=== PATIENT | female | born 1935 | race Caucasian/White ===

== ENCOUNTER 2020-10-29 12:06 | Day surgery (SDC) | payer MEDICARE, OTHER ==
[~2020-10-29] VITALS: Ht 160 cm; Wt 66.8 kg
[2020-10-29] VITALS (10 sets, daily range): BP systolic 137–175; BP diastolic 53–109
[~2020-10-29 12:06] MED LIST: AMLO2.5T4 PO; BLOO-1521 MC; BLOO-438 MC; CHOL200012 PO; GLIM4TAB5 PO; IPRA0.2S51 IH; LEVO250T46 PO; LINA5TAB PO; LOSA50TA63 PO; LUTE6CAP2 PO; METF-397 PO; MUPI15CR11 TP; OMEP40CA6 PO; TERB15CR6 TP; TORS5TAB5 PO; TRM50T PO; WARF4TAB3 PO; WRF1T PO
[2020-10-29] MEDS ORDERED: LIDOCAINE 1% INJ 20 ML 20 ML VIAL ONE (12:37)
[2020-10-29] MEDS ORDERED: BUPIVACAINE 0.5% 30 ML (SENSORCAINE) VIAL ONE (12:37)
[2020-10-29] MEDS ORDERED: fentaNYL INJ 100 MCG/2 ML AMP ONE (13:08)
[2020-10-29] MEDS ORDERED: proPOfol 200 MG/20 ML (DIPRIVAN) VIAL IV ONE (13:08)
[2020-10-29] MEDS ORDERED: ONDANSETRON 4 MG/2 ML (SDV) Z0FRAN ONE (13:08)
[2020-10-29] MEDS ORDERED: LIDOCAINE PF 2% 5 ML (XYLOCAINE) VIAL ONE (13:08)
[2020-10-29] MEDS ORDERED: CLINDAMYCIN 600 MG/50 ML IVPB 50 ML IV ONE ×2 (13:09→13:15)
[2020-10-29] MEDS ORDERED: LACTATED RINGERS 1,000 ML IV PRN (13:15)
--- NOTE | 2020-10-29 13:25 | Progress Note-Pre Operative ---
Pre-Operative Progress Note H&P Reviewed The H&P was reviewed, patient examined and no changes noted. Date Seen by Provider: Oct 29, 2020 Time Seen by Provider: 13:24 Date H&P Reviewed: Oct 29, 2020 Time H&P Reviewed: 13:24 Pre-Operative Diagnosis: Osteomyelitis, right 2nd toe BANDAR CROOKS DPM Oct 29, 2020 13:25
[2020-10-29] MEDS ORDERED: SEVOFLURANE (ULTANE) 15 ML INHAL SOLN ONE (14:15)
--- OUTSIDE RECORDS SUMMARY | 2020-10-29 14:21 | XMS REPORT ---
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 Name Role Phone Chaz Damon PCP Jazmine Meade PreferredProvider Unavailable Allergies and Adverse Reactions Name Reaction Notes aspirin Atenolol Buprenex buspirone captopril furosemide Guaifenesin hydrochlorothiazide lisinopril morphine nitrofurantoin PENICILLINS terazosin celery [place] Hydrocodone Compound codeine sulfate gabapentin dizzy Plan of Treatment Planned Activity Comments Planned Date Planned Time Plan/Goal osteopenia right second toecellulitistoe ulcer right second toe 09/29/2020 10:00 AM HGB A1C 12/05/2018 12:00 AM BMP 12/09/2018 12:00 AM PT/INR 12/24/2018 12:00 AM CBC W/ AUTO DIFF (RFLX MAN DIFF IF IND). 05/04/2020 12:00 AM COMPREHENSIVE METABOLIC PANEL 05/04/2020 12:00 AM HEMOGLOBIN A1C 05/04/2020 12:00 AM BASIC METABOLIC PANEL 07/26/2020 12:00 AM BMP 08/31/2020 12:00 AM Medications Active Name Start Date Estimated Completion Date SIG Co mments [id number] 2,000 unit oral capsule take 1 ca psule by oral route daily lutein 6 mg oral capsule take 1 capsule b y oral route daily for 30 days Tradjenta 5 mg oral tablet take 1 tablet (5 mg) by oral route once daily mupirocin 2 % topical ointment 11/13/2019 a pply a small amount to the affected area by topical route 3 times per day as needed tramadol 50 mg oral tablet 12/02/2019 take 1 tablet (50 mg) by oral route every 6 hours as needed glimepiride 4 mg oral tablet 12/08/2019 12/02/2020 lester e 1 tablet by oral route before breakfast and 1 tablet before evening meal metformin 500 mg oral tablet 12/15/2019 12/09/2020 Lester e one tablet by oral route once daily in the morning ipratropium bromide 0.02 % inhalation solution 02/23/2020 inhale 1.25 milliliters (250 mcg) via nebulizer by inhalation route 3 times per day torsemide 5 mg oral tablet 04/22/2020 04/17/2021 take 1 tablet (5 mg) by oral route once daily for 90 days Warfarin Sodium 4 MG Oral Tablet 04/27/2020 04/22/2021 TAKE 1 TABLET BY MOUTH ONCE DAILY DIRECTED amlodipine 2.5 mg oral tablet 06/16/2020 TA KE 1 TABLET BY MOUTH TWICE DAILY FOR 90 DAYS omeprazole 40 mg capsule,delayed release 07/08/2020 TAKE 1 CAPSULE BY MOUTH TWICE DAILY BEFORE MEAL(S) losartan oral tablet 50 mg 07/21/2020 11/18/2020 take 1 tablet (50 mg) by oral route once daily for 30 days warfarin oral tablet 1 mg 08/30/2020 TAKE 1 and 1/2 TABLET BY MOUTH DIRECTED Name Start Date Expiration Date SIG Comments Daily Multiple oral tablet 02/28/2018 03/30/2018 take 1 tablet by oral route daily for 30 days fluticasone 50 mcg/actuation nasal spray,suspension 05/04/2018 05/11/2018 inhale 1 spray (50 mcg) in each nostril by intranasal route once daily for 7 days warfarin 4 mg oral tablet 11/12/2018 11/07/2019 take 1 tablet (4 mg) by oral route once daily or as directed Zithromax Z-Mello 250 mg oral tablet 01/02/2019 01/07/2019 take 2 tablets (500 mg) by oral route once daily for 1 day then 1 tablet (250 mg) by oral route once daily for 4 days losartan 100 mg oral tablet 03/25/2019 03/19/2020 take 1 tablet (100 mg) by oral route once daily for 30 days cefuroxime axetil 500 mg oral tablet 05/28/2019 06/04/2019 take 1 tablet (500 mg) by oral route 2 times per day for 7 days doxycycline hyclate 100 mg oral tablet 09/02/2019 09/12/2019 take 1 tablet (100 mg) by oral route 2 times per day for 10 days Bactrim DS 800-160 mg oral tablet 09/29/2019 10/09/2019 take 1 tablet by oral route every 12 hours for 10 days cephalexin 500 mg oral capsule 03/29/2020 04/08/2020 t linda 1 capsule (500 mg) by oral route every 12 hours for 10 days terbinafine HCl 1 % topical cream 08/25/2020 09/08/2020 apply to the affected and surrounding areas of skin by topical route once daily for 14 days levofloxacin oral tablet 250 mg 09/20/2020 09/30/2020 take 1 tablet (250 mg) by oral route once daily for 10 days Discontinued Name Start Date Discontinued Date SIG Comments potassium chloride 10 mEq oral capsule, extended release 019 08/30/2020 take 1 capsule by oral route daily for 30 days potassium lab results high Cipro 500 mg oral tablet 09/29/2019 09/29/2019 take 1 tablet (500 mg) by oral route every 12 hours for 10 days gabapentin 100 mg oral capsule 09/24/2020 10/04/2020 t linda 1 capsule by oral route 3 times a day prn pain Problem List Not available. Vital Signs Date Time BP-Sys(mm[Hg] BP-Shweta(mm[Hg]) HR(bpm) RR(rpm) Temp WT HT HC BMI BSA BMI Percentile O2 Sat(%) 10/26/2020 11:20:00 AM 158 mm[Hg] 70 mm[Hg] 111 {beats}/min 18 rpm 98.1 F 148 lbs 95 % 10/13/2020 11:07:00 AM 180 mm[Hg] 72 mm[Hg] 68 {beats}/min 18 rpm 97.7 F 153 lbs 96 % 10/04/2020 2:05:00 PM 170 mm[Hg] 70 mm[Hg] 93 {beats}/min 18 rpm 97.9 F 153 lbs 95 % 09/27/2020 11:53:00 AM 160 mm[Hg] 64 mm[Hg] 89 {beats}/min 18 rpm 98.4 F 152 lbs 93 % 09/20/2020 3:59:00 PM 184 mm[Hg] 64 mm[Hg] 97 {beats}/min 18 rpm 97.3 F 153 lbs 95 % 09/16/2020 12:38:00 PM 164 mm[Hg] 70 mm[Hg] 86 {beats}/min 18 rpm 97.3 F 154 lbs 97 % 08/30/2020 2:57:00 PM 130 mm[Hg] 78 mm[Hg] 81 {beats}/min 18 rpm 97.7 F 151 lbs 98 % 08/25/2020 1:17:00 PM 132 mm[Hg] 78 mm[Hg] 80 {beats}/min 18 rpm 97.3 F 152 lbs 96 % 08/03/2020 1:45:00 PM 150 mm[Hg] 80 mm[Hg] 77 {beats}/min 18 rpm 98.2 F 152 lbs 99 % 07/21/2020 1:27:00 PM 160 mm[Hg] 70 mm[Hg] 73 {beats}/min 18 rpm 96.8 F 152 lbs 97 % 07/02/2020 11:32:00 AM 130 mm[Hg] 90 mm[Hg] 63 {beats}/min 18 rpm 98.1 F 154 lbs 96 % 06/21/2020 1:46:00 PM 145 mm[Hg] 60 mm[Hg] 87 {beats}/min 18 rpm 99 F 15 4 lbs 94 % 05/04/2020 1:18:00 PM 142 mm[Hg] 62 mm[Hg] 80 {beats}/min 20 rpm 97.5 F 157.25 lbs 63 in 27.8553 kg/m2 1.7806 m2 96 % 04/05/2020 1:40:00 PM 144 mm[Hg] 62 mm[Hg] 92 {beats}/min 20 rpm 98.1 F 158 lbs 64 in 27.12 kg/m2 1.80 m2 95 % 03/29/2020 2:21:00 PM 158 mm[Hg] 82 mm[Hg] 03/29/2020 1:56:00 PM 179 mm[Hg] 80 mm[Hg] 70 {beats}/min 18 rpm 98.1 F 97 % 03/22/2020 2:46:00 PM 135 mm[Hg] 70 mm[Hg] 86 {beats}/min 18 rpm 98.4 F 160 lbs 94 % 02/23/2020 3:56:00 PM 150 mm[Hg] 75 mm[Hg] 70 {beats}/min 18 rpm 97 F 154 lbs 64 in 26.4338 kg/m2 1.776 m2 98 % 11/11/2019 2:00:00 PM 182 mm[Hg] 86 mm[Hg] 70 {beats}/min 20 rpm 154 l bs 96 % 10/13/2019 10:15:00 AM 150 mm[Hg] 82 mm[Hg] 87 {beats}/min 19 rpm 98.6 F 162 lbs 96 % 09/29/2019 1:45:00 PM 148 mm[Hg] 72 mm[Hg] 75 {beats}/min 18 rpm 99.1 F 155 lbs 95 % 09/02/2019 11:33:00 AM 160 mm[Hg] 72 mm[Hg] 93 {beats}/min 19 rpm 99.1 F 154 lbs 95 % 08/21/2019 11:31:00 AM 174 mm[Hg] 80 mm[Hg] 82 {beats}/min 22 rpm 97 % 08/06/2019 1:32:00 PM 144 mm[Hg] 72 mm[Hg] 80 {beats}/min 20 rpm 99.1 F 155 lbs 90 % 07/17/2019 10:39:00 AM 174 mm[Hg] 82 mm[Hg] 85 {beats}/min 20 rpm 97.3 F 155 lbs 94 % 03/19/2019 11:15:00 AM 156 mm[Hg] 78 mm[Hg] 102 {beats}/min 16 rpm 99 F 158 lbs 64 in 27.1204 kg/m2 1.7989 m2 93 % 12/19/2018 11:29:00 AM 162 mm[Hg] 90 mm[Hg] 73 {beats}/min 14 rpm 97.7 F 158.2 lbs 66 in 25.53 kg/m2 1.83 m2 95 % 12/12/2018 9:57:00 AM 140 mm[Hg] 82 mm[Hg] 87 {beats}/min 97.5 F 160.375 lbs 66 in 25.8849 kg/m2 1.8405 m2 95 % 12/05/2018 11:51:00 AM 150 mm[Hg] 78 mm[Hg] 90 {beats}/min 16 rpm 99.1 F 158 lbs 66 in 25.50 kg/m2 1.83 m2 96 % 11/27/2018 10:22:00 AM 190 mm[Hg] 88 mm[Hg] 86 {beats}/min 18 rpm 99 F 161 lbs 64 in 27.6353 kg/m2 1.8159 m2 96 % 11/04/2018 11:00:00 AM 172 mm[Hg] 94 mm[Hg] 65 {beats}/min 22 rpm 99 F 1 61 lbs 96 % 10/23/2018 10:37:00 AM 130 mm[Hg] 70 mm[Hg] 76 {beats}/min 16 rpm 99.7 F 160 lbs 64 in 27.4637 kg/m2 1.8103 m2 94 % 09/23/2018 9:56:00 AM 144 mm[Hg] 62 mm[Hg] 72 {beats}/min 16 rpm 98.1 F 161.125 lbs 64 in 27.66 kg/m2 1.82 m2 96 % 08/21/2018 10:24:00 AM 210 mm[Hg] 100 mm[Hg] 76 {beats}/min 20 rpm 98.2 F 160.25 lbs 96 % 07/24/2018 10:30:00 AM 186 mm[Hg] 98 mm[Hg] 78 {beats}/min 18 rpm 97.9 F 161.375 lbs 64 in 27.6997 kg/m2 1.8181 m2 96 % 07/16/2018 1:58:00 PM 172 mm[Hg] 90 mm[Hg] 70 {beats}/min 20 rpm 97.4 F 162.5 lbs 97 % 05/27/2018 10:35:00 AM 170 mm[Hg] 86 mm[Hg] 66 {beats}/min 18 rpm 99 F 161 lbs 64 in 27.6353 kg/m2 1.8159 m2 97 % 05/04/2018 12:02:00 PM 202 mm[Hg] 78 mm[Hg] 82 {beats}/min 20 rpm 97.7 F 160.125 lbs 96 % 04/16/2018 2:27:00 PM 150 mm[Hg] 74 mm[Hg] 72 {beats}/min 18 rpm 97.8 F 163 lbs 64 in 27.9786 kg/m2 1.8272 m2 98 % 04/01/2018 1:39:00 PM 154 mm[Hg] 82 mm[Hg] 73 {beats}/min 18 rpm 98.4 F 160.5 lbs 64 in 27.55 kg/m2 1.81 m2 98 % 03/25/2018 11:00:00 AM 152 mm[Hg] 84 mm[Hg] 75 {beats}/min 18 rpm 100 F 159.312 lbs 64 in 27.3456 kg/m2 1.8064 m2 94 % 03/13/2018 8:59:00 AM 150 mm[Hg] 88 mm[Hg] 67 {beats}/min 18 rpm 97.5 F 161.5 lbs 64 in 27.72 kg/m2 1.82 m2 96 % 03/07/2018 1:46:00 PM 172 mm[Hg] 84 mm[Hg] 75 {beats}/min 18 rpm 97.7 F 160.125 lbs 64 in 27.4851 kg/m2 1.811 m2 98 % 02/28/2018 3:02:00 PM 150 mm[Hg] 88 mm[Hg] 84 {beats}/min 20 rpm 97.2 F 159 lbs 64 in 27.29 kg/m2 1.80 m2 96 % Social History Name Description Comments Tobacco Former smoker Alcohol Never History of Procedures Date Ordered Description Order Status 03/08/2018 11:21 AM PROTHROMBIN TIME Reviewed 03/13/2018 9:31 AM PROTHROMBIN TIME Reviewed 03/13/2018 12:00 AM COLLECTION VENOUS BLOOD VENIPUNCTURE Rev iewed 03/13/2018 12:00 AM CAPILLARY BLOOD DRAW Reviewed 03/13/2018 12:00 AM COMPLETE CBC W/AUTO DIFF WBC Reviewed 03/13/2018 12:00 AM COMPREHEN METABOLIC PANEL Reviewed 03/13/2018 12:00 AM ASSAY OF MAGNESIUM Reviewed 03/13/2018 12:00 AM PROTHROMBIN TIME Reviewed 03/15/2018 12:00 AM CAPILLARY BLOOD DRAW Reviewed 03/15/2018 8:43 AM PROTHROMBIN TIME Reviewed 03/22/2018 12:00 AM CAPILLARY BLOOD DRAW Reviewed 03/25/2018 12:00 AM COLLECTION VENOUS BLOOD VENIPUNCTURE Rev iewed 03/25/2018 12:00 AM CAPILLARY BLOOD DRAW Reviewed 03/25/2018 12:00 AM COMPLETE CBC W/AUTO DIFF WBC Reviewed 03/25/2018 12:00 AM COMPREHEN METABOLIC PANEL Reviewed 03/25/2018 12:00 AM ASSAY OF LIPASE Reviewed 03/25/2018 12:00 AM PROTHROMBIN TIME Reviewed 03/25/2018 12:00 AM HELICOBACTER PYLORI ANTIBODY Reviewed 03/25/2018 2:49 PM PROTHROMBIN TIME Reviewed 04/01/2018 12:00 AM CAPILLARY BLOOD DRAW Reviewed 05/27/2018 12:00 AM COLLECTION VENOUS BLOOD VENIPUNCTURE Rev iewed 05/27/2018 12:00 AM CAPILLARY BLOOD DRAW Reviewed 05/27/2018 12:00 AM URINALYSIS AUTO W/O SCOPE Reviewed 05/27/2018 12:00 AM COMPLETE CBC W/AUTO DIFF WBC Reviewed 05/27/2018 12:00 AM METABOLIC PANEL TOTAL CA Reviewed 05/27/2018 12:00 AM GLYCOSYLATED HEMOGLOBIN TEST Reviewed 05/27/2018 12:00 AM MISC Lab Reviewed 05/27/2018 11:08 AM PROTHROMBIN TIME Reviewed 06/03/2018 12:00 AM ASSAY OF PROTEIN URINE Reviewed 07/16/2018 12:00 AM RADEX RIBS UNI W/POSTEROANT CH MINIMUM 3 VIEWS Reviewed 07/16/2018 2:56 PM PROTHROMBIN TIME Reviewed 07/16/2018 12:00 AM CAPILLARY BLOOD DRAW Reviewed 07/24/2018 12:00 AM COLLECTION VENOUS BLOOD VENIPUNCTURE Rev iewed 07/24/2018 12:00 AM URINALYSIS AUTO W/O SCOPE Reviewed 07/24/2018 12:00 AM COMPLETE CBC W/AUTO DIFF WBC Reviewed 07/24/2018 12:00 AM COMPREHEN METABOLIC PANEL Reviewed 07/24/2018 12:00 AM CAPILLARY BLOOD DRAW Reviewed 07/24/2018 11:11 AM PROTHROMBIN TIME Reviewed 07/24/2018 12:00 AM ZC ABDOMEN 2 VIEW Reviewed 08/07/2018 1:38 PM PROTHROMBIN TIME Reviewed 08/07/2018 12:00 AM CAPILLARY BLOOD DRAW Reviewed 08/21/2018 12:00 AM CAPILLARY BLOOD DRAW Reviewed 08/21/2018 11:01 AM PROTHROMBIN TIME Reviewed 09/04/2018 12:00 AM CAPILLARY BLOOD DRAW Reviewed 09/04/2018 9:37 AM PROTHROMBIN TIME Reviewed 09/04/2018 12:00 AM COLLECTION VENOUS BLOOD VENIPUNCTURE Rev iewed 09/04/2018 12:00 AM GLYCOSYLATED HEMOGLOBIN TEST Reviewed 09/18/2018 10:08 AM PROTHROMBIN TIME Reviewed 09/18/2018 12:00 AM CAPILLARY BLOOD DRAW Reviewed 09/23/2018 12:00 AM COLLECTION VENOUS BLOOD VENIPUNCTURE Rev iewed 09/23/2018 12:00 AM GENERAL HEALTH PANEL Reviewed 09/23/2018 12:00 AM FREE ASSAY (FT-3) Reviewed 09/23/2018 12:00 AM ASSAY OF FREE THYROXINE Reviewed 09/23/2018 12:00 AM Consult/Referral Reviewed 09/23/2018 12:00 AM IMPLANT PAT-ACTIVE HT RECORD Reviewed 09/23/2018 12:00 AM ELECTROCARDIOGRAM TRACING Reviewed 10/23/2018 11:16 AM PROTHROMBIN TIME Reviewed 12/05/2018 12:00 AM COLLECTION VENOUS BLOOD VENIPUNCTURE Rev iewed 12/05/2018 12:00 AM COMPLETE CBC W/AUTO DIFF WBC Reviewed 12/05/2018 12:00 AM COMPREHEN METABOLIC PANEL Reviewed 12/05/2018 12:00 AM ASSAY OF AMYLASE Reviewed 12/05/2018 12:00 AM ASSAY OF LIPASE Reviewed 12/05/2018 12:00 AM URNLS DIP STICK/TABLET REAGENT AUTO MICR OSCOPY Reviewed 12/05/2018 12:[address] ABD & PELV W/CONTRAST Reviewed 12/17/2018 12:00 AM NRV CNDJ TST 5-6 STUDIES Reviewed 12/17/2018 12:00 AM MUSC TEST DONE W/N TEST COMP Reviewed 12/24/2018 3:05 PM PROTHROMBIN TIME Reviewed 12/24/2018 12:00 AM GLYCOSYLATED HEMOGLOBIN TEST Reviewed 12/24/2018 12:00 AM INFLUENZA VACCINE SPLT PRSRV FREE INC AN TIGEN IM Reviewed 03/19/2019 12:00 AM BREAST TOMOSYNTHESIS BI Reviewed 03/19/2019 12:00 AM COLLECTION VENOUS BLOOD VENIPUNCTURE Rev iewed 03/19/2019 12:00 AM GENERAL HEALTH PANEL Reviewed 03/19/2019 12:00 AM GLYCOSYLATED HEMOGLOBIN TEST Reviewed 03/19/2019 12:00 AM URINALYSIS AUTO W/O SCOPE Reviewed 03/19/2019 12:00 AM MISC Lab Reviewed 03/19/2019 11:49 AM PROTHROMBIN TIME Reviewed 04/17/2019 4:32 PM PROTHROMBIN TIME Reviewed 09/23/2018 12:00 AM ZC CHEST 2 VIEW Reviewed 07/17/2019 12:00 AM COLLECTION VENOUS BLOOD VENIPUNCTURE Rev iewed 07/17/2019 12:00 AM COMPLETE CBC W/AUTO DIFF WBC Reviewed 07/17/2019 12:00 AM COMPREHEN METABOLIC PANEL Reviewed 07/17/2019 12:00 AM GLYCOSYLATED HEMOGLOBIN TEST Reviewed 07/17/2019 11:30 AM PROTHROMBIN TIME Reviewed 08/06/2019 2:00 PM PROTHROMBIN TIME Reviewed 08/20/2019 11:44 AM PROTHROMBIN TIME Reviewed 09/02/2019 12:00 AM CUL BACT XCPT URINE BLOOD/STOOL AEROBIC ISOL Reviewed 09/02/2019 1:00 PM PROTHROMBIN TIME Reviewed 09/29/2019 1:55 PM PROTHROMBIN TIME Reviewed 10/13/2019 12:00 AM COMPLETE CBC W/AUTO DIFF WBC Reviewed 10/13/2019 12:00 AM COMPREHEN METABOLIC PANEL Reviewed 10/13/2019 12:00 AM CAPILLARY BLOOD DRAW Reviewed 10/13/2019 12:00 AM URNLS DIP STICK/TABLET REAGENT AUTO MICR OSCOPY Reviewed 10/13/2019 12:00 AM COLLECTION VENOUS BLOOD VENIPUNCTURE Rev iewed 10/13/2019 11:25 AM PROTHROMBIN TIME Reviewed 10/16/2019 2:47 PM PROTHROMBIN TIME Reviewed 10/22/2019 4:29 PM PROTHROMBIN TIME Reviewed 10/30/2019 10:29 AM PROTHROMBIN TIME Reviewed 11/06/2019 3:05 PM PROTHROMBIN TIME Reviewed 11/11/2019 2:39 PM PROTHROMBIN TIME Reviewed 11/12/2019 12:00 AM Wound Care Consult Reviewed 12/09/2019 1:41 PM PROTHROMBIN TIME Reviewed 12/09/2019 1:43 PM PROTHROMBIN TIME Reviewed 12/22/2019 12:00 AM CAPILLARY BLOOD DRAW Reviewed 12/22/2019 10:47 AM PROTHROMBIN TIME Reviewed 12/22/2019 12:00 AM [facility] - flu vaccine administratio n Reviewed 12/22/2019 12:00 AM INFLUENZA VACCINE SPLT PRSRV FREE INC AN TIGEN IM Reviewed 01/07/2020 1:00 PM PROTHROMBIN TIME Reviewed 01/20/2020 11:44 AM PROTHROMBIN TIME Reviewed 02/10/2020 11:51 AM PROTHROMBIN TIME Reviewed 02/24/2020 5:38 PM PROTHROMBIN TIME Reviewed 03/03/2020 12:00 AM COVID-19 Testing Reviewed 03/15/2020 3:32 PM PROTHROMBIN TIME Reviewed 03/22/2020 12:00 AM IM ADM PRQ ID SUBQ/IM NJXS 1 VACCINE Rev iewed 03/22/2020 12:00 AM TDAP VACCINE 7 YRS/> IM Reviewed 04/22/2020 12:17 PM PROTHROMBIN TIME Reviewed 05/04/2020 2:26 PM PROTHROMBIN TIME Reviewed 05/04/2020 12:00 AM COLLECTION VENOUS BLOOD VENIPUNCTURE Rev iewed 05/04/2020 12:00 AM URNLS DIP STICK/TABLET REAGENT AUTO MICR OSCOPY Reviewed 05/04/2020 12:00 AM COMPLETE CBC W/AUTO DIFF WBC Reviewed 05/04/2020 12:00 AM COMPREHEN METABOLIC PANEL Reviewed 05/27/2020 12:00 AM COVID-19 Testing Reviewed 05/31/2020 11:28 AM PROTHROMBIN TIME Reviewed 06/21/2020 12:00 AM ZC CHEST 2 VIEW Reviewed 06/21/2020 12:00 AM COLLECTION VENOUS BLOOD VENIPUNCTURE Rev iewed 06/21/2020 12:00 AM GENERAL HEALTH PANEL Reviewed 06/21/2020 12:00 AM GLYCOSYLATED HEMOGLOBIN TEST Reviewed 06/21/2020 12:00 AM VITAMIN B-12 Reviewed 06/21/2020 12:00 AM FIBRIN DEGRADATION QUANT Reviewed 06/21/2020 12:00 AM ASSAY OF MAGNESIUM Reviewed 06/22/2020 11:34 AM PROTHROMBIN TIME Reviewed 06/25/2020 12:00 AM COLLECTION VENOUS BLOOD VENIPUNCTURE Rev iewed 06/25/2020 12:00 AM COMPLETE CBC W/AUTO DIFF WBC Reviewed 06/25/2020 12:00 AM COMPREHEN METABOLIC PANEL Reviewed 06/25/2020 12:00 AM OCCULT BLOOD FECES Reviewed 06/29/2020 12:00 AM ASSAY OF PROTEIN URINE Reviewed 06/29/2020 12:00 AM CREATININE CLEARANCE TEST Reviewed 07/02/2020 12:00 AM METABOLIC PANEL TOTAL CA Reviewed 07/02/2020 12:00 AM COMPLETE CBC W/AUTO DIFF WBC Reviewed 07/02/2020 12:00 AM COLLECTION VENOUS BLOOD VENIPUNCTURE Rev iewed 07/21/2020 12:00 AM COLLECTION VENOUS BLOOD VENIPUNCTURE Rev iewed 07/21/2020 12:00 AM COMPLETE CBC W/AUTO DIFF WBC Reviewed 07/21/2020 12:00 AM METABOLIC PANEL TOTAL CA Reviewed 08/03/2020 12:00 AM RADEX FOOT COMPLETE MINIMUM 3 VIEWS Revi ewed 08/03/2020 12:00 AM METABOLIC PANEL TOTAL CA Reviewed 08/25/2020 12:00 AM COLLECTION VENOUS BLOOD VENIPUNCTURE Rev iewed 08/25/2020 12:00 AM COMPLETE CBC W/AUTO DIFF WBC Reviewed 08/25/2020 12:00 AM COMPREHEN METABOLIC PANEL Reviewed 08/25/2020 12:00 AM FUNGUS ISOLATION CULTURE Reviewed 08/25/2020 12:00 AM TISSUE EXAM FOR FUNGI Reviewed 08/25/2020 12:00 AM SMEAR WET M[place] SALINE/INK Reviewed 08/25/2020 2:19 PM PROTHROMBIN TIME Reviewed 09/10/2020 8:48 AM PROTHROMBIN TIME Reviewed 09/16/2020 12:00 AM CUL BACT XCPT URINE BLOOD/STOOL AEROBIC ISOL Reviewed 09/20/2020 4:33 PM PROTHROMBIN TIME Reviewed 09/21/2020 12:00 AM METABOLIC PANEL TOTAL CA Reviewed 09/21/2020 12:00 AM COLLECTION VENOUS BLOOD VENIPUNCTURE Rev iewed Results Summary Date and Description Results 02/28/2018 3:26 PM Falls in last 6 months? Yes Unsteady or worry about falling? No Fall Risk Assessment Not At Risk 03/08/2018 11:21 AM INR 3.20 secs 03/13/2018 9:06 AM Falls in last 6 months? No U nsteady or worry about falling? No Fall Risk Assessment Not At Risk 03/13/2018 9:49 AM INR 1.70 secs 03/25/2018 11:05 AM Falls in last 6 months? No U nsteady or worry about falling? No Fall Risk Assessment Not At Risk 03/25/2018 12:00 PM LIPASE 29 GLUCOSE 261 SODIUM 142 POTASSIUM 4.6 CHLORIDE 103.0 mmol/LCO2 28 BUN 25.0 mg/dLCREATININE 1.50 mg/dLSGOT/AST 20 SGPT/ALT 19 ALK PHOS 116 TOTAL PROTEIN 6.9 ALBUMIN 3.9 TOTAL BILI 0.5 CALCIUM 9.10 mg/dLAGE 82 GFR NonAA 33 GFR AA 40 eGFR 33 eGFR AA* 40 WBC 6.9 RBC 4.48 HGB 12.50 g/dLHCT 40.90 %MCV 91.0 fLMCH 27.90 pgMCHC 30.60 g/dLRDW SD 45 fLRDW CV 13.70 %MPV 11.20 fLPLT 219 NRBC# 0.00 NRBC% 0.0 %NEUT 79.1 %LYMP 8.6 %MONO 7.1 %EOS 3.0 %BASO 0.9 #NEUT 5.46 #LYMP 0.59 #MONO 0.49 #EOS 0.21 #BASO 0.06 MANUAL DIFF NOT IND H. pylori, IgG Abs 0.25 H. pylori, IgA Abs <9.0 H pylori, IgM Abs <9.0 03/25/2018 2:49 PM INR 2.20 secs 04/01/2018 12:00 AM INR 1.90 secs 04/01/2018 1:45 PM Falls in last 6 months? No U nsteady or worry about falling? No Fall Risk Assessment Not At Risk 04/16/2018 2:36 PM Falls in last 6 months? No U nsteady or worry about falling? No Fall Risk Assessment Not At Risk 05/27/2018 10:43 AM Falls in last 6 months? No U nsteady or worry about falling? No Fall Risk Assessment Not At Risk 05/27/2018 11:05 AM GLUCOSE 231 SODIUM 139 POTAS SIUM 4.6 CHLORIDE 101.0 mmol/LCO2 29 BUN 34.0 mg/dLCREATININE 1.50 mg/dLCALCIUM 9.80 mg/dLAGE 82 GFR NonAA 33 GFR AA 40 eGFR 33 eGFR AA* 40 WBC 6.5 RBC 4.75 HGB 13.0 g/dLHCT 43.0 %MCV 91.0 fLMCH 27.40 pgMCHC 30.20 g/dLRDW SD 45 fLRDW CV 13.80 %MPV 11.70 fLPLT 220 NRBC# 0.00 NRBC% 0.0 %NEUT 76.9 %LYMP 9.7 %MONO 8.7 %EOS 3.1 %BASO 0.8 #NEUT 4.98 #LYMP 0.63 #MONO 0.56 #EOS 0.20 #BASO 0.05 MANUAL DIFF NOT IND COLOR YELLOW APPEARANCE CLEAR SPEC GRAV 1.015 pH 5.5 PROTEIN 100 GLUCOSE NEGATIVE KETONE NEGATIVE BILIRUBIN NEGATIVE BLOOD NEGATIVE NITRITE NEGATIVE LEUK SCREEN NEGATIVE MICRO IND? SEE BELOW WBC/HPF 0-5 RBC/HPF RARE CASTS/LPF NEGATIVE CRYSTALS TRACE AMORPH MUCOUS THRDS NEGATIVE BACTERIA FEW EPITH CELLS NEGATIVE TRICHOMONAS NEGATIVE YEAST NEGATIVE HGB A1C 8.60 %Est Avg Glucose 200.1 CREAT UR 24.9 MICROALBUMIN UR 63.1 ALB:CREAT RATIO 2534 05/27/2018 11:08 AM INR 2.40 secs 07/16/2018 2:56 PM INR 1.70 secs 07/24/2018 10:35 AM Falls in last 6 months? No U nsteady or worry about falling? No Fall Risk Assessment Not At Risk 07/24/2018 11:00 AM WBC 5.8 RBC 4.50 HGB 12.40 g /dLHCT 39.90 %MCV 89.0 fLMCH 27.60 pgMCHC 31.10 g/dLRDW SD 44 fLRDW CV 13.50 %MPV 11.90 fLPLT 186 NRBC# 0.00 NRBC% 0.0 %NEUT 78.3 %LYMP 8.5 %MONO 9.2 %EOS 2.8 %BASO 0.7 #NEUT 4.51 #LYMP 0.49 #MONO 0.53 #EOS 0.16 #BASO 0.04 MANUAL DIFF NOT IND COLOR YELLOW APPEARANCE CLEAR SPEC GRAV 1.010 pH 6.0 PROTEIN 100 GLUCOSE NEGATIVE KETONE NEGATIVE BILIRUBIN NEGATIVE BLOOD NEGATIVE NITRITE NEGATIVE LEUK SCREEN NEGATIVE MICRO IND? NOT GLUCOSE 191 SODIUM 137 POTASSIUM 4.6 CHLORIDE 103.0 mmol/LCO2 23 BUN 25.0 mg/dLCREATININE 1.450 mg/dLSGOT/AST 19 SGPT/ALT 13 ALK PHOS 116 TOTAL PROTEIN 7.0 ALBUMIN 3.9 TOTAL BILI 0.8 AGE 82 GFR NonAA 35 GFR AA 42 eGFR 35 eG FR AA* 42 07/24/2018 11:11 AM INR 2.30 secs 08/07/2018 1:38 PM INR 3.30 secs 08/21/2018 11:01 AM INR 1.50 secs 09/04/2018 9:37 AM INR 2.80 secs 09/04/2018 11:00 AM HGB A1C 7.90 %Est Avg Glucos e 180.0 09/18/2018 10:08 AM INR 2.60 secs 09/23/2018 10:50 AM Triiodothyronine (T3),Free 2 .9 TSH 2.51 FREE T4 1.05 WBC 7.2 RBC 4.70 HGB 13.0 g/dLHCT 41.30 %MCV 88.0 fLMCH 27.70 pgMCHC 31.50 g/dLRDW SD 44 fLRDW CV 13.70 %MPV 11.20 fLPLT 185 NRBC# 0.00 NRBC% 0.0 GLUCOSE 171 SODIUM 140 POTASSIUM 4.7 CHLORIDE 105.0 mmol/LCO2 26 BUN 31.0 mg/dLCREATININE 1.60 mg/dLSGOT/AST 18 SGPT/ALT 17 ALK PHOS 123 TOTAL PROTEIN 7.3 ALBUMIN 4.2 TOTAL BILI 0.5 CALCIUM 9.70 mg/dLAGE 82 GFR NonAA 31 GFR AA 38 eGFR 31 eGFR AA* 38 10/23/2018 11:16 AM INR 2.40 secs 12/05/2018 12:45 PM GLUCOSE 224 SODIUM 136 POTAS SIUM 4.6 CHLORIDE 101.0 mmol/LCO2 25 BUN 37.0 mg/dLCREATININE 1.770 mg/dLSGOT/AST 22 SGPT/ALT 19 ALK PHOS 114 TOTAL PROTEIN 7.6 ALBUMIN 4.2 TOTAL BILI 0.7 CALCIUM 9.20 mg/dLAGE 83 GFR NonAA 27 GFR AA 33 eGFR 27 mL/min/1.73meGFR AA* 33 mL/min/1.73mWBC 6.7 RBC 4.76 HGB 13.30 g/dLHCT 42.50 %MCV 89.0 fLMCH 27.90 pgMCHC 31.30 g/dLRDW SD 44 fLRDW CV 13.40 %MPV 12.0 fLPLT 185 x10E3/uLNRBC# 0.00 NRBC% 0.0 %NEUT 79.1 %LYMP 9.4 %MONO 6.8 %EOS 3.1 %BASO 1.0 #NEUT 5.32 #LYMP 0.63 #MONO 0.46 #EOS 0.21 #BASO 0.07 MANUAL DIFF NOT IND COLOR Colorless CLARITY Clear SPEC GRAV 1.008 pH 5.0 PROTEIN 50 GLUCOSE Normal KETONE Negative BILIRUBIN Negative BLOOD Negative NITRITE Negative LEUK SCREEN Negative RBC/HPF 0-3 WBC/HPF 0-5 BACTERIA/HPF None Seen SQUAMOUS EPI/LPF Few CULT ORDERED YES AMYLASE 63 IU/LLIPASE 30 12/24/2018 3:05 PM INR 2.20 secs 12/24/2018 3:07 PM HGB A1C 8.50 %Est Avg Glucos e 197.3 03/19/2019 11:45 AM TSH 2.90 GLUCOSE 203 SODIUM 140 POTASSIUM 4.6 CHLORIDE 103.0 mmol/LCO2 29 BUN 29.0 mg/dLCREATININE 1.490 mg/dLSGOT/AST 23 SGPT/ALT 18 ALK PHOS 100 TOTAL PROTEIN 7.2 ALBUMIN 4.1 TOTAL BILI 0.6 CALCIUM 9.0 mg/dLAGE 83 GFR NonAA 33 GFR AA 40 eGFR 33 mL/min/1.73meGFR AA* 40 mL/min/1.73mWBC 6.3 RBC 4.54 HGB 12.60 g/dLHCT 41.60 %MCV 92.0 fLMCH 27.80 pgMCHC 30.30 g/dLRDW SD 46 fLRDW CV 13.70 %MPV 11.80 fLPLT 193 x10E3/uLNRBC# 0.00 NRBC% 0.0 COLOR Light- Yellow CLARITY Clear SPEC GRAV 1.016 pH 6.5 PROTEIN 200 GLUCOSE 50 KETONE Negative BILIRUBIN Negative BLOOD Negative NITRITE Negative LEUK SCREEN Negative Micro Indicated? MICRO IND RBC/HPF 0-3 WBC/HPF 0-5 BACTERIA/HPF None Seen SQUAMOUS EPI/LPF Few HGB A1C 7.70 %Est Avg Glucose 174.3 CREAT UR 81.2 MICROALBUMIN UR 218.5 ALB:CREAT RATIO 2691 03/19/2019 11:49 AM INR 1.80 secs 04/17/2019 4:32 PM INR 1.60 secs 07/17/2019 11:30 AM INR 1.50 secsHGB A1C 7.50 %E st Avg Glucose 168.6 GLUCOSE 202 SODIUM 141 POTASSIUM 5.0 CHLORIDE 102.0 mmol/LCO2 28 BUN 33.0 mg/dLCREATININE 1.630 mg/dLSGOT/AST 22 SGPT/ALT 19 ALK PHOS 89 TOTAL PROTEIN 7.4 ALBUMIN 4.2 TOTAL BILI 0.6 CALCIUM 9.90 mg/dLAGE 83 GFR NonAA 30 GFR AA 36 eGFR 30 mL/min/1.73meGFR AA* 36 mL/min/1.73mWBC 6.1 RBC 4.81 HGB 13.40 g/dLHCT 43.20 %MCV 90.0 fLMCH 27.90 pgMCHC 31.0 g/dLRDW SD 46 fLRDW CV 14.10 %MPV 11.60 fLPLT 207 x10E3/uLNRBC# 0.00 NRBC% 0.0 %NEUT 74.0 %LYMP 10.9 %MONO 10.1 %EOS 3.4 %BASO 1.1 #NEUT 4.52 #LYMP 0.67 #MONO 0.62 #EOS 0.21 #BASO 0.07 MANUAL DIFF NOT IND 08/06/2019 2:00 PM INR 2.10 secs 08/20/2019 11:44 AM PROTIME 25.60 secsINR 2.10 s ecs 09/02/2019 1:00 PM INR 2.10 secs 09/29/2019 1:55 PM INR 2.50 secs 10/13/2019 11:10 AM WBC 6.9 RBC 4.07 HGB 11.50 g /dLHCT 37.0 %MCV 91.0 fLMCH 28.30 pgMCHC 31.10 g/dLRDW SD 48 fLRDW CV 14.20 %MPV 11.40 fLPLT 235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
--- OUTSIDE RECORDS SUMMARY | 2020-10-29 14:21 | XMS REPORT | Clinical Summary ---
Author Author [facility] Organization [facility] Address Unknown Phone Unavailable Care Team Providers Care Captain Waiter/Waitress Name Role Phone Unknown, Unknown Md PCP Unavailable Aarti Mars PA-C Unavailable Unavailable Source Comments Some departments are not documenting in the electronic medical record. If you d o not see the information that you expected, contact Release of Information in [facility] Health Information Management department at [phone] for further assistan ce in locating additional records.[facility] Allergies Not on File Medications Not on file Active Problems Not on file Social History Date Tobacco Use Types Packs/Day Years Used Never Assessed Sex Assigned at Date Recorded Not on file Last Filed Vital Signs Not on file Plan of Treatment Health Maintenance Due Date Last Done Comments MEDICARE ANNUAL WELLNESS 1935 VISIT DTAP/TDAP VACCINES (1 - 11/08/1953 Tdap) PHYSICAL (COMPREHENSIVE) 11/08/1953 EXAM SHINGLES RECOMBINANT 11/08/1985 VACCINE (1 of 2) OSTEOPOROSIS 11/08/2000 SCREENING/MONITORING PNEUMONIA (PPSV23) 11/08/2000 VACCINE (1 of 1 - PPSV23) INFLUENZA VACCINE 10/11/2019 Results Not on filefrom Last 3 Months Insurance Type Payer Benefit Subscriber ID Effective Phone Address Plan / Dates Group Medicare MEDICARE MEDICARE [id number] PART A AND resent B Indemnity GENERIC COMMERCIAL GENERIC [id number] 2013 COMMERCIAL -Present 1950 [address] [place] (Home) [place] [phone] 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
--- OUTSIDE RECORDS SUMMARY | 2020-10-29 14:22 | XMS REPORT ---
Author Author Ann Meade Organization [facility] Address [address] [place], [place] [id number] Care Team Providers Care Manager Human Capital Name Role Phone Jazmine Meade PCP Unavailable Jazmine Meade PreferredProvider Unavailable Allergies and Adverse Reactions Name Reaction Notes aspirin Atenolol Buprenex buspirone captopril furosemide Guaifenesin hydrochlorothiazide lisinopril morphine nitrofurantoin PENICILLINS terazosin celery [place] Pollen [place] Hydrocodone Compound codeine sulfate gabapentin dizzy Plan [...] HC BMI BSA BMI Percentile O2 Sat(%) 10/13/2020 11:07:00 AM 180 mm[Hg] 72 mm[Hg] [...] AM PROTHROMBIN TIME Reviewed 12/22/2019 12:00 AM [facility] MEDICARE - flu vaccine administratio n Reviewed [...] PM INR 2.10 secs 03/03/2020 1:31 PM [id number] NOT DETECTED 03/15/2020 3:32 PM INR 2.20 [...] PM INR 1.80 secs 05/27/2020 12:30 PM [id number] DETECTED 05/31/2020 11:28 AM INR 4.50 secs [...] g /dLHCT 40.60 %MCV 89.0 fLMCH 27.30 pgMCHC 30.50 g/dLRDW SD 48 %RDW CV 15.0 [...] HGB 11.60 g /dLHCT 37.10 %MCV 87.0 fLMCH 27.20 pgMCHC 31.30 g/dLRDW SD 48 %RDW CV 14.80 [...] Influenza 12/24/2018 sanofi pasteur PMC FLUZONE-HIGH DOSE [id number] In tramuscular Left Deltoid 12/24/2018 03/12/2021 135 Influenza 12/22/2019 sanofi pasteur PMC FLUZONE-HIGH DOSE [id number] In tramuscular Right Deltoid 12/22/2019 10/24/2018 135 Tdap 03/22/2020 VEASYT SKB BOOSTRIX [id number] Intramuscular Left Deltoid 03/22/2020 06/11/2019 115 History of Past Illness Name Date of Onset Comments Type 2 diabetes mellitus Hypertension Heart Attack Kidney Stones Type 2 diabetes mellitus Feb 28 2018 [...] 9:06AM Atrial Fibrillation Mar 15 2018 8:43AM [facility] 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 Mar 15 2018 8:43AM Atrial Fibrillation Mar 22 2018 9:42AM [facility]FP 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 Mar 22 2018 9:42AM Epigastric pain Mar 25 2018 11:43AM Abdominal pain Mar 25 2018 11:05AM Atrial fibrillation, on long-term anticoagulation Mar 25 201 9 11:05AM INR (international normal ratio) abnormal, subtherapeutic Ja 2018 11:05AM Abdominal pain, improved Apr 01 2018 1:45PM Atrial Fibrillation Apr 01 2018 2:31PM 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 Apr 01 2018 2:31PM [...] 2:03PM Atrial Fibrillation Jul 16 2018 2:56PM 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 Jul 16 2018 2:56PM Atrial fibrillation Jul 24 2018 10:52AM Abdominal pain Jul 24 2018 10:52AM Abdominal pain Jul 24 2018 10:35AM Atrial fibrillation Jul 24 2018 10:35AM Abdominal pain Jul 24 2018 11:12AM Atrial Fibrillation Aug 07 2018 1:38PM [facility] 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 Aug 07 2018 1:38PM [facility] 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 Aug 21 2018 11:01AM Diabetes mellitus, type II Aug 21 2018 11:03AM Hypertension Aug 21 2018 10:26AM Type 2 diabetes mellitus Aug 21 2018 10:26AM Situational stress Aug 21 2018 10:26AM Atrial fibrillation Aug 21 2018 10:26AM 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 Sep 04 2018 9:37AM 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 Sep 18 2018 10:08AM [...] 10:38AM Atrial Fibrillation Oct 23 2018 11:16AM [facility] 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 Oct 23 2018 11:16AM Varicose vein of leg Nov 04 2018 11:04AM Skin avulsion Nov 04 2018 11:04AM Contact dermatitis Nov 04 2018 11:04AM Situational stress Nov 04 2018 11:04AM Diabetes mellitus, type II Nov 27 2018 10:58AM [facility] (current) 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 Nov 27 2018 [...] 1:45PM Atrial Fibrillation Dec 24 2018 1:46PM [facility] 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 Dec 24 2018 1:46PM Flu Vaccine Dec 24 2018 3:08PM Breast cancer screening by mammogram Mar 19 2019 10:46AM Hypertension Mar 19 2019 11:46AM T2DM (type 2 diabetes mellitus) Mar 19 2019 11:46AM Atrial Fibrillation Mar 19 2019 11:49AM [facility] 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 Mar 19 2019 11:49AM Type 2 diabetes mellitus Mar 19 2019 11:27AM Hypertension Mar 19 2019 11:27AM Atrial fibrillation Mar 19 2019 11:27AM Atrial Fibrillation Apr 17 2019 4:32PM 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 Apr 17 2019 4:32PM Atrial fibrillation Jul 17 2019 11:21AM Hypertension Jul 17 2019 11:21AM Diabetes mellitus, type II Jul 17 2019 11:21AM Atrial Fibrillation Jul 17 2019 11:30AM 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 Jul 17 2019 11:30AM Hypertension Jul 17 2019 10:42AM Atrial fibrillation Jul 17 2019 10:42AM Type 2 diabetes mellitus Jul 17 2019 10:42AM Type 2 diabetes mellitus Aug 06 2019 1:36PM Hypertension Aug 06 2019 1:36PM Atrial fibrillation Aug 06 2019 1:36PM Atrial Fibrillation Aug 06 2019 2:00PM 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 Aug 06 2019 2:00PM Atrial Fibrillation Aug 20 2019 11:44AM 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 Aug 20 2019 11:44AM Hypertension Aug 21 2019 11:40AM CAD (coronary artery disease) Aug 21 2019 11:40AM Atrial fibrillation Aug 21 2019 11:40AM 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 Sep 02 2019 1:00PM Bitten or stung by nonvenomous insect an d other nonvenomous arthropods, initial encounter Sep 02 2019 1:00PM Capillary hemangioma Sep 02 2019 11:39AM Skin ulceration Sep 02 2019 11:39AM Hypertension, Benign Essential Sep 22 2019 4:00PM Atrial Fibrillation Sep 29 2019 1:55PM 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 Sep 29 2019 1:55PM Right leg ulcer Sep 29 2019 1:46PM Atrial fibrillation Sep 29 2019 1:46PM Edema Oct 13 2019 10:50AM UTI (urinary tract infection) Oct 13 2019 10:50AM Atrial Fibrillation Oct 13 2019 10:50AM 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 Oct 13 2019 10:50AM UTI (urinary tract infection) Oct 13 2019 10:15AM Diverticulitis Oct 13 2019 10:15AM Atrial fibrillation Oct 13 2019 10:15AM Renal insufficiency Oct 13 2019 10:15AM Fatigue Oct 13 2019 10:15AM Right Leg ulcer Oct 13 2019 10:15AM Atrial Fibrillation Oct 16 2019 2:47PM 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 Oct 16 2019 2:47PM Atrial Fibrillation Oct 22 2019 4:29PM 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 Oct 22 2019 4:29PM Atrial Fibrillation Oct 30 2019 10:29AM [facility]FP 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 Oct 30 2019 10:29AM Atrial Fibrillation Nov 06 2019 3:05PM 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 Nov 06 2019 3:05PM Nonhealing skin ulcer Nov 11 2019 2:03PM Atrial Fibrillation Nov 11 2019 2:39PM 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 Nov 11 2019 2:39PM Non-healing wound of right lower extremity Nov 12 2019 4:22 PM Atrial Fibrillation Nov 25 2019 4:03PM 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 Nov 25 2019 4:03PM Atrial Fibrillation Dec 09 2019 1:41PM [facility] 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 Dec 09 2019 1:41PM Atrial Fibrillation Dec 22 2019 10:47AM 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 Dec 22 2019 10:47AM Flu Vaccine Dec 22 2019 10:54AM Atrial Fibrillation Jan 07 2020 1:00PM 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 Jan 07 2020 1:00PM Atrial Fibrillation Jan 20 2020 11:44AM 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 Jan 20 2020 11:44AM Atrial Fibrillation Feb 10 2020 11:51AM 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 Feb 10 2020 11:51AM COPD (chronic obstructive pulmonary disease) Feb 23 2020 4: 04PM Atrial fibrillation Feb 23 2020 4:04PM Leg wound, right Feb 23 2020 4:04PM Atrial Fibrillation Feb 24 2020 5:38PM [facility] 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 Feb 24 2020 5:38PM Encounter for laboratory testing for COVID-19 virus Mar 03 1:18PM Close exposure to severe acute respiratory syndrome co ronavirus 2 (SARS-CoV-2) Mar 03 2020 1:18PM Cough Mar 03 2020 1:18PM Congestion of nasal sinus Mar 03 2020 1:18PM Atrial Fibrillation Mar 15 2020 3:32PM [facility] 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 Mar 15 2020 3:32PM [...] 1:45PM Atrial Fibrillation Apr 22 2020 12:17PM [facility] 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 Apr 22 2020 12:17PM Atrial Fibrillation May 04 2020 2:26PM [facility] 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 May 04 2020 2:26PM Diabetes mellitus, type II May 04 2020 3:15PM Dysuria May 04 2020 3:15PM Type 2 diabetes mellitus b 2020 1:26PM Dysuria May 04 2020 1:26PM Atrial fibrillation May 04 2020 1:26PM Encounter for laboratory testing for COVID-19 virus May 27 4:54PM Cough May 27 2020 4:54PM Atrial Fibrillation May 31 2020 11:28AM 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 May 31 2020 11:28AM Follow up Jun 21 2020 2:09PM Diabetes mellitus, type II Jun 21 2020 4:36PM Fatigue Jun 21 2020 4:36PM COVID-19 Jun 21 2020 4:36PM Atrial Fibrillation Jun 22 2020 11:34AM [facility] 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 Jun 22 2020 11:34AM [...] 2:08PM Atrial Fibrillation Aug 25 2020 2:15PM 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 Aug 25 2020 2:15PM Rash Aug 25 2020 1:24PM Atrial fibrillation Aug 25 2020 1:24PM Anemia Aug 25 2020 1:24PM Rash Aug 30 2020 3:03PM Hyperkalemia Aug 31 2020 2:03PM Squamous cell carcinoma of scalp Sep 07 2020 3:32PM Atrial fibrillation Sep 10 2020 8:48AM [facility] current use of anticoagulant Sep 10 2020 8:48AM Cellulitis, right foot Sep 16 2020 12:50PM Toe ulcer Sep 16 2020 12:50PM Type 2 diabetes mellitus Sep 16 2020 12:50PM CKD (chronic kidney disease), stage III Sep 16 2020 12:50PM Right second toe ulcer Sep 16 2020 2:19PM Atrial fibrillation Sep 20 2020 4:33PM 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 Sep 20 2020 [...] 11:10AM Ischemic ulcer Oct 13 2020 11:47AM Payers Insurance Name Company Name Plan Name Plan Number Policy Number [employer] Group Number Start Date Medicare [facility] Medicare RHC [id number] N/ A [employer] Insurance [employer] Ins Compan [id number] N/A Medicare Part B Medicare Of [place] [id number] N/A Medicare Part A Medicare - Lab/Xray [id number] N/A Albanian Family Albanian Family Auto [id number] N/A Albanian Family Albanian Family [id number] N/A [employer] Insurance [employer] [facility] [id number] N/A History of Encounters Visit Date Visit Type Provider 10/13/2020 Office visit Jazmine Meade MD 10/04/2020 Office visit Jazmine Meade MD 09/27/2020 Office visit Jazmine Meade MD 09/21/2020 Laboratory Chaz Damon RODEO PERFORMER 09/20/2020 Office visit Jazmine Meade MD 09/16/2020 [...] Jazmine Meade MD 04/21/2020 Nurse visit David Amado PRN 04/05/2020 Office visit Jazmine Meade MD 03/29/2020 Office visit Jazmine Meade MD 03/22/2020 Office visit Jazmine Meade MD 03/15/2020 Nurse visit Jazmine Meade MD 03/02/2020 Office visit Chaz Damon RODEO PERFORMER 02/23/2020 Office visit Jazmine Meade MD 02/10/2020 Laboratory Jazmine Meade MD 01/20/2020 Laboratory Jazmine Meade MD 01/07/2020 Laboratory Jazmine Meade MD 12/22/2019 Laboratory Jazmine Meade MD 12/09/2019 Laboratory Jazmine Meade MD 11/25/2019 Laboratory Jazmine Meade MD 11/11/2019 Office visit Jazmine Meade MD 11/06/2019 Nurse visit Jazmine Meade MD 10/30/2019 Laboratory Jazmine Meade MD 10/22/2019 Laboratory David Peterson A PRN 10/16/2019 Laboratory David Peterson A PRN 10/13/2019 Office visit Jazmine Meade MD 09/29/2019 Office visit Jazmine Meade MD 09/22/2019 Nurse visit David Peterson A PRN 09/02/2019 Office visit Jazmine Meade [...] Jazmine Meade MD 03/22/2018 Laboratory Chaz Damon RODEO PERFORMER 03/15/2018 Laboratory Chaz Damon RODEO PERFORMER 03/13/2018 Office visit Jazmine Meade MD 03/08/2018 Laboratory Chaz Damon RODEO PERFORMER 03/07/2018 Voided Jazmine Meade MD 02/28/2018 Office visit Jazmine Meade MD
--- OUTSIDE RECORDS SUMMARY | 2020-10-29 14:22 | XMS REPORT ---
Author Author Ann Meade Organization [facility] Address [address] [place], [place] [id number] Care Team Providers Care Federal District Clerk Name Role Phone Jazmine Meade PCP Unavailable Jazmine Meade PreferredProvider Unavailable Allergies and Adverse Reactions Name Reaction Notes aspirin Atenolol Buprenex buspirone captopril furosemide Guaifenesin hydrochlorothiazide lisinopril morphine nitrofurantoin PENICILLINS terazosin celery Randall Pollen [place] Hydrocodone Compound codeine sulfate gabapentin dizzy Plan [...] AM PROTHROMBIN TIME Reviewed 12/22/2019 12:00 AM [facility] - flu vaccine administratio n Reviewed [...] PM INR 2.10 secs 03/03/2020 1:31 PM [id number] NOT DETECTED 03/15/2020 3:32 PM INR 2.20 [...] PM INR 1.80 secs 05/27/2020 12:30 PM [id number] DETECTED 05/31/2020 11:28 AM INR 4.50 secs [...] Influenza 12/24/2018 sanofi pasteur PMC FLUZONE-HIGH DOSE [id number] In tramuscular Left Deltoid 12/24/2018 03/12/2021 135 Influenza 12/22/2019 [facility] PMC FLUZONE-HIGH DOSE [id number] In tramuscular Right Deltoid 12/22/2019 10/24/2018 135 Tdap 03/22/2020 [employer] SKB BOOSTRIX [id number] Intramuscular Left Deltoid 03/22/2020 06/11/2019 115 History of Past Illness Name Date of Onset Comments Type 2 diabetes mellitus Hypertension Heart Attack Kidney Stones PVD (peripheral vascular disease) Atrial Fibrillation Type 2 diabetes mellitus Feb 28 2018 [...] 9:06AM Atrial Fibrillation Mar 15 2018 8:43AM [facility] 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 Mar 15 2018 8:43AM Atrial Fibrillation Mar 22 2018 9:42AM [facility] 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 Mar 22 2018 9:42AM Epigastric pain Mar 25 2018 11:43AM Abdominal pain Mar 25 2018 11:05AM Atrial fibrillation, on long-term anticoagulation Mar 25 201 9 11:05AM INR (international normal ratio) abnormal, subtherapeutic Ja 2018 11:05AM Abdominal pain, improved Apr 01 2018 1:45PM Atrial Fibrillation Apr 01 2018 2:31PM [facility] 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 Apr 01 2018 2:31PM [...] 2:03PM Atrial Fibrillation Jul 16 2018 2:56PM [facility] 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 Jul 16 2018 2:56PM Atrial fibrillation Jul 24 2018 10:52AM Abdominal pain Jul 24 2018 10:52AM Abdominal pain Jul 24 2018 10:35AM Atrial fibrillation Jul 24 2018 10:35AM Abdominal pain Jul 24 2018 11:12AM Atrial Fibrillation Aug 07 2018 1:38PM [facility] 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 Aug 07 2018 1:38PM 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 Aug 21 2018 11:01AM Diabetes mellitus, type II Aug 21 2018 11:03AM Hypertension Aug 21 2018 10:26AM Type 2 diabetes mellitus Aug 21 2018 10:26AM Situational stress Aug 21 2018 10:26AM Atrial fibrillation Aug 21 2018 10:26AM 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 Sep 04 2018 9:37AM [facility] 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 Sep 18 2018 10:08AM [...] 10:38AM Atrial Fibrillation Oct 23 2018 11:16AM [facility] 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 Oct 23 2018 11:16AM Varicose vein of leg Nov 04 2018 11:04AM Skin avulsion Nov 04 2018 11:04AM Contact dermatitis Nov 04 2018 11:04AM Situational stress Nov 04 2018 11:04AM Diabetes mellitus, type II Nov 27 2018 10:58AM [facility] (current) 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 Nov 27 2018 [...] 1:45PM Atrial Fibrillation Dec 24 2018 1:46PM 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 Dec 24 2018 1:46PM Flu Vaccine Dec 24 2018 3:08PM Breast cancer screening by mammogram Mar 19 2019 10:46AM Hypertension Mar 19 2019 11:46AM T2DM (type 2 diabetes mellitus) Mar 19 2019 11:46AM Atrial Fibrillation Mar 19 2019 11:49AM [facility] 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 Mar 19 2019 11:49AM Type 2 diabetes mellitus Mar 19 2019 11:27AM Hypertension Mar 19 2019 11:27AM Atrial fibrillation Mar 19 2019 11:27AM Atrial Fibrillation Apr 17 2019 4:32PM 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 Apr 17 2019 4:32PM Atrial fibrillation Jul 17 2019 11:21AM Hypertension Jul 17 2019 11:21AM Diabetes mellitus, type II Jul 17 2019 11:21AM Atrial Fibrillation Jul 17 2019 11:30AM [facility] 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 Jul 17 2019 11:30AM Hypertension Jul 17 2019 10:42AM Atrial fibrillation Jul 17 2019 10:42AM Type 2 diabetes mellitus Jul 17 2019 10:42AM Type 2 diabetes mellitus Aug 06 2019 1:36PM Hypertension Aug 06 2019 1:36PM Atrial fibrillation Aug 06 2019 1:36PM Atrial Fibrillation Aug 06 2019 2:00PM 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 Aug 06 2019 2:00PM Atrial Fibrillation Aug 20 2019 11:44AM [facility] 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 Aug 20 2019 11:44AM Hypertension Aug 21 2019 11:40AM CAD (coronary artery disease) Aug 21 2019 11:40AM Atrial fibrillation Aug 21 2019 11:40AM 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 Sep 02 2019 1:00PM Bitten or stung by nonvenomous insect an d other nonvenomous arthropods, initial encounter Sep 02 2019 1:00PM Capillary hemangioma Sep 02 2019 11:39AM Skin ulceration Sep 02 2019 11:39AM Hypertension, Benign Essential Sep 22 2019 4:00PM Atrial Fibrillation Sep 29 2019 1:55PM [facility] 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 Sep 29 2019 1:55PM Right leg ulcer Sep 29 2019 1:46PM Atrial fibrillation Sep 29 2019 1:46PM Edema Oct 13 2019 10:50AM UTI (urinary tract infection) Oct 13 2019 10:50AM Atrial Fibrillation Oct 13 2019 10:50AM [facility] 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 Oct 13 2019 10:50AM UTI (urinary tract infection) Oct 13 2019 10:15AM Diverticulitis Oct 13 2019 10:15AM Atrial fibrillation Oct 13 2019 10:15AM Renal insufficiency Oct 13 2019 10:15AM Fatigue Oct 13 2019 10:15AM Right Leg ulcer Oct 13 2019 10:15AM Atrial Fibrillation Oct 16 2019 2:47PM 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 Oct 16 2019 2:47PM Atrial Fibrillation Oct 22 2019 4:29PM [facility] 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 Oct 22 2019 4:29PM Atrial Fibrillation Oct 30 2019 10:29AM [facility] 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 Oct 30 2019 10:29AM Atrial Fibrillation Nov 06 2019 3:05PM 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 Nov 06 2019 3:05PM Nonhealing skin ulcer Nov 11 2019 2:03PM Atrial Fibrillation Nov 11 2019 2:39PM [facility] 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 Nov 11 2019 2:39PM Non-healing wound of right lower extremity Nov 12 2019 4:22 PM Atrial Fibrillation Nov 25 2019 4:03PM [facility] 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 Nov 25 2019 4:03PM Atrial Fibrillation Dec 09 2019 1:41PM 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 Dec 09 2019 1:41PM Atrial Fibrillation Dec 22 2019 10:47AM 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 Dec 22 2019 10:47AM Flu Vaccine Dec 22 2019 10:54AM Atrial Fibrillation Jan 07 2020 1:00PM [facility] 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 Jan 07 2020 1:00PM Atrial Fibrillation Jan 20 2020 11:44AM [facility] 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 Jan 20 2020 11:44AM Atrial Fibrillation Feb 10 2020 11:51AM 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 Feb 10 2020 11:51AM COPD (chronic obstructive pulmonary disease) Feb 23 2020 4: 04PM Atrial fibrillation Feb 23 2020 4:04PM Leg wound, right Feb 23 2020 4:04PM Atrial Fibrillation Feb 24 2020 5:38PM 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 Feb 24 2020 5:38PM Encounter for laboratory testing for COVID-19 virus Mar 03 1:18PM Close exposure to severe acute respiratory syndrome co ronavirus 2 (SARS-CoV-2) Mar 03 2020 1:18PM Cough Mar 03 2020 1:18PM Congestion of nasal sinus Mar 03 2020 1:18PM Atrial Fibrillation Mar 15 2020 3:32PM 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 Mar 15 2020 3:32PM [...] 1:45PM Atrial Fibrillation Apr 22 2020 12:17PM 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 Apr 22 2020 12:17PM Atrial Fibrillation May 04 2020 2:26PM [facility] 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 May 04 2020 2:26PM Diabetes mellitus, type II May 04 2020 3:15PM Dysuria May 04 2020 3:15PM Type 2 diabetes mellitus May 04 2020 1:26PM Dysuria May 04 2020 1:26PM Atrial fibrillation May 04 2020 1:26PM Encounter for laboratory testing for COVID-19 virus May 27 4:54PM Cough May 27 2020 4:54PM Atrial Fibrillation May 31 2020 11:28AM 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 May 31 2020 11:28AM Follow up Jun 21 2020 2:09PM Diabetes mellitus, type II Jun 21 2020 4:36PM Fatigue Jun 21 2020 4:36PM COVID-19 Jun 21 2020 4:36PM Atrial Fibrillation Jun 22 2020 11:34AM 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 Jun 22 2020 11:34AM [...] 2:08PM Atrial Fibrillation Aug 25 2020 2:15PM 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 Aug 25 2020 2:15PM Rash Aug 25 2020 1:24PM Atrial fibrillation Aug 25 2020 1:24PM Anemia Aug 25 2020 1:24PM Rash Aug 30 2020 3:03PM Hyperkalemia Aug 31 2020 2:03PM Squamous cell carcinoma of scalp Sep 07 2020 3:32PM Atrial fibrillation Sep 10 2020 8:48AM [facility] current use of anticoagulant Sep 10 2020 8:48AM Cellulitis, right foot Sep 16 2020 12:50PM Toe ulcer Sep 16 2020 12:50PM Type 2 diabetes mellitus Sep 16 2020 12:50PM CKD (chronic kidney disease), stage III Sep 16 2020 12:50PM Right second toe ulcer Sep 16 2020 2:19PM Atrial fibrillation Sep 20 2020 4:33PM 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 Sep 20 2020 [...] pulmonary disease) Oct 26 2020 11: 30AM Payers Insurance Name Company Name Plan Name Plan Number Policy Number [employer] Group Number Start Date Medicare RHC Medicare RHC [id number] N/ A [employer] Insurance [employer] Ins Compan [id number] N/A Medicare Part B Medicare Of [place] [id number] N/A Medicare Part A Medicare - Lab/Xray [id number] N/A Sammarinese Family Sammarinese Family Auto [id number] N/A Sammarinese Family Sammarinese Family [id number] N/A [employer] Insurance [employer] Ins [id number] N/A History of Encounters Visit Date Visit Type Provider 10/26/2020 Office visit Jazmine Meade MD 10/13/2020 Office visit Jazmine Meade MD 10/04/2020 Office visit Jazmine Meade MD 09/27/2020 Office visit Jazmine Meade MD 09/21/2020 Laboratory Chaz Damon APRN 09/20/2020 Office visit Jazmine Meade MD 09/16/2020 [...] Meade MD 03/02/2020 Office visit Chaz Damon GAS PIT WORKER 02/23/2020 Office visit Jazmine Meade MD 02/10/2020 [...] visit Jazmine Meade MD 09/22/2019 Nurse visit Jilljase L. Frazell A PRN 09/02/2019 Office visit [...] visit Ronnell Rizo NP 04/16/2018 Office visit Jzamine Meade MD 04/01/2018 Office visit Jazmine Meade MD 03/25/2018 Office visit Jazmine Meade MD 03/22/2018 Laboratory Chaz Damon GAS PIT WORKER 03/15/2018 Laboratory Chaz Damon APRN 03/13/2018 Office visit Jazmine Meade MD 03/08/2018 Laboratory Chaz Damon APRN 03/07/2018 Voided Jazmine Meade MD 02/28/2018 Office visit Jazmine Meade MD
--- OUTSIDE RECORDS SUMMARY | 2020-10-29 14:22 | XMS REPORT ---
Author Author Ann Meade Organization [facility] Address [address] [place], [place] [id number] Care Team Providers Care Journeyman Painter Name Role Phone Jazmine Meade PCP Unavailable Jazmine Meade PreferredProvider Unavailable Allergies and Adverse Reactions Name Reaction Notes aspirin Atenolol Buprenex buspirone captopril furosemide Guaifenesin hydrochlorothiazide lisinopril morphine nitrofurantoin PENICILLINS terazosin celery [place] Pollen [place] Hydrocodone Compound codeine sulfate gabapentin dizzy Plan [...] PM INR 2.10 secs 03/03/2020 1:31 PM [id number] NOT DETECTED 03/15/2020 3:32 PM INR 2.20 [...] PM INR 1.80 secs 05/27/2020 12:30 PM [id number] DETECTED 05/31/2020 11:28 AM INR 4.50 secs [...] Influenza 12/24/2018 sanofi pasteur PMC FLUZONE-HIGH DOSE [id number] In tramuscular Left Deltoid 12/24/2018 03/12/2021 135 Influenza 12/22/2019 sanofi pasteur PMC FLUZONE-HIGH DOSE [id number] In tramuscular Right Deltoid 12/22/2019 10/24/2018 135 Tdap 03/22/2020 Remotium SKB BOOSTRIX [id number] Intramuscular Left Deltoid 03/22/2020 [...] 9:06AM Atrial Fibrillation Mar 15 2018 8:43AM longterm 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 Mar 15 2018 8:43AM Atrial Fibrillation Mar 22 2018 9:42AM longterm 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 Mar 22 2018 9:42AM Epigastric pain Mar 25 2018 11:43AM Abdominal pain Mar 25 2018 11:05AM Atrial fibrillation, on long-term anticoagulation Mar 25 201 9 11:05AM INR (international normal ratio) abnormal, subtherapeutic Ja 2018 11:05AM Abdominal pain, improved Apr 01 2018 1:45PM Atrial Fibrillation Apr 01 2018 2:31PM ferry terminal agent 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 Apr 01 2018 2:31PM [...] 2:03PM Atrial Fibrillation Jul 16 2018 2:56PM ferry terminal agent 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 Jul 16 2018 2:56PM Atrial fibrillation Jul 24 2018 10:52AM Abdominal pain Jul 24 2018 10:52AM Abdominal pain Jul 24 2018 10:35AM Atrial fibrillation Jul 24 2018 10:35AM Abdominal pain Jul 24 2018 11:12AM Atrial Fibrillation Aug 07 2018 1:38PM longterm 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 Aug 07 2018 1:38PM longterm 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 Aug 21 2018 11:01AM Diabetes mellitus, type II Aug 21 2018 11:03AM Hypertension Aug 21 2018 10:26AM Type 2 diabetes mellitus Aug 21 2018 10:26AM Situational stress Aug 21 2018 10:26AM Atrial fibrillation Aug 21 2018 10:26AM ferry terminal agent 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 Sep 04 2018 9:37AM ferry terminal agent 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 Sep 18 2018 10:08AM [...] 10:38AM Atrial Fibrillation Oct 23 2018 11:16AM longterm 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 Oct 23 2018 11:16AM Varicose vein of leg Nov 04 2018 11:04AM Skin avulsion Nov 04 2018 11:04AM Contact dermatitis Nov 04 2018 11:04AM Situational stress Nov 04 2018 11:04AM Diabetes mellitus, type II Nov 27 2018 10:58AM longterm (current) 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 Nov 27 2018 [...] 1:45PM Atrial Fibrillation Dec 24 2018 1:46PM longterm 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 Dec 24 2018 1:46PM Flu Vaccine Dec 24 2018 3:08PM Breast cancer screening by mammogram Mar 19 2019 10:46AM Hypertension Mar 19 2019 11:46AM T2DM (type 2 diabetes mellitus) Mar 19 2019 11:46AM Atrial Fibrillation Mar 19 2019 11:49AM longterm 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 Mar 19 2019 11:49AM Type 2 diabetes mellitus Mar 19 2019 11:27AM Hypertension Mar 19 2019 11:27AM Atrial fibrillation Mar 19 2019 11:27AM Atrial Fibrillation Apr 17 2019 4:32PM ferry terminal agent 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 Apr 17 2019 4:32PM Atrial fibrillation Jul 17 2019 11:21AM Hypertension Jul 17 2019 11:21AM Diabetes mellitus, type II Jul 17 2019 11:21AM Atrial Fibrillation Jul 17 2019 11:30AM ferry terminal agent 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 Jul 17 2019 11:30AM Hypertension Jul 17 2019 10:42AM Atrial fibrillation Jul 17 2019 10:42AM Type 2 diabetes mellitus Jul 17 2019 10:42AM Type 2 diabetes mellitus Aug 06 2019 1:36PM Hypertension Aug 06 2019 1:36PM Atrial fibrillation Aug 06 2019 1:36PM Atrial Fibrillation Aug 06 2019 2:00PM ferry terminal agent 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 Aug 06 2019 2:00PM Atrial Fibrillation Aug 20 2019 11:44AM ferry terminal agent 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 Aug 20 2019 11:44AM Hypertension Aug 21 2019 11:40AM CAD (coronary artery disease) Aug 21 2019 11:40AM Atrial fibrillation Aug 21 2019 11:40AM ferry terminal agent 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 Sep 02 2019 1:00PM Bitten or stung by nonvenomous insect an d other nonvenomous arthropods, initial encounter Sep 02 2019 1:00PM Capillary hemangioma Sep 02 2019 11:39AM Skin ulceration Sep 02 2019 11:39AM Hypertension, Benign Essential Sep 22 2019 4:00PM Atrial Fibrillation Sep 29 2019 1:55PM ferry terminal agent 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 Sep 29 2019 1:55PM Right leg ulcer Sep 29 2019 1:46PM Atrial fibrillation Sep 29 2019 1:46PM Edema Oct 13 2019 10:50AM UTI (urinary tract infection) Oct 13 2019 10:50AM Atrial Fibrillation Oct 13 2019 10:50AM ferry terminal agent 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 Oct 13 2019 10:50AM UTI (urinary tract infection) Oct 13 2019 10:15AM Diverticulitis Oct 13 2019 10:15AM Atrial fibrillation Oct 13 2019 10:15AM Renal insufficiency Oct 13 2019 10:15AM Fatigue Oct 13 2019 10:15AM Right Leg ulcer Oct 13 2019 10:15AM Atrial Fibrillation Oct 16 2019 2:47PM ferry terminal agent 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 Oct 16 2019 2:47PM Atrial Fibrillation Oct 22 2019 4:29PM ferry terminal agent 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 Oct 22 2019 4:29PM Atrial Fibrillation Oct 30 2019 10:29AM longterm 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 Oct 30 2019 10:29AM Atrial Fibrillation Nov 06 2019 3:05PM ferry terminal agent 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 Nov 06 2019 3:05PM Nonhealing skin ulcer Nov 11 2019 2:03PM Atrial Fibrillation Nov 11 2019 2:39PM ferry terminal agent 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 Nov 11 2019 2:39PM Non-healing wound of right lower extremity Nov 12 2019 4:22 PM Atrial Fibrillation Nov 25 2019 4:03PM ferry terminal agent 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 Nov 25 2019 4:03PM Atrial Fibrillation Dec 09 2019 1:41PM longterm 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 Dec 09 2019 1:41PM Atrial Fibrillation Dec 22 2019 10:47AM ferry terminal agent 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 Dec 22 2019 10:47AM Flu Vaccine Dec 22 2019 10:54AM Atrial Fibrillation Jan 07 2020 1:00PM ferry terminal agent 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 Jan 07 2020 1:00PM Atrial Fibrillation Jan 20 2020 11:44AM ferry terminal agent 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 Jan 20 2020 11:44AM Atrial Fibrillation Feb 10 2020 11:51AM ferry terminal agent 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 Feb 10 2020 11:51AM COPD (chronic obstructive pulmonary disease) Feb 23 2020 4: 04PM Atrial fibrillation Feb 23 2020 4:04PM Leg wound, right Feb 23 2020 4:04PM Atrial Fibrillation Feb 24 2020 5:38PM longterm 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 Feb 24 2020 5:38PM Encounter for laboratory testing for COVID-19 virus Mar 03 1:18PM Close exposure to severe acute respiratory syndrome co ronavirus 2 (SARS-CoV-2) Mar 03 2020 1:18PM Cough Mar 03 2020 1:18PM Congestion of nasal sinus Mar 03 2020 1:18PM Atrial Fibrillation Mar 15 2020 3:32PM longterm 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 Mar 15 2020 3:32PM [...] 1:45PM Atrial Fibrillation Apr 22 2020 12:17PM longterm 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 Apr 22 2020 12:17PM Atrial Fibrillation May 04 2020 2:26PM longterm 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 May 04 2020 2:26PM Diabetes mellitus, type II May 04 2020 3:15PM Dysuria May 04 2020 3:15PM Type 2 diabetes mellitus b 2020 1:26PM Dysuria May 04 2020 1:26PM Atrial fibrillation May 04 2020 1:26PM Encounter for laboratory testing for COVID-19 virus May 27 4:54PM Cough May 27 2020 4:54PM Atrial Fibrillation May 31 2020 11:28AM ferry terminal agent 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 May 31 2020 11:28AM Follow up Jun 21 2020 2:09PM Diabetes mellitus, type II Jun 21 2020 4:36PM Fatigue Jun 21 2020 4:36PM COVID-19 Jun 21 2020 4:36PM Atrial Fibrillation Jun 22 2020 11:34AM longterm 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 Jun 22 2020 11:34AM [...] 2:08PM Atrial Fibrillation Aug 25 2020 2:15PM ferry terminal agent 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 Aug 25 2020 2:15PM Rash Aug 25 2020 1:24PM Atrial fibrillation Aug 25 2020 1:24PM Anemia Aug 25 2020 1:24PM Rash Aug 30 2020 3:03PM Hyperkalemia Aug 31 2020 2:03PM Squamous cell carcinoma of scalp Sep 07 2020 3:32PM Atrial fibrillation Sep 10 2020 8:48AM longterm current use of anticoagulant Sep 10 2020 8:48AM Cellulitis, right foot Sep 16 2020 12:50PM Toe ulcer Sep 16 2020 12:50PM Type 2 diabetes mellitus Sep 16 2020 12:50PM CKD (chronic kidney disease), stage III Sep 16 2020 12:50PM Right second toe ulcer Sep 16 2020 2:19PM Atrial fibrillation Sep 20 2020 4:33PM ferry terminal agent current use of anticoagulant Sep 20 2020 [...] (peripheral vascular disease) Oct 13 2020 11:10AM Payers Insurance Name Company Name Plan Name Plan Number Policy Number [place] Group Number Start Date Medicare RHC Medicare RHC [id number] N/ A [employer] Ins Compan [id number] N/A Medicare Part B Medicare Of [place] [id number] N/A Medicare Part A Medicare - Lab/Xray [id number] N/A I[place]ian Family Ivorian Family Auto [id number] N/A Ivorian Family Ivorian Family [id number] N/A [employer] Insurance [facility] [id number] N/A History of Encounters Visit Date Visit [...] Meade MD 03/02/2020 Office visit Chaz Damon REFERRAL NURSE 02/23/2020 Office visit Jazmine Meade MD 02/10/2020 Laboratory Jazmine Meade MD 01/20/2020 Laboratory Jazmine Meade MD 01/07/2020 Laboratory Jazmine Meade MD 12/22/2019 Laboratory Jazmine Meade MD 12/09/2019 Laboratory Jamzine Meade MD 11/25/2019 Laboratory Jazmine Meade MD 11/11/2019 Office visit Jazmine Meade MD 11/06/2019 Nurse visit Jazmine Meade MD 10/30/2019 Laboratory Jazmine Meade MD 10/22/2019 Laboratory David Peterson A PRN 10/16/2019 Laboratory David Amado PRN 10/13/2019 Office visit Jazmine Meade MD [...] Jazmine Meade MD 03/22/2018 Laboratory Chaz Damon REFERRAL NURSE 03/15/2018 Laboratory Chaz Damon REFERRAL NURSE 03/13/2018 Office visit Jazmine Meade MD 03/08/2018 Laboratory Chaz Damon REFERRAL NURSE 03/07/2018 Voided Jazmine Meade MD 02/28/2018 Office visit Jazmine Meade MD
--- OUTSIDE RECORDS SUMMARY | 2020-10-29 14:23 | XMS REPORT ---
Author Ann Nevarez Organization [facility] Address [address] [place], [place] [address] Care Team Providers Care Tool Keeper Name Role Phone Jazmine Meade PCP Unavailable Jazmine Meade PreferredProvider Unavailable Allergies and Adverse Reactions Name Reaction Notes aspirin Atenolol Buprenex buspirone captopril furosemide Guaifenesin hydrochlorothiazide lisinopril morphine nitrofurantoin PENICILLINS terazosin celery [place] Pollen [place] Hydrocodone Compound codeine sulfate Plan of Treatment Planned Activity Comments Planned Date Planned Time Plan/Goal HGB A1C 12/05/2018 12:00 AM BMP 12/09/2018 [...] 1 and 1/2 TABLET BY MOUTH DIRECTED levofloxacin oral tablet 250 mg 09/20/2020 09/30/2020 take 1 tablet (250 mg) by oral route once daily for 10 days gabapentin 100 mg oral capsule 09/24/2020 t linda 1 capsule by oral route 3 times a day prn pain Name Start Date Expiration Date SIG Comments [...] topical route once daily for 14 days Discontinued Name Start Date Discontinued Date SIG Comments potassium chloride 10 mEq oral capsule, extended release 019 08/30/2020 take 1 capsule by oral route daily for 30 days potassium lab results high Cipro 500 mg oral tablet 09/29/2019 09/29/2019 take 1 tablet (500 mg) by oral route every 12 hours for 10 days Problem List Not available. Vital Signs Date Time BP-Sys(mm[Hg] BP-Shweta(mm[Hg]) HR(bpm) RR(rpm) Temp WT HT HC BMI BSA BMI Percentile O2 Sat(%) 09/27/2020 11:53:00 AM 160 mm[Hg] 64 mm[Hg] [...] PM INR 2.10 secs 03/03/2020 1:31 PM [id number] NOT DETECTED 03/15/2020 3:32 PM INR 2.20 [...] PM INR 1.80 secs 05/27/2020 12:30 PM [id number] DETECTED 05/31/2020 11:28 AM INR 4.50 secs [...] Influenza 12/24/2018 sanofi pasteur PMC FLUZONE-HIGH DOSE [id number] In tramuscular Left Deltoid 12/24/2018 03/12/2021 135 Influenza 12/22/2019 sanofi pasteur PMC FLUZONE-HIGH DOSE [id number] In tramuscular Right Deltoid 12/22/2019 10/24/2018 135 Tdap 03/22/2020 GlaxTer[employer] Radiosine SKB BOOSTRIX [id number] Intramuscular Left Deltoid 03/22/2020 [...] 9:06AM Atrial Fibrillation Mar 15 2018 8:43AM group home 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 Mar 15 2018 8:43AM Atrial Fibrillation Mar 22 2018 9:42AM 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 Mar 22 2018 9:42AM Epigastric pain Mar 25 2018 11:43AM Abdominal pain Mar 25 2018 11:05AM Atrial fibrillation, on long-term anticoagulation Mar 25 201 9 11:05AM INR (international normal ratio) abnormal, subtherapeutic Ja 2018 11:05AM Abdominal pain, improved Apr 01 2018 1:45PM Atrial Fibrillation Apr 01 2018 2:31PM 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 Apr 01 2018 2:31PM [...] 2:03PM Atrial Fibrillation Jul 16 2018 2:56PM group home 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 Jul 16 2018 2:56PM Atrial fibrillation Jul 24 2018 10:52AM Abdominal pain Jul 24 2018 10:52AM Abdominal pain Jul 24 2018 10:35AM Atrial fibrillation Jul 24 2018 10:35AM Abdominal pain Jul 24 2018 11:12AM Atrial Fibrillation Aug 07 2018 1:38PM group home 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 Aug 07 2018 1:38PM group home 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 Aug 21 2018 11:01AM Diabetes mellitus, type II Aug 21 2018 11:03AM Hypertension Aug 21 2018 10:26AM Type 2 diabetes mellitus Aug 21 2018 10:26AM Situational stress Aug 21 2018 10:26AM Atrial fibrillation Aug 21 2018 10:26AM 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 Sep 04 2018 9:37AM group home 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 Sep 18 2018 10:08AM [...] 10:38AM Atrial Fibrillation Oct 23 2018 11:16AM 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 Oct 23 2018 11:16AM Varicose vein of leg Nov 04 2018 11:04AM Skin avulsion Nov 04 2018 11:04AM Contact dermatitis Nov 04 2018 11:04AM Situational stress Nov 04 2018 11:04AM Diabetes mellitus, type II Nov 27 2018 10:58AM group home (current) 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 Nov 27 2018 [...] 1:45PM Atrial Fibrillation Dec 24 2018 1:46PM group home 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 Dec 24 2018 1:46PM Flu Vaccine Dec 24 2018 3:08PM Breast cancer screening by mammogram Mar 19 2019 10:46AM Hypertension Mar 19 2019 11:46AM T2DM (type 2 diabetes mellitus) Mar 19 2019 11:46AM Atrial Fibrillation Mar 19 2019 11:49AM 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 Mar 19 2019 11:49AM Type 2 diabetes mellitus Mar 19 2019 11:27AM Hypertension Mar 19 2019 11:27AM Atrial fibrillation Mar 19 2019 11:27AM Atrial Fibrillation Apr 17 2019 4:32PM group home 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 Apr 17 2019 4:32PM Atrial fibrillation Jul 17 2019 11:21AM Hypertension Jul 17 2019 11:21AM Diabetes mellitus, type II Jul 17 2019 11:21AM Atrial Fibrillation Jul 17 2019 11:30AM 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 Jul 17 2019 11:30AM Hypertension Jul 17 2019 10:42AM Atrial fibrillation Jul 17 2019 10:42AM Type 2 diabetes mellitus Jul 17 2019 10:42AM Type 2 diabetes mellitus Aug 06 2019 1:36PM Hypertension Aug 06 2019 1:36PM Atrial fibrillation Aug 06 2019 1:36PM Atrial Fibrillation Aug 06 2019 2:00PM 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 Aug 06 2019 2:00PM Atrial Fibrillation Aug 20 2019 11:44AM group home 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 Aug 20 2019 11:44AM Hypertension Aug 21 2019 11:40AM CAD (coronary artery disease) Aug 21 2019 11:40AM Atrial fibrillation Aug 21 2019 11:40AM group home 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 Sep 02 2019 1:00PM Bitten or stung by nonvenomous insect an d other nonvenomous arthropods, initial encounter Sep 02 2019 1:00PM Capillary hemangioma Sep 02 2019 11:39AM Skin ulceration Sep 02 2019 11:39AM Hypertension, Benign Essential Sep 22 2019 4:00PM Atrial Fibrillation Sep 29 2019 1:55PM 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 Sep 29 2019 1:55PM Right leg ulcer Sep 29 2019 1:46PM Atrial fibrillation Sep 29 2019 1:46PM Edema Oct 13 2019 10:50AM UTI (urinary tract infection) Oct 13 2019 10:50AM Atrial Fibrillation Oct 13 2019 10:50AM 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 Oct 13 2019 10:50AM UTI (urinary tract infection) Oct 13 2019 10:15AM Diverticulitis Oct 13 2019 10:15AM Atrial fibrillation Oct 13 2019 10:15AM Renal insufficiency Oct 13 2019 10:15AM Fatigue Oct 13 2019 10:15AM Right Leg ulcer Oct 13 2019 10:15AM Atrial Fibrillation Oct 16 2019 2:47PM group home 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 Oct 16 2019 2:47PM Atrial Fibrillation Oct 22 2019 4:29PM 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 Oct 22 2019 4:29PM Atrial Fibrillation Oct 30 2019 10:29AM 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 Oct 30 2019 10:29AM Atrial Fibrillation Nov 06 2019 3:05PM 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 Nov 06 2019 3:05PM Nonhealing skin ulcer Nov 11 2019 2:03PM Atrial Fibrillation Nov 11 2019 2:39PM 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 Nov 11 2019 2:39PM Non-healing wound of right lower extremity Nov 12 2019 4:22 PM Atrial Fibrillation Nov 25 2019 4:03PM 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 Nov 25 2019 4:03PM Atrial Fibrillation Dec 09 2019 1:41PM group home 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 Dec 09 2019 1:41PM Atrial Fibrillation Dec 22 2019 10:47AM 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 Dec 22 2019 10:47AM Flu Vaccine Dec 22 2019 10:54AM Atrial Fibrillation Jan 07 2020 1:00PM 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 Jan 07 2020 1:00PM Atrial Fibrillation Jan 20 2020 11:44AM group home 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 Jan 20 2020 11:44AM Atrial Fibrillation Feb 10 2020 11:51AM group home 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 Feb 10 2020 11:51AM COPD (chronic obstructive pulmonary disease) Feb 23 2020 4: 04PM Atrial fibrillation Feb 23 2020 4:04PM Leg wound, right Feb 23 2020 4:04PM Atrial Fibrillation Feb 24 2020 5:38PM 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 Feb 24 2020 5:38PM Encounter for laboratory testing for COVID-19 virus Mar 03 1:18PM Close exposure to severe acute respiratory syndrome co ronavirus 2 (SARS-CoV-2) Mar 03 2020 1:18PM Cough Mar 03 2020 1:18PM Congestion of nasal sinus Mar 03 2020 1:18PM Atrial Fibrillation Mar 15 2020 3:32PM 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 Mar 15 2020 3:32PM [...] 1:45PM Atrial Fibrillation Apr 22 2020 12:17PM group home 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 Apr 22 2020 12:17PM Atrial Fibrillation May 04 2020 2:26PM 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 May 04 2020 2:26PM Diabetes mellitus, type II May 04 2020 3:15PM Dysuria May 04 2020 3:15PM Type 2 diabetes mellitus May 04 2020 1:26PM Dysuria May 04 2020 1:26PM Atrial fibrillation May 04 2020 1:26PM Encounter for laboratory testing for COVID-19 virus May 27 2 021 4:54PM Cough May 27 2020 4:54PM Atrial Fibrillation May 31 2020 11:28AM 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 May 31 2020 11:28AM Follow up Jun 21 2020 2:09PM Diabetes mellitus, type II Jun 21 2020 4:36PM Fatigue Jun 21 2020 4:36PM COVID-19 Jun 21 2020 4:36PM Atrial Fibrillation Jun 22 2020 11:34AM 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 Jun 22 2020 11:34AM [...] 2:08PM Atrial Fibrillation Aug 25 2020 2:15PM 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 Aug 25 2020 2:15PM Rash Aug 25 2020 1:24PM Atrial fibrillation Aug 25 2020 1:24PM Anemia Aug 25 2020 1:24PM Rash Aug 30 2020 3:03PM Hyperkalemia Aug 31 2020 2:03PM Squamous cell carcinoma of scalp Sep 07 2020 3:32PM Atrial fibrillation Sep 10 2020 8:48AM 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 current use of anticoagulant Sep 10 2020 8:48AM Cellulitis, right foot Sep 16 2020 12:50PM Toe ulcer Sep 16 2020 12:50PM Type 2 diabetes mellitus Sep 16 2020 12:50PM CKD (chronic kidney disease), stage III Sep 16 2020 12:50PM Right second toe ulcer Sep 16 2020 2:19PM Atrial fibrillation Sep 20 2020 4:33PM group home current use of anticoagulant Sep 20 2020 4:33PM Foot ulceration, right 2nd toe Sep 20 2020 4:03PM Cellulitis Sep 20 2020 4:03PM Cellulitis Sep 21 2020 12:19PM Cellulitis Sep 21 2020 4:05PM Osteomyelitis Sep 21 2020 9:02AM Skin ulceration, right 2nd toe Sep 27 2020 11:58AM Cellulitis Sep 27 2020 11:58AM Payers Insurance Name Company Name Plan Name Plan Number Policy Number [place] Group Number Start Date Medicare RHC Medicare RHC [id number] N/ A [employer] [place] [employer] Ins Compan [id number] N/A Medicare Part B Medicare Of [place] [id number] N/A Medicare Part A Medicare - Lab/Xray [id number] N/A Sudanese Family Sudanese Family Auto [id number] N/A Sudanese Family Sudanese Family [id number] N/A [employer] [id number] N/A History of Encounters Visit Date Visit Type Provider 09/27/2020 Office visit Jazmine Meade MD 09/21/2020 Laboratory Chaz Damon HOISTING ENGINEER 09/20/2020 Office visit Jazmine Meade MD 09/16/2020 [...] Jazmine Meade MD 04/21/2020 Nurse visit David Tarangol A PRN 04/05/2020 Office visit Jazmine Meade MD 03/29/2020 Office visit Jazmine Meade MD 03/22/2020 Office visit Jazmien Meade MD 03/15/2020 Nurse visit Jazmine Meade MD 03/02/2020 Office visit Chaz Damon HOISTING ENGINEER 02/23/2020 Office visit Jazmine Meade MD 02/10/2020 Laboratory Jazmine Meade MD 01/20/2020 Laboratory Jazmine Meade MD 01/07/2020 Laboratory Jazmine Meade MD 12/22/2019 Laboratory Jazmine Meade MD 12/09/2019 Laboratory Jazmine Meade MD 11/25/2019 Laboratory Jazmine Meade MD 11/11/2019 Office visit Jazmine Meade MD 11/06/2019 Nurse visit Jazmine Meade MD 10/30/2019 Laboratory Jazmine Meade MD 10/22/2019 Laboratory David Franco Frazell A PRN 10/16/2019 Laboratory David Poncezell A PRN 10/13/2019 Office visit Jazmine Meade MD 09/29/2019 Office visit Jazmine Meade MD 09/22/2019 Nurse visit David Poncezell A PRN 09/02/2019 Office visit Jazmine Meade MD 08/21/2019 Office visit Jazmine Meade MD 08/20/2019 Laboratory Jazmine Meade MD 08/06/2019 Office visit Jazmine Meade MD 07/17/2019 Office visit Jazmine Meade MD 04/17/2019 Laboratory Ronnell Rizo NP 04/08/2019 Voided Jazmine Meade MD 03/19/2019 Office visit Jazmine Meade MD 12/24/2018 Laboratory Jazmine Meade MD 12/19/2018 Office visit Jazmine Meade MD 12/12/2018 Procedures Sebastiantrenton Vazquez DO 12/05/2018 Office visit Jazmine Meade MD 11/27/2018 Office visit Jazmine Meade MD 11/04/2018 Office visit Jazmine Meade MD 10/23/2018 Office visit Jazmine Meade MD 09/23/2018 Radiology Ronnell Rizo RADIO SPORTSCASTER 09/23/2018 Office visit 09/23/2018 Office visit Jazmine Meade MD 09/18/2018 Laboratory Jazmine Meade MD 09/04/2018 Laboratory Jazmine Meade MD 08/21/2018 Office visit Jazmine Meade MD 08/07/2018 Laboratory Jazmine Meade MD 07/24/2018 Radiology Ronnell Rizo RADIO SPORTSCASTER 07/24/2018 Office visit Jazmine Meade MD 07/16/2018 Office visit Jazmine Meade MD 05/27/2018 Office visit Jazmine Meade MD 05/04/2018 Office visit Ronnell Rizo NP 04/16/2018 Office visit Jazmine Meade MD 04/01/2018 Office visit Jazmine Meade MD 03/25/2018 Office visit Jazmine Meade MD 03/22/2018 Laboratory Chaz Damon HOISTING ENGINEER 03/15/2018 Laboratory Chaz Damon HOISTING ENGINEER 03/13/2018 Office visit Jazmine Meade MD 03/08/2018 Laboratory Chaz Damon HOISTING ENGINEER 03/07/2018 Voided Jazmine Meade MD 02/28/2018 Office visit Jazmine Meade MD
--- OUTSIDE RECORDS SUMMARY | 2020-10-29 14:23 | XMS REPORT ---
Author Ann Nevarez Organization [facility] Address [address] [place], [place] [id number] Care Team Providers Care Optical Worker Name Role Phone Jazmine Meade PCP Unavailable Jazmine Meade PreferredProvider Unavailable Allergies and Adverse Reactions Name Reaction Notes aspirin Atenolol Buprenex buspirone captopril furosemide Guaifenesin hydrochlorothiazide lisinopril morphine nitrofurantoin PENICILLINS terazosin celery [place] Hydrocodone Compound codeine sulfate Plan of Treatment [...] PM INR 2.10 secs 03/03/2020 1:31 PM [id number] NOT DETECTED 03/15/2020 3:32 PM INR 2.20 [...] PM INR 1.80 secs 05/27/2020 12:30 PM [id number] DETECTED 05/31/2020 11:28 AM INR 4.50 secs [...] Influenza 12/24/2018 sanofi pasteur PMC FLUZONE-HIGH DOSE [id number] In tramuscular Left Deltoid 12/24/2018 03/12/2021 135 Influenza 12/22/2019 sanofi pasteur PMC FLUZONE-HIGH DOSE [id number] In tramuscular Right Deltoid 12/22/2019 10/24/2018 135 Tdap 03/22/2020 [id number] SKB BOOSTRIX [id number] Intramuscular Left Deltoid 03/22/2020 [...] 9:06AM Atrial Fibrillation Mar 15 2018 8:43AM custodial 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 Mar 15 2018 8:43AM Atrial Fibrillation Mar 22 2018 9:42AM rat 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 Mar 22 2018 9:42AM Epigastric pain Mar 25 2018 11:43AM Abdominal pain Mar 25 2018 11:05AM Atrial fibrillation, on long-term anticoagulation Mar 25 201 9 11:05AM INR (international normal ratio) abnormal, subtherapeutic Ja 2018 11:05AM Abdominal pain, improved Apr 01 2018 1:45PM Atrial Fibrillation Apr 01 2018 2:31PM rat 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 Apr 01 2018 2:31PM [...] 2:03PM Atrial Fibrillation Jul 16 2018 2:56PM custodial 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 Jul 16 2018 2:56PM Atrial fibrillation Jul 24 2018 10:52AM Abdominal pain Jul 24 2018 10:52AM Abdominal pain Jul 24 2018 10:35AM Atrial fibrillation Jul 24 2018 10:35AM Abdominal pain Jul 24 2018 11:12AM Atrial Fibrillation Aug 07 2018 1:38PM custodial 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 Aug 07 2018 1:38PM custodial 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 Aug 21 2018 11:01AM Diabetes mellitus, type II Aug 21 2018 11:03AM Hypertension Aug 21 2018 10:26AM Type 2 diabetes mellitus Aug 21 2018 10:26AM Situational stress Aug 21 2018 10:26AM Atrial fibrillation Aug 21 2018 10:26AM rat 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 Sep 04 2018 9:37AM custodial 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 Sep 18 2018 10:08AM [...] 10:38AM Atrial Fibrillation Oct 23 2018 11:16AM rat 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 Oct 23 2018 11:16AM Varicose vein of leg Nov 04 2018 11:04AM Skin avulsion Nov 04 2018 11:04AM Contact dermatitis Nov 04 2018 11:04AM Situational stress Nov 04 2018 11:04AM Diabetes mellitus, type II Nov 27 2018 10:58AM custodial (current) 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 Nov 27 2018 [...] 1:45PM Atrial Fibrillation Dec 24 2018 1:46PM custodial 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 Dec 24 2018 1:46PM Flu Vaccine Dec 24 2018 3:08PM Breast cancer screening by mammogram Mar 19 2019 10:46AM Hypertension Mar 19 2019 11:46AM T2DM (type 2 diabetes mellitus) Mar 19 2019 11:46AM Atrial Fibrillation Mar 19 2019 11:49AM rat 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 Mar 19 2019 11:49AM Type 2 diabetes mellitus Mar 19 2019 11:27AM Hypertension Mar 19 2019 11:27AM Atrial fibrillation Mar 19 2019 11:27AM Atrial Fibrillation Apr 17 2019 4:32PM custodial 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 Apr 17 2019 4:32PM Atrial fibrillation Jul 17 2019 11:21AM Hypertension Jul 17 2019 11:21AM Diabetes mellitus, type II Jul 17 2019 11:21AM Atrial Fibrillation Jul 17 2019 11:30AM rat 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 Jul 17 2019 11:30AM Hypertension Jul 17 2019 10:42AM Atrial fibrillation Jul 17 2019 10:42AM Type 2 diabetes mellitus Jul 17 2019 10:42AM Type 2 diabetes mellitus Aug 06 2019 1:36PM Hypertension Aug 06 2019 1:36PM Atrial fibrillation Aug 06 2019 1:36PM Atrial Fibrillation Aug 06 2019 2:00PM rat 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 Aug 06 2019 2:00PM Atrial Fibrillation Aug 20 2019 11:44AM custodial use of anticoagulants Aug 20 2019 11:44AM Hypertension Aug 21 2019 11:40AM CAD (coronary artery disease) Aug 21 2019 11:40AM Atrial fibrillation Aug 21 2019 11:40AM custodial use of anticoagulants Sep 02 2019 1:00PM Bitten or stung by nonvenomous insect an d other nonvenomous arthropods, initial encounter Sep 02 2019 1:00PM Capillary hemangioma Sep 02 2019 11:39AM Skin ulceration Sep 02 2019 11:39AM Hypertension, Benign Essential Sep 22 2019 4:00PM Atrial Fibrillation Sep 29 2019 1:55PM rat 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 use of anticoagulants Sep 29 2019 1:55PM Right leg ulcer Sep 29 2019 1:46PM Atrial fibrillation Sep 29 2019 1:46PM Edema Oct 13 2019 10:50AM UTI (urinary tract infection) Oct 13 2019 10:50AM Atrial Fibrillation Oct 13 2019 10:50AM rat 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 use of anticoagulants Oct 13 2019 10:50AM UTI (urinary tract infection) Oct 13 2019 10:15AM Diverticulitis Oct 13 2019 10:15AM Atrial fibrillation Oct 13 2019 10:15AM Renal insufficiency Oct 13 2019 10:15AM Fatigue Oct 13 2019 10:15AM Right Leg ulcer Oct 13 2019 10:15AM Atrial Fibrillation Oct 16 2019 2:47PM custodial use of anticoagulants Oct 16 2019 2:47PM Atrial Fibrillation Oct 22 2019 4:29PM rat 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 use of anticoagulants Oct 22 2019 4:29PM Atrial Fibrillation Oct 30 2019 10:29AM rat 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 use of anticoagulants Oct 30 2019 10:29AM Atrial Fibrillation Nov 06 2019 3:05PM rat 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 use of anticoagulants Nov 06 2019 3:05PM Nonhealing skin ulcer Nov 11 2019 2:03PM Atrial Fibrillation Nov 11 2019 2:39PM rat 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 use of anticoagulants Nov 11 2019 2:39PM Non-healing wound of right lower extremity Nov 12 2019 4:22 PM Atrial Fibrillation Nov 25 2019 4:03PM rat 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 use of anticoagulants Nov 25 2019 4:03PM Atrial Fibrillation Dec 09 2019 1:41PM custodial use of anticoagulants Dec 09 2019 1:41PM Atrial Fibrillation Dec 22 2019 10:47AM rat 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 use of anticoagulants Dec 22 2019 10:47AM Flu Vaccine Dec 22 2019 10:54AM Atrial Fibrillation Jan 07 2020 1:00PM rat 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 use of anticoagulants Jan 07 2020 1:00PM Atrial Fibrillation Jan 20 2020 11:44AM custodial use of anticoagulants Jan 20 2020 11:44AM Atrial Fibrillation Feb 10 2020 11:51AM custodial use of anticoagulants Feb 10 2020 11:51AM COPD (chronic obstructive pulmonary disease) Feb 23 2020 4: 04PM Atrial fibrillation Feb 23 2020 4:04PM Leg wound, right Feb 23 2020 4:04PM Atrial Fibrillation Feb 24 2020 5:38PM rat 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 use of anticoagulants Feb 24 2020 5:38PM Encounter for laboratory testing for COVID-19 virus Mar 03 1:18PM Close exposure to severe acute respiratory syndrome co ronavirus 2 (SARS-CoV-2) Mar 03 2020 1:18PM Cough Mar 03 2020 1:18PM Congestion of nasal sinus Mar 03 2020 1:18PM Atrial Fibrillation Mar 15 2020 3:32PM rat 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 use of anticoagulants Mar 15 2020 3:32PM [...] 1:45PM Atrial Fibrillation Apr 22 2020 12:17PM custodial use of anticoagulants Apr 22 2020 12:17PM Atrial Fibrillation May 04 2020 2:26PM rat 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 use of anticoagulants May 04 2020 2:26PM Diabetes mellitus, type II May 04 2020 3:15PM Dysuria May 04 2020 3:15PM Type 2 diabetes mellitus May 04 2020 1:26PM Dysuria May 04 2020 1:26PM Atrial fibrillation May 04 2020 1:26PM Encounter for laboratory testing for COVID-19 virus May 27 2 021 4:54PM Cough May 27 2020 4:54PM Atrial Fibrillation May 31 2020 11:28AM rat 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 use of anticoagulants May 31 2020 11:28AM Follow up Jun 21 2020 2:09PM Diabetes mellitus, type II Jun 21 2020 4:36PM Fatigue Jun 21 2020 4:36PM COVID-19 Jun 21 2020 4:36PM Atrial Fibrillation Jun 22 2020 11:34AM rat 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 use of anticoagulants Jun 22 2020 11:34AM [...] 2:08PM Atrial Fibrillation Aug 25 2020 2:15PM rat 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 use of anticoagulants Aug 25 2020 2:15PM Rash Aug 25 2020 1:24PM Atrial fibrillation Aug 25 2020 1:24PM Anemia Aug 25 2020 1:24PM Rash Aug 30 2020 3:03PM Hyperkalemia Aug 31 2020 2:03PM Squamous cell carcinoma of scalp Sep 07 2020 3:32PM Atrial fibrillation Sep 10 2020 8:48AM rat 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 current use of anticoagulant Sep 10 2020 8:48AM Cellulitis, right foot Sep 16 2020 12:50PM Toe ulcer Sep 16 2020 12:50PM Type 2 diabetes mellitus Sep 16 2020 12:50PM CKD (chronic kidney disease), stage III Sep 16 2020 12:50PM Right second toe ulcer Sep 16 2020 2:19PM Atrial fibrillation Sep 20 2020 4:33PM custodial current use of anticoagulant Sep 20 2020 4:33PM Foot ulceration, right 2nd toe Sep 20 2020 4:03PM Cellulitis Sep 20 2020 4:03PM Cellulitis Sep 21 2020 12:19PM Cellulitis Sep 21 2020 4:05PM Osteomyelitis Sep 21 2020 9:02AM Payers Insurance Name Company Name Plan Name Plan Number Policy Number [employer] Group Number Start Date Medicare RHC Medicare RHC [id number] N/ A [employer] Insurance [employer] Ins Compan [id number] N/A Medicare Part B Medicare Of [place] [id number] N/A Medicare Part A Medicare - Lab/Xray [id number] N/A Citizen Of [place] Family Citizen Of [place] Family Auto [id number] N/A Citizen Of [place] Family Citizen Of [place] Family [id number] N/A [employer] Insurance [employer] Ins [id number] N/A History of Encounters Visit Date Visit Type Provider 09/27/2020 Office visit Jazmine Meade MD 09/21/2020 Laboratory Chaz Damon TONGUE TRIMMER 09/20/2020 Office visit Jazmine Meade MD 09/16/2020 [...] Jazmine Meade MD 04/21/2020 Nurse visit David Peterson A PRN 04/05/2020 Office visit Jazmine Meade MD 03/29/2020 Office visit Jazmine Meade MD 03/22/2020 Office visit Jazmine Meade MD 03/15/2020 Nurse visit Jazmine Meade MD 03/02/2020 Office visit Chaz Damon APRN 02/23/2020 Office visit Jazmine Meade MD 02/10/2020 Laboratory Jazmine Meade MD 01/20/2020 Laboratory Jazmine Meade MD 01/07/2020 Laboratory Jazmine Meade MD 12/22/2019 Laboratory Jazmine Meade MD 12/09/2019 Laboratory Jazmine Meade MD 11/25/2019 Laboratory Jazmine Meade MD 11/11/2019 Office visit Jazmine Meade MD 11/06/2019 Nurse visit Jazmine Meade MD 10/30/2019 Laboratory Jazmine Meade MD 10/22/2019 Laboratory David Tarangol A PRN 10/16/2019 Laboratory David Tarangol A PRN 10/13/2019 Office visit Jazmine Meade MD 09/29/2019 Office visit Jazmine Meade MD 09/22/2019 Nurse visit David Tarangol A PRN 09/02/2019 Office visit Jazmine Meade [...] Jazmine Meade MD 03/22/2018 Laboratory Chaz Damon TONGUE TRIMMER 03/15/2018 Laboratory Chaz Damon TONGUE TRIMMER 03/13/2018 Office visit Jazmine Meade MD 03/08/2018 Laboratory Chaz Damon TONGUE TRIMMER 03/07/2018 Voided Jazmine Meade MD 02/28/2018 Office visit Jazmine Meade MD
--- OUTSIDE RECORDS SUMMARY | 2020-10-29 14:23 | XMS REPORT ---
Author Ann Nevarez Organization [facility] Address [address] [place], [place] [address] Care Team Providers Care Operater Name Role Phone Jazmine Meade PCP Unavailable Jazmine Meade PreferredProvider Unavailable Allergies and Adverse Reactions Name Reaction Notes aspirin Atenolol Buprenex buspirone captopril furosemide Guaifenesin hydrochlorothiazide lisinopril morphine nitrofurantoin PENICILLINS terazosin celery [place] Hydrocodone Compound codeine sulfate Plan of Treatment [...] PM INR 2.10 secs 03/03/2020 1:31 PM [id number] NOT DETECTED 03/15/2020 3:32 PM INR 2.20 [...] PM INR 1.80 secs 05/27/2020 12:30 PM [id number] DETECTED 05/31/2020 11:28 AM INR 4.50 secs [...] 24 BUN 30.0 mg/dLCREATININE 1.90 mg/dLCALCIUM 9.0 mg/dL GFR NonAA 25 GFR AA 30 eGFR [...] Influenza 12/24/2018 sanofi pasteur PMC FLUZONE-HIGH DOSE [id number] In tramuscular Left Deltoid 12/24/2018 03/12/2021 135 Influenza 12/22/2019 sanofi pasteur PMC FLUZONE-HIGH DOSE [id number] In tramuscular Right Deltoid 12/22/2019 10/24/2018 135 Tdap 03/22/2020 GlaxDZZOMine SKB BOOSTRIX [id number] Intramuscular Left Deltoid 03/22/2020 [...] 9:06AM Atrial Fibrillation Mar 15 2018 8:43AM manager terminal use of anticoagulants Mar 15 2018 8:43AM Atrial Fibrillation Mar 22 2018 9:42AM manager terminal use of anticoagulants Mar 22 2018 9:42AM Epigastric pain Mar 25 2018 11:43AM Abdominal pain Mar 25 2018 11:05AM Atrial fibrillation, on long-term anticoagulation Mar 25 201 9 11:05AM INR (international normal ratio) abnormal, subtherapeutic Ja 2018 11:05AM Abdominal pain, improved Apr 01 2018 1:45PM Atrial Fibrillation Apr 01 2018 2:31PM manager terminal use of anticoagulants Apr 01 2018 2:31PM [...] 2:03PM Atrial Fibrillation Jul 16 2018 2:56PM manager terminal use of anticoagulants Jul 16 2018 2:56PM Atrial fibrillation Jul 24 2018 10:52AM Abdominal pain Jul 24 2018 10:52AM Abdominal pain Jul 24 2018 10:35AM Atrial fibrillation Jul 24 2018 10:35AM Abdominal pain Jul 24 2018 11:12AM Atrial Fibrillation Aug 07 2018 1:38PM nursing home use of anticoagulants Aug 07 2018 1:38PM nursing home use of anticoagulants Aug 21 2018 11:01AM Diabetes mellitus, type II Aug 21 2018 11:03AM Hypertension Aug 21 2018 10:26AM Type 2 diabetes mellitus Aug 21 2018 10:26AM Situational stress Aug 21 2018 10:26AM Atrial fibrillation Aug 21 2018 10:26AM manager terminal use of anticoagulants Sep 04 2018 9:37AM manager terminal use of anticoagulants Sep 18 2018 10:08AM [...] 10:38AM Atrial Fibrillation Oct 23 2018 11:16AM nursing home use of anticoagulants Oct 23 2018 11:16AM Varicose vein of leg Nov 04 2018 11:04AM Skin avulsion Nov 04 2018 11:04AM Contact dermatitis Nov 04 2018 11:04AM Situational stress Nov 04 2018 11:04AM Diabetes mellitus, type II Nov 27 2018 10:58AM manager terminal (current) use of anticoagulants Nov 27 2018 [...] 1:45PM Atrial Fibrillation Dec 24 2018 1:46PM nursing home use of anticoagulants Dec 24 2018 1:46PM Flu Vaccine Dec 24 2018 3:08PM Breast cancer screening by mammogram Mar 19 2019 10:46AM Hypertension Mar 19 2019 11:46AM T2DM (type 2 diabetes mellitus) Mar 19 2019 11:46AM Atrial Fibrillation Mar 19 2019 11:49AM manager terminal use of anticoagulants Mar 19 2019 11:49AM Type 2 diabetes mellitus Mar 19 2019 11:27AM Hypertension Mar 19 2019 11:27AM Atrial fibrillation Mar 19 2019 11:27AM Atrial Fibrillation Apr 17 2019 4:32PM nursing home use of anticoagulants Apr 17 2019 4:32PM Atrial fibrillation Jul 17 2019 11:21AM Hypertension Jul 17 2019 11:21AM Diabetes mellitus, type II Jul 17 2019 11:21AM Atrial Fibrillation Jul 17 2019 11:30AM nursing home use of anticoagulants Jul 17 2019 11:30AM Hypertension Jul 17 2019 10:42AM Atrial fibrillation Jul 17 2019 10:42AM Type 2 diabetes mellitus Jul 17 2019 10:42AM Type 2 diabetes mellitus Aug 06 2019 1:36PM Hypertension Aug 06 2019 1:36PM Atrial fibrillation Aug 06 2019 1:36PM Atrial Fibrillation Aug 06 2019 2:00PM nursing home use of anticoagulants Aug 06 2019 2:00PM Atrial Fibrillation Aug 20 2019 11:44AM nursing home use of anticoagulants Aug 20 2019 11:44AM Hypertension Aug 21 2019 11:40AM CAD (coronary artery disease) Aug 21 2019 11:40AM Atrial fibrillation Aug 21 2019 11:40AM manager terminal use of anticoagulants Sep 02 2019 1:00PM Bitten or stung by nonvenomous insect an d other nonvenomous arthropods, initial encounter Sep 02 2019 1:00PM Capillary hemangioma Sep 02 2019 11:39AM Skin ulceration Sep 02 2019 11:39AM Hypertension, Benign Essential Sep 22 2019 4:00PM Atrial Fibrillation Sep 29 2019 1:55PM manager terminal use of anticoagulants Sep 29 2019 1:55PM Right leg ulcer Sep 29 2019 1:46PM Atrial fibrillation Sep 29 2019 1:46PM Edema Oct 13 2019 10:50AM UTI (urinary tract infection) Oct 13 2019 10:50AM Atrial Fibrillation Oct 13 2019 10:50AM nursing home use of anticoagulants Oct 13 2019 10:50AM UTI (urinary tract infection) Oct 13 2019 10:15AM Diverticulitis Oct 13 2019 10:15AM Atrial fibrillation Oct 13 2019 10:15AM Renal insufficiency Oct 13 2019 10:15AM Fatigue Oct 13 2019 10:15AM Right Leg ulcer Oct 13 2019 10:15AM Atrial Fibrillation Oct 16 2019 2:47PM manager terminal use of anticoagulants Oct 16 2019 2:47PM Atrial Fibrillation Oct 22 2019 4:29PM manager terminal use of anticoagulants Oct 22 2019 4:29PM Atrial Fibrillation Oct 30 2019 10:29AM manager terminal use of anticoagulants Oct 30 2019 10:29AM Atrial Fibrillation Nov 06 2019 3:05PM manager terminal use of anticoagulants Nov 06 2019 3:05PM Nonhealing skin ulcer Nov 11 2019 2:03PM Atrial Fibrillation Nov 11 2019 2:39PM manager terminal use of anticoagulants Nov 11 2019 2:39PM Non-healing wound of right lower extremity Nov 12 2019 4:22 PM Atrial Fibrillation Nov 25 2019 4:03PM nursing home use of anticoagulants Nov 25 2019 4:03PM Atrial Fibrillation Dec 09 2019 1:41PM nursing home use of anticoagulants Dec 09 2019 1:41PM Atrial Fibrillation Dec 22 2019 10:47AM manager terminal use of anticoagulants Dec 22 2019 10:47AM Flu Vaccine Dec 22 2019 10:54AM Atrial Fibrillation Jan 07 2020 1:00PM manager terminal use of anticoagulants Jan 07 2020 1:00PM Atrial Fibrillation Jan 20 2020 11:44AM nursing home use of anticoagulants Jan 20 2020 11:44AM Atrial Fibrillation Feb 10 2020 11:51AM manager terminal use of anticoagulants Feb 10 2020 11:51AM COPD (chronic obstructive pulmonary disease) Feb 23 2020 4: 04PM Atrial fibrillation Feb 23 2020 4:04PM Leg wound, right Feb 23 2020 4:04PM Atrial Fibrillation Feb 24 2020 5:38PM manager terminal use of anticoagulants Feb 24 2020 5:38PM Encounter for laboratory testing for COVID-19 virus Mar 03 1:18PM Close exposure to severe acute respiratory syndrome co ronavirus 2 (SARS-CoV-2) Mar 03 2020 1:18PM Cough Mar 03 2020 1:18PM Congestion of nasal sinus Mar 03 2020 1:18PM Atrial Fibrillation Mar 15 2020 3:32PM manager terminal use of anticoagulants Mar 15 2020 3:32PM [...] 1:45PM Atrial Fibrillation Apr 22 2020 12:17PM manager terminal use of anticoagulants Apr 22 2020 12:17PM Atrial Fibrillation May 04 2020 2:26PM nursing home use of anticoagulants May 04 2020 2:26PM Diabetes mellitus, type II May 04 2020 3:15PM Dysuria May 04 2020 3:15PM Type 2 diabetes mellitus May 04 2020 1:26PM Dysuria May 04 2020 1:26PM Atrial fibrillation May 04 2020 1:26PM Encounter for laboratory testing for COVID-19 virus May 27 021 4:54PM Cough May 27 2020 4:54PM Atrial Fibrillation May 31 2020 11:28AM manager terminal use of anticoagulants May 31 2020 11:28AM Follow up Jun 21 2020 2:09PM Diabetes mellitus, type II Jun 21 2020 4:36PM Fatigue Jun 21 2020 4:36PM COVID-19 Jun 21 2020 4:36PM Atrial Fibrillation Jun 22 2020 11:34AM nursing home use of anticoagulants Jun 22 2020 11:34AM [...] 2:08PM Atrial Fibrillation Aug 25 2020 2:15PM nursing home use of anticoagulants Aug 25 2020 2:15PM Rash Aug 25 2020 1:24PM Atrial fibrillation Aug 25 2020 1:24PM Anemia Aug 25 2020 1:24PM Rash Aug 30 2020 3:03PM Hyperkalemia Aug 31 2020 2:03PM Squamous cell carcinoma of scalp Sep 07 2020 3:32PM Atrial fibrillation Sep 10 2020 8:48AM manager terminal current use of anticoagulant Sep 10 2020 8:48AM Cellulitis, right foot Sep 16 2020 12:50PM Toe ulcer Sep 16 2020 12:50PM Type 2 diabetes mellitus Sep 16 2020 12:50PM CKD (chronic kidney disease), stage III Sep 16 2020 12:50PM Right second toe ulcer Sep 16 2020 2:19PM Atrial fibrillation Sep 20 2020 4:33PM nursing home current use of anticoagulant Sep 20 [...] [employer] Group Number Start Date Medicare [facility] Medicare RHC [id number] N/ A [employer] Insurance [employer] Ins Compan [id number] N/A Medicare Part B Medicare Of [place] [id number] N/A Medicare Part A Medicare - Lab/Xray [id number] N/A [place] Family [place] Family Auto [id number] N/A [place] Family [place] Family [id number] N/A [employer] Insurance [employer] Ins [id number] N/A History of Encounters Visit Date Visit Type Provider 09/27/2020 Office visit Jazmine Meade MD 09/21/2020 Laboratory Chaz Damon DOCTOR CHIROPRACTIC 09/20/2020 Office visit Jazmine Meade MD 09/16/2020 [...] Meade MD 03/02/2020 Office visit Chaz Damon DOCTOR CHIROPRACTIC 02/23/2020 Office visit Jazmine Meade MD 02/10/2020 [...] Jazmine Meade MD 03/22/2018 Laboratory Chaz Damon DOCTOR CHIROPRACTIC 03/15/2018 Laboratory Chaz Damon DOCTOR CHIROPRACTIC 03/13/2018 Office visit Jazmine Meade MD 03/08/2018 Laboratory Chaz Damon DOCTOR CHIROPRACTIC 03/07/2018 Voided Jazmine Meade MD 02/28/2018 Office visit Jazmine Meade MD
--- OUTSIDE RECORDS SUMMARY | 2020-10-29 14:24 | XMS REPORT ---
Author Author Ann Damon Organization [facility] Address [address] [place], [place] [id number] Care Team Providers Care Telepathist Name Role Phone Chaz Damon PCP Jazmine Meade PreferredProvider Unavailable Allergies and Adverse Reactions Name Reaction Notes aspirin Atenolol Buprenex buspirone captopril furosemide Guaifenesin hydrochlorothiazide lisinopril morphine nitrofurantoin PENICILLINS terazosin celery Waldo Pollen [place] Hydrocodone Compound codeine sulfate Plan of Treatment Planned Activity Comments Planned Date Planned Time Plan/Goal HGB A1C 12/05/2018 12:00 AM BMP 12/09/2018 12:00 AM PT/INR 12/24/2018 12:00 AM CBC W/ AUTO DIFF (RFLX MAN DIFF IF IND). 05/04/2020 12:00 AM COMPREHENSIVE METABOLIC PANEL 05/04/2020 12:00 AM HEMOGLOBIN A1C 05/04/2020 12:00 AM BASIC METABOLIC PANEL 07/26/2020 12:00 AM Fungal culture 08/25/2020 12:00 AM BMP 08/31/2020 12:00 AM BMP 09/21/2020 12:00 AM Medications Active Name Start Date [...] oral route every 6 hours as needed gabapentin 100 mg oral capsule 12/02/2019 t linda 1 capsule by oral route 3 times a day prn pain glimepiride 4 mg oral tablet 12/08/2019 12/02/2020 [...] oral route once daily for 10 days Name Start Date Expiration Date SIG Comments [...] HC BMI BSA BMI Percentile O2 Sat(%) 09/20/2020 3:59:00 PM 184 mm[Hg] 64 mm[Hg] [...] COMPREHEN METABOLIC PANEL Reviewed 08/25/2020 12:00 AM TISSUE EXAM FOR FUNGI Reviewed 08/25/2020 12:00 AM SMEAR WET MOUNT SALINE/INK Reviewed 08/25/2020 2:19 PM PROTHROMBIN TIME Reviewed 09/10/2020 8:48 AM PROTHROMBIN TIME Reviewed 09/16/2020 12:00 AM CUL BACT XCPT URINE BLOOD/STOOL AEROBIC ISOL Reviewed 09/20/2020 4:33 PM PROTHROMBIN TIME Reviewed 09/21/2020 12:00 AM COLLECTION VENOUS BLOOD [...] PM INR 2.10 secs 03/03/2020 1:31 PM [id number] NOT DETECTED 03/15/2020 3:32 PM INR 2.20 [...] PM INR 1.80 secs 05/27/2020 12:30 PM [id number] DETECTED 05/31/2020 11:28 AM INR 4.50 secs [...] 0.17 #BASO 0.04 MANUAL DIFF NOT IND 08/25/2020 2:19 PM INR 2.10 secs 09/10/2020 8:48 AM INR 2.30 secs 09/20/2020 4:33 PM INR 2.30 secs History Of Immunizations Name Date Admin Mfg [...] Influenza 12/24/2018 sanofi pasteur PMC FLUZONE-HIGH DOSE [id number] In tramuscular Left Deltoid 12/24/2018 03/12/2021 135 Influenza 12/22/2019 sanofi pasteur PMC FLUZONE-HIGH DOSE [id number] In tramuscular Right Deltoid 12/22/2019 10/24/2018 135 Tdap 03/22/2020 Gl[employer] SKB BOOSTRIX [id number] Intramuscular Left Deltoid 03/22/2020 [...] 9:06AM Atrial Fibrillation Mar 15 2018 8:43AM intermediate frame tender use of anticoagulants Mar 15 2018 8:43AM Atrial Fibrillation Mar 22 2018 9:42AM intermediate frame tender use of anticoagulants Mar 22 2018 9:42AM Epigastric pain Mar 25 2018 11:43AM Abdominal pain Mar 25 2018 11:05AM Atrial fibrillation, on long-term anticoagulation Mar 25 201 9 11:05AM INR (international normal ratio) abnormal, subtherapeutic Ja n 2018 11:05AM Abdominal pain, improved Apr 01 2018 1:45PM Atrial Fibrillation Apr 01 2018 2:31PM skilled nursing use of anticoagulants Apr 01 2018 2:31PM [...] 2:03PM Atrial Fibrillation Jul 16 2018 2:56PM skilled nursing use of anticoagulants Jul 16 2018 2:56PM Atrial fibrillation Jul 24 2018 10:52AM Abdominal pain Jul 24 2018 10:52AM Abdominal pain Jul 24 2018 10:35AM Atrial fibrillation Jul 24 2018 10:35AM Abdominal pain Jul 24 2018 11:12AM Atrial Fibrillation Aug 07 2018 1:38PM skilled nursing use of anticoagulants Aug 07 2018 1:38PM intermediate frame tender use of anticoagulants Aug 21 2018 11:01AM Diabetes mellitus, type II Aug 21 2018 11:03AM Hypertension Aug 21 2018 10:26AM Type 2 diabetes mellitus Aug 21 2018 10:26AM Situational stress Aug 21 2018 10:26AM Atrial fibrillation Aug 21 2018 10:26AM intermediate frame tender use of anticoagulants Sep 04 2018 9:37AM skilled nursing use of anticoagulants Sep 18 2018 10:08AM [...] 10:38AM Atrial Fibrillation Oct 23 2018 11:16AM intermediate frame tender use of anticoagulants Oct 23 2018 11:16AM Varicose vein of leg Nov 04 2018 11:04AM Skin avulsion Nov 04 2018 11:04AM Contact dermatitis Nov 04 2018 11:04AM Situational stress Nov 04 2018 11:04AM Diabetes mellitus, type II Nov 27 2018 10:58AM skilled nursing (current) use of anticoagulants Nov 27 2018 [...] 1:45PM Atrial Fibrillation Dec 24 2018 1:46PM skilled nursing use of anticoagulants Dec 24 2018 1:46PM Flu Vaccine Dec 24 2018 3:08PM Breast cancer screening by mammogram Mar 19 2019 10:46AM Hypertension Mar 19 2019 11:46AM T2DM (type 2 diabetes mellitus) Mar 19 2019 11:46AM Atrial Fibrillation Mar 19 2019 11:49AM intermediate frame tender use of anticoagulants Mar 19 2019 11:49AM Type 2 diabetes mellitus Mar 19 2019 11:27AM Hypertension Mar 19 2019 11:27AM Atrial fibrillation Mar 19 2019 11:27AM Atrial Fibrillation Apr 17 2019 4:32PM skilled nursing use of anticoagulants Apr 17 2019 4:32PM Atrial fibrillation Jul 17 2019 11:21AM Hypertension Jul 17 2019 11:21AM Diabetes mellitus, type II Jul 17 2019 11:21AM Atrial Fibrillation Jul 17 2019 11:30AM intermediate frame tender use of anticoagulants Jul 17 2019 11:30AM Hypertension Jul 17 2019 10:42AM Atrial fibrillation Jul 17 2019 10:42AM Type 2 diabetes mellitus Jul 17 2019 10:42AM Type 2 diabetes mellitus Aug 06 2019 1:36PM Hypertension Aug 06 2019 1:36PM Atrial fibrillation Aug 06 2019 1:36PM Atrial Fibrillation Aug 06 2019 2:00PM intermediate frame tender use of anticoagulants Aug 06 2019 2:00PM Atrial Fibrillation Aug 20 2019 11:44AM intermediate frame tender use of anticoagulants Aug 20 2019 11:44AM Hypertension Aug 21 2019 11:40AM CAD (coronary artery disease) Aug 21 2019 11:40AM Atrial fibrillation Aug 21 2019 11:40AM skilled nursing use of anticoagulants Sep 02 2019 1:00PM Bitten or stung by nonvenomous insect an d other nonvenomous arthropods, initial encounter Sep 02 2019 1:00PM Capillary hemangioma Sep 02 2019 11:39AM Skin ulceration Sep 02 2019 11:39AM Hypertension, Benign Essential Sep 22 2019 4:00PM Atrial Fibrillation Sep 29 2019 1:55PM skilled nursing use of anticoagulants Sep 29 2019 1:55PM Right leg ulcer Sep 29 2019 1:46PM Atrial fibrillation Sep 29 2019 1:46PM Edema Oct 13 2019 10:50AM UTI (urinary tract infection) Oct 13 2019 10:50AM Atrial Fibrillation Oct 13 2019 10:50AM skilled nursing use of anticoagulants Oct 13 2019 10:50AM UTI (urinary tract infection) Oct 13 2019 10:15AM Diverticulitis Oct 13 2019 10:15AM Atrial fibrillation Oct 13 2019 10:15AM Renal insufficiency Oct 13 2019 10:15AM Fatigue Oct 13 2019 10:15AM Right Leg ulcer Oct 13 2019 10:15AM Atrial Fibrillation Oct 16 2019 2:47PM intermediate frame tender use of anticoagulants Oct 16 2019 2:47PM Atrial Fibrillation Oct 22 2019 4:29PM intermediate frame tender use of anticoagulants Oct 22 2019 4:29PM Atrial Fibrillation Oct 30 2019 10:29AM intermediate frame tender use of anticoagulants Oct 30 2019 10:29AM Atrial Fibrillation Nov 06 2019 3:05PM skilled nursing use of anticoagulants Nov 06 2019 3:05PM Nonhealing skin ulcer Nov 11 2019 2:03PM Atrial Fibrillation Nov 11 2019 2:39PM intermediate frame tender use of anticoagulants Nov 11 2019 2:39PM Non-healing wound of right lower extremity Nov 12 2019 4:22 PM Atrial Fibrillation Nov 25 2019 4:03PM skilled nursing use of anticoagulants Nov 25 2019 4:03PM Atrial Fibrillation Dec 09 2019 1:41PM skilled nursing use of anticoagulants Dec 09 2019 1:41PM Atrial Fibrillation Dec 22 2019 10:47AM skilled nursing use of anticoagulants Dec 22 2019 10:47AM Flu Vaccine Dec 22 2019 10:54AM Atrial Fibrillation Jan 07 2020 1:00PM skilled nursing use of anticoagulants Jan 07 2020 1:00PM Atrial Fibrillation Jan 20 2020 11:44AM intermediate frame tender use of anticoagulants Jan 20 2020 11:44AM Atrial Fibrillation Feb 10 2020 11:51AM intermediate frame tender use of anticoagulants Feb 10 2020 11:51AM COPD (chronic obstructive pulmonary disease) Feb 23 2020 4: 04PM Atrial fibrillation Feb 23 2020 4:04PM Leg wound, right Feb 23 2020 4:04PM Atrial Fibrillation Feb 24 2020 5:38PM intermediate frame tender use of anticoagulants Feb 24 2020 5:38PM Encounter for laboratory testing for COVID-19 virus Mar 03 1:18PM Close exposure to severe acute respiratory syndrome co ronavirus 2 (SARS-CoV-2) Mar 03 2020 1:18PM Cough Mar 03 2020 1:18PM Congestion of nasal sinus Mar 03 2020 1:18PM Atrial Fibrillation Mar 15 2020 3:32PM skilled nursing use of anticoagulants Mar 15 2020 3:32PM [...] 1:45PM Atrial Fibrillation Apr 22 2020 12:17PM skilled nursing use of anticoagulants Apr 22 2020 12:17PM Atrial Fibrillation May 04 2020 2:26PM skilled nursing use of anticoagulants May 04 2020 2:26PM Diabetes mellitus, type II May 04 2020 3:15PM Dysuria May 04 2020 3:15PM Type 2 diabetes mellitus May 04 2020 1:26PM Dysuria May 04 2020 1:26PM Atrial fibrillation May 04 2020 1:26PM Encounter for laboratory testing for COVID-19 virus May 27 4:54PM Cough May 27 2020 4:54PM Atrial Fibrillation May 31 2020 11:28AM skilled nursing use of anticoagulants May 31 2020 11:28AM Follow up Jun 21 2020 2:09PM Diabetes mellitus, type II Jun 21 2020 4:36PM Fatigue Jun 21 2020 4:36PM COVID-19 Jun 21 2020 4:36PM Atrial Fibrillation Jun 22 2020 11:34AM skilled nursing use of anticoagulants Jun 22 2020 11:34AM [...] 2:08PM Atrial Fibrillation Aug 25 2020 2:15PM intermediate frame tender use of anticoagulants Aug 25 2020 2:15PM Rash Aug 25 2020 1:24PM Atrial fibrillation Aug 25 2020 1:24PM Anemia Aug 25 2020 1:24PM Rash Aug 30 2020 3:03PM Hyperkalemia Aug 31 2020 2:03PM Squamous cell carcinoma of scalp Sep 07 2020 3:32PM Atrial fibrillation Sep 10 2020 8:48AM skilled nursing current use of anticoagulant Sep 10 2020 8:48AM Cellulitis, right foot Sep 16 2020 12:50PM Toe ulcer Sep 16 2020 12:50PM Type 2 diabetes mellitus Sep 16 2020 12:50PM CKD (chronic kidney disease), stage III Sep 16 2020 12:50PM Right second toe ulcer Sep 16 2020 2:19PM Atrial fibrillation Sep 20 2020 4:33PM intermediate frame tender current use of anticoagulant Sep 20 2020 4:33PM Foot ulceration, right 2nd toe Sep 20 2020 4:03PM Cellulitis Sep 20 2020 4:03PM Cellulitis Sep 21 2020 12:19PM Cellulitis Sep 21 2020 4:05PM Payers Insurance Name Company Name Plan Name Plan Number Policy Number [place] Group Number Start Date Medicare RHC Medicare RHC [id number] N/ A [place] [employer] [place] [employer] Compan [id number] N/A Medicare Part B Medicare Of [place] [id number] N/A Medicare Part A Medicare - Lab/Xray [id number] N/A [place] Family [place] Family Auto [id number] N/A [place] Family Chilean Family [id number] N/A [place] [employer] [place] [employer] [id number] N/A History of Encounters Visit Date Visit Type Provider 09/21/2020 Laboratory Chaz Damon REPRODUCTIVE HEALTHCARE ASSISTANT 09/20/2020 Office visit Jazmine Meade MD 09/16/2020 [...] Meade MD 03/02/2020 Office visit Chaz Damon REPRODUCTIVE HEALTHCARE ASSISTANT 02/23/2020 Office visit Jazmine Meade MD 02/10/2020 Laboratory Jazmine Meade MD 01/20/2020 Laboratory Jazmine Meade MD 01/07/2020 Laboratory Jazmine Meade MD 12/22/2019 Laboratory Jazmine Meade MD 12/09/2019 Laboratory Jazmine Meade MD 11/25/2019 Laboratory Jazmine Meade MD 11/11/2019 Office visit Jazmine Meade MD 11/06/2019 Nurse visit Jazmine Meade MD 10/30/2019 Laboratory Jazmine Meade MD 10/22/2019 Laboratory Jillina L. Frazell A PRN 10/16/2019 Laboratory Jilljase L. Frazell A PRN 10/13/2019 Office visit [...] Jazmine Meade MD 03/22/2018 Laboratory Chaz Damon REPRODUCTIVE HEALTHCARE ASSISTANT 03/15/2018 Laboratory Chaz Damon REPRODUCTIVE HEALTHCARE ASSISTANT 03/13/2018 Office visit Jazmine Meade MD 03/08/2018 Laboratory Chaz Damon REPRODUCTIVE HEALTHCARE ASSISTANT 03/07/2018 Voided Jazmine Meade MD 02/28/2018 Office visit Jazmine Meade MD
--- OUTSIDE RECORDS SUMMARY | 2020-10-29 14:24 | XMS REPORT ---
Author Author Ann Damon [facility] Address [address] [place], [place] [address] Care Team Providers Care Live In Caregiver Name Role Phone Chaz Damon PCP Jazmine Meade PreferredProvider Unavailable Allergies and Adverse Reactions Name Reaction Notes aspirin Atenolol Buprenex buspirone captopril furosemide Guaifenesin hydrochlorothiazide lisinopril morphine nitrofurantoin PENICILLINS terazosin celery [place] Pollen [place] Hydrocodone Compound codeine sulfate Plan of Treatment [...] PM INR 2.10 secs 03/03/2020 1:31 PM [id number] NOT DETECTED 03/15/2020 3:32 PM INR 2.20 [...] PM INR 1.80 secs 05/27/2020 12:30 PM [id number] DETECTED 05/31/2020 11:28 AM INR 4.50 secs [...] Influenza 12/24/2018 sanofi pasteur PMC FLUZONE-HIGH DOSE [id number] In tramuscular Left Deltoid 12/24/2018 03/12/2021 135 Influenza 12/22/2019 sanofi pasteur PMC FLUZONE-HIGH DOSE [id number] In tramuscular Right Deltoid 12/22/2019 10/24/2018 135 Tdap 03/22/2020 [employer] SKB BOOSTRIX [id number] Intramuscular Left Deltoid 03/22/2020 [...] Atrial Fibrillation Mar 15 2018 8:43AM 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 use of anticoagulants Mar 15 2018 8:43AM Atrial Fibrillation Mar 22 2018 9:42AM 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 use of anticoagulants Mar 22 2018 9:42AM Epigastric pain Mar 25 2018 11:43AM Abdominal pain Mar 25 2018 11:05AM Atrial fibrillation, on long-term anticoagulation Mar 25 201 9 11:05AM INR (international normal ratio) abnormal, subtherapeutic Ja n 2018 11:05AM Abdominal pain, improved Apr 01 2018 1:45PM Atrial Fibrillation Apr 01 2018 2:31PM prison use of anticoagulants Apr 01 2018 2:31PM [...] 2:03PM Atrial Fibrillation Jul 16 2018 2:56PM prison use of anticoagulants Jul 16 2018 2:56PM Atrial fibrillation Jul 24 2018 10:52AM Abdominal pain Jul 24 2018 10:52AM Abdominal pain Jul 24 2018 10:35AM Atrial fibrillation Jul 24 2018 10:35AM Abdominal pain Jul 24 2018 11:12AM Atrial Fibrillation Aug 07 2018 1:38PM prison use of anticoagulants Aug 07 2018 1:38PM 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 use of anticoagulants Aug 21 2018 11:01AM Diabetes mellitus, type II Aug 21 2018 11:03AM Hypertension Aug 21 2018 10:26AM Type 2 diabetes mellitus Aug 21 2018 10:26AM Situational stress Aug 21 2018 10:26AM Atrial fibrillation Aug 21 2018 10:26AM 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 use of anticoagulants Sep 04 2018 9:37AM prison use of anticoagulants Sep 18 2018 10:08AM [...] Atrial Fibrillation Oct 23 2018 11:16AM 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 use of anticoagulants Oct 23 2018 11:16AM Varicose vein of leg Nov 04 2018 11:04AM Skin avulsion Nov 04 2018 11:04AM Contact dermatitis Nov 04 2018 11:04AM Situational stress Nov 04 2018 11:04AM Diabetes mellitus, type II Nov 27 2018 10:58AM prison (current) use of anticoagulants Nov 27 2018 [...] 1:45PM Atrial Fibrillation Dec 24 2018 1:46PM prison use of anticoagulants Dec 24 2018 1:46PM Flu Vaccine Dec 24 2018 3:08PM Breast cancer screening by mammogram Mar 19 2019 10:46AM Hypertension Mar 19 2019 11:46AM T2DM (type 2 diabetes mellitus) Mar 19 2019 11:46AM Atrial Fibrillation Mar 19 2019 11:49AM 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 use of anticoagulants Mar 19 2019 11:49AM Type 2 diabetes mellitus Mar 19 2019 11:27AM Hypertension Mar 19 2019 11:27AM Atrial fibrillation Mar 19 2019 11:27AM Atrial Fibrillation Apr 17 2019 4:32PM prison use of anticoagulants Apr 17 2019 4:32PM Atrial fibrillation Jul 17 2019 11:21AM Hypertension Jul 17 2019 11:21AM Diabetes mellitus, type II Jul 17 2019 11:21AM Atrial Fibrillation Jul 17 2019 11:30AM 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 use of anticoagulants Jul 17 2019 11:30AM Hypertension Jul 17 2019 10:42AM Atrial fibrillation Jul 17 2019 10:42AM Type 2 diabetes mellitus Jul 17 2019 10:42AM Type 2 diabetes mellitus Aug 06 2019 1:36PM Hypertension Aug 06 2019 1:36PM Atrial fibrillation Aug 06 2019 1:36PM Atrial Fibrillation Aug 06 2019 2:00PM 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 use of anticoagulants Aug 06 2019 2:00PM Atrial Fibrillation Aug 20 2019 11:44AM 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 use of anticoagulants Aug 20 2019 11:44AM Hypertension Aug 21 2019 11:40AM CAD (coronary artery disease) Aug 21 2019 11:40AM Atrial fibrillation Aug 21 2019 11:40AM prison use of anticoagulants Sep 02 2019 1:00PM Bitten or stung by nonvenomous insect an d other nonvenomous arthropods, initial encounter Sep 02 2019 1:00PM Capillary hemangioma Sep 02 2019 11:39AM Skin ulceration Sep 02 2019 11:39AM Hypertension, Benign Essential Sep 22 2019 4:00PM Atrial Fibrillation Sep 29 2019 1:55PM prison use of anticoagulants Sep 29 2019 1:55PM Right leg ulcer Sep 29 2019 1:46PM Atrial fibrillation Sep 29 2019 1:46PM Edema Oct 13 2019 10:50AM UTI (urinary tract infection) Oct 13 2019 10:50AM Atrial Fibrillation Oct 13 2019 10:50AM prison use of anticoagulants Oct 13 2019 10:50AM UTI (urinary tract infection) Oct 13 2019 10:15AM Diverticulitis Oct 13 2019 10:15AM Atrial fibrillation Oct 13 2019 10:15AM Renal insufficiency Oct 13 2019 10:15AM Fatigue Oct 13 2019 10:15AM Right Leg ulcer Oct 13 2019 10:15AM Atrial Fibrillation Oct 16 2019 2:47PM 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 use of anticoagulants Oct 16 2019 2:47PM Atrial Fibrillation Oct 22 2019 4:29PM 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 use of anticoagulants Oct 22 2019 4:29PM Atrial Fibrillation Oct 30 2019 10:29AM 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 use of anticoagulants Oct 30 2019 10:29AM Atrial Fibrillation Nov 06 2019 3:05PM prison use of anticoagulants Nov 06 2019 3:05PM Nonhealing skin ulcer Nov 11 2019 2:03PM Atrial Fibrillation Nov 11 2019 2:39PM 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 use of anticoagulants Nov 11 2019 2:39PM Non-healing wound of right lower extremity Nov 12 2019 4:22 PM Atrial Fibrillation Nov 25 2019 4:03PM prison use of anticoagulants Nov 25 2019 4:03PM Atrial Fibrillation Dec 09 2019 1:41PM prison use of anticoagulants Dec 09 2019 1:41PM Atrial Fibrillation Dec 22 2019 10:47AM prison use of anticoagulants Dec 22 2019 10:47AM Flu Vaccine Dec 22 2019 10:54AM Atrial Fibrillation Jan 07 2020 1:00PM prison use of anticoagulants Jan 07 2020 1:00PM Atrial Fibrillation Jan 20 2020 11:44AM 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 use of anticoagulants Jan 20 2020 11:44AM Atrial Fibrillation Feb 10 2020 11:51AM 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 use of anticoagulants Feb 10 2020 11:51AM COPD (chronic obstructive pulmonary disease) Feb 23 2020 4: 04PM Atrial fibrillation Feb 23 2020 4:04PM Leg wound, right Feb 23 2020 4:04PM Atrial Fibrillation Feb 24 2020 5:38PM 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 use of anticoagulants Feb 24 2020 5:38PM Encounter for laboratory testing for COVID-19 virus Mar 03 1:18PM Close exposure to severe acute respiratory syndrome co ronavirus 2 (SARS-CoV-2) Mar 03 2020 1:18PM Cough Mar 03 2020 1:18PM Congestion of nasal sinus Mar 03 2020 1:18PM Atrial Fibrillation Mar 15 2020 3:32PM prison use of anticoagulants Mar 15 2020 3:32PM [...] 1:45PM Atrial Fibrillation Apr 22 2020 12:17PM prison use of anticoagulants Apr 22 2020 12:17PM Atrial Fibrillation May 04 2020 2:26PM prison use of anticoagulants May 04 2020 2:26PM Diabetes mellitus, type II May 04 2020 3:15PM Dysuria May 04 2020 3:15PM Type 2 diabetes mellitus May 04 2020 1:26PM Dysuria May 04 2020 1:26PM Atrial fibrillation May 04 2020 1:26PM Encounter for laboratory testing for COVID-19 virus May 27 4:54PM Cough May 27 2020 4:54PM Atrial Fibrillation May 31 2020 11:28AM prison use of anticoagulants May 31 2020 11:28AM Follow up Jun 21 2020 2:09PM Diabetes mellitus, type II Jun 21 2020 4:36PM Fatigue Jun 21 2020 4:36PM COVID-19 Jun 21 2020 4:36PM Atrial Fibrillation Jun 22 2020 11:34AM prison use of anticoagulants Jun 22 2020 11:34AM [...] 2:08PM Atrial Fibrillation Aug 25 2020 2:15PM 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 use of anticoagulants Aug 25 2020 2:15PM Rash Aug 25 2020 1:24PM Atrial fibrillation Aug 25 2020 1:24PM Anemia Aug 25 2020 1:24PM Rash Aug 30 2020 3:03PM Hyperkalemia Aug 31 2020 2:03PM Squamous cell carcinoma of scalp Sep 07 2020 3:32PM Atrial fibrillation Sep 10 2020 8:48AM prison current use of anticoagulant Sep 10 2020 8:48AM Cellulitis, right foot Sep 16 2020 12:50PM Toe ulcer Sep 16 2020 12:50PM Type 2 diabetes mellitus Sep 16 2020 12:50PM CKD (chronic kidney disease), stage III Sep 16 2020 12:50PM Right second toe ulcer Sep 16 2020 2:19PM Atrial fibrillation Sep 20 2020 4:33PM 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 current use of anticoagulant Sep 20 2020 4:33PM Foot ulceration, right 2nd toe Sep 20 2020 4:03PM Cellulitis Sep 20 2020 4:03PM Cellulitis Sep 21 2020 12:19PM Cellulitis Sep 21 2020 4:05PM Cellulitis Sep 21 2020 9:02AM Toe ulcer Sep 21 2020 9:02AM Osteopathia Sep 21 2020 9:02AM Payers Insurance Name Company Name Plan Name Plan Number Policy Number [place] Group Number Start Date Medicare RHC Medicare RHC [id number] N/ A [place] [employer] [place] [employer] Compan [id number] N/A Medicare Part B Medicare Of [place] [id number] N/A Medicare Part A Medicare - Lab/Xray [id number] N/A [place] Family [employer]es Family Auto [id number] N/A [place] Family Cymraes Family [id number] N/A [place] [employer] [place] [employer] [id number] N/A History of Encounters Visit Date Visit Type Provider 09/21/2020 Laboratory Chaz Damon STRIPER MACHINE 09/20/2020 Office visit Jazmine Meade MD 09/16/2020 [...] Meade MD 03/02/2020 Office visit Chaz Damon STRIPER MACHINE 02/23/2020 Office visit Jazmine Meade MD 02/10/2020 [...] Jazmine Meade MD 03/22/2018 Laboratory Chaz Damon STRIPER MACHINE 03/15/2018 Laboratory Chaz Damon STRIPER MACHINE 03/13/2018 Office visit Jazmine Meade MD 03/08/2018 Laboratory Chaz Damon STRIPER MACHINE 03/07/2018 Voided Jazmine Meade MD 02/28/2018 Office visit Jazmine Meade MD
--- OUTSIDE RECORDS SUMMARY | 2020-10-29 14:24 | XMS REPORT ---
Author Ann Nevarez Organization [facility] Address [address] [place], [place] [id number] Care Team Providers Care Chain Offbearer Name Role Phone Jazmine Meade PCP Unavailable Jazmine Meade PreferredProvider Unavailable Allergies and Adverse Reactions Name Reaction Notes aspirin Atenolol Buprenex buspirone captopril furosemide Guaifenesin hydrochlorothiazide lisinopril morphine nitrofurantoin PENICILLINS terazosin celery [place] Hydrocodone Compound codeine sulfate Plan of Treatment [...] PM INR 2.10 secs 03/03/2020 1:31 PM [id number] NOT DETECTED 03/15/2020 3:32 PM INR 2.20 [...] PM INR 1.80 secs 05/27/2020 12:30 PM [id number] DETECTED 05/31/2020 11:28 AM INR 4.50 secs [...] Influenza 12/24/2018 sanofi pasteur PMC FLUZONE-HIGH DOSE [id number] In tramuscular Left Deltoid 12/24/2018 03/12/2021 135 Influenza 12/22/2019 sanofi pasteur PMC FLUZONE-HIGH DOSE [id number] In tramuscular Right Deltoid 12/22/2019 10/24/2018 135 Tdap 03/22/2020 GlaxOraMetrixine SKB BOOSTRIX [id number] Intramuscular Left Deltoid 03/22/2020 [...] 9:06AM Atrial Fibrillation Mar 15 2018 8:43AM skilled nursing use of anticoagulants Mar 15 2018 8:43AM Atrial Fibrillation Mar 22 2018 9:42AM 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 Mar 22 2018 9:42AM Epigastric pain Mar 25 2018 11:43AM Abdominal pain Mar 25 2018 11:05AM Atrial fibrillation, on long-term anticoagulation Mar 25 201 9 11:05AM INR (international normal ratio) abnormal, subtherapeutic Ja 2018 11:05AM Abdominal pain, improved Apr 01 2018 1:45PM Atrial Fibrillation Apr 01 2018 2:31PM 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 Apr 01 2018 2:31PM [...] use of anticoagulants Aug 07 2018 1:38PM skilled nursing use of anticoagulants Aug 21 2018 11:01AM Diabetes mellitus, type II Aug 21 2018 11:03AM Hypertension Aug 21 2018 10:26AM Type 2 diabetes mellitus Aug 21 2018 10:26AM Situational stress Aug 21 2018 10:26AM Atrial fibrillation Aug 21 2018 10:26AM 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 Sep 04 2018 9:37AM [...] 10:38AM Atrial Fibrillation Oct 23 2018 11:16AM 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 Oct 23 2018 11:16AM [...] 11:46AM Atrial Fibrillation Mar 19 2019 11:49AM 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 Mar 19 2019 11:49AM [...] 11:21AM Atrial Fibrillation Jul 17 2019 11:30AM 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 Jul 17 2019 11:30AM Hypertension Jul 17 2019 10:42AM Atrial fibrillation Jul 17 2019 10:42AM Type 2 diabetes mellitus Jul 17 2019 10:42AM Type 2 diabetes mellitus Aug 06 2019 1:36PM Hypertension Aug 06 2019 1:36PM Atrial fibrillation Aug 06 2019 1:36PM Atrial Fibrillation Aug 06 2019 2:00PM 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 Aug 06 2019 2:00PM Atrial Fibrillation Aug 20 2019 11:44AM skilled nursing use of anticoagulants Aug 20 2019 11:44AM [...] 4:00PM Atrial Fibrillation Sep 29 2019 1:55PM 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 Sep 29 2019 1:55PM Right leg ulcer Sep 29 2019 1:46PM Atrial fibrillation Sep 29 2019 1:46PM Edema Oct 13 2019 10:50AM UTI (urinary tract infection) Oct 13 2019 10:50AM Atrial Fibrillation Oct 13 2019 10:50AM 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 Oct 13 2019 10:50AM UTI (urinary tract infection) Oct 13 2019 10:15AM Diverticulitis Oct 13 2019 10:15AM Atrial fibrillation Oct 13 2019 10:15AM Renal insufficiency Oct 13 2019 10:15AM Fatigue Oct 13 2019 10:15AM Right Leg ulcer Oct 13 2019 10:15AM Atrial Fibrillation Oct 16 2019 2:47PM skilled nursing use of anticoagulants Oct 16 2019 2:47PM Atrial Fibrillation Oct 22 2019 4:29PM 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 Oct 22 2019 4:29PM Atrial Fibrillation Oct 30 2019 10:29AM 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 Oct 30 2019 10:29AM Atrial Fibrillation Nov 06 2019 3:05PM 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 Nov 06 2019 3:05PM Nonhealing skin ulcer Nov 11 2019 2:03PM Atrial Fibrillation Nov 11 2019 2:39PM 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 Nov 11 2019 2:39PM Non-healing wound of right lower extremity Nov 12 2019 4:22 PM Atrial Fibrillation Nov 25 2019 4:03PM 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 Nov 25 2019 4:03PM Atrial Fibrillation Dec 09 2019 1:41PM skilled nursing use of anticoagulants Dec 09 2019 1:41PM Atrial Fibrillation Dec 22 2019 10:47AM 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 Dec 22 2019 10:47AM Flu Vaccine Dec 22 2019 10:54AM Atrial Fibrillation Jan 07 2020 1:00PM 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 Jan 07 2020 1:00PM Atrial Fibrillation Jan 20 2020 11:44AM skilled nursing use of anticoagulants Jan 20 2020 11:44AM Atrial Fibrillation Feb 10 2020 11:51AM skilled nursing use of anticoagulants Feb 10 2020 11:51AM COPD (chronic obstructive pulmonary disease) Feb 23 2020 4: 04PM Atrial fibrillation Feb 23 2020 4:04PM Leg wound, right Feb 23 2020 4:04PM Atrial Fibrillation Feb 24 2020 5:38PM 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 Feb 24 2020 5:38PM Encounter for laboratory testing for COVID-19 virus Mar 03 1:18PM Close exposure to severe acute respiratory syndrome co ronavirus 2 (SARS-CoV-2) Mar 03 2020 1:18PM Cough Mar 03 2020 1:18PM Congestion of nasal sinus Mar 03 2020 1:18PM Atrial Fibrillation Mar 15 2020 3:32PM 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 Mar 15 2020 3:32PM [...] 12:17PM Atrial Fibrillation May 04 2020 2:26PM 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 May 04 2020 2:26PM Diabetes mellitus, type II May 04 2020 3:15PM Dysuria May 04 2020 3:15PM Type 2 diabetes mellitus May 04 2020 1:26PM Dysuria May 04 2020 1:26PM Atrial fibrillation May 04 2020 1:26PM Encounter for laboratory testing for COVID-19 virus May 27 2 021 4:54PM Cough May 27 2020 4:54PM Atrial Fibrillation May 31 2020 11:28AM 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 May 31 2020 11:28AM Follow up Jun 21 2020 2:09PM Diabetes mellitus, type II Jun 21 2020 4:36PM Fatigue Jun 21 2020 4:36PM COVID-19 Jun 21 2020 4:36PM Atrial Fibrillation Jun 22 2020 11:34AM 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 Jun 22 2020 11:34AM [...] 2:08PM Atrial Fibrillation Aug 25 2020 2:15PM 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 Aug 25 2020 2:15PM Rash Aug 25 2020 1:24PM Atrial fibrillation Aug 25 2020 1:24PM Anemia Aug 25 2020 1:24PM Rash Aug 30 2020 3:03PM Hyperkalemia Aug 31 2020 2:03PM Squamous cell carcinoma of scalp Sep 07 2020 3:32PM Atrial fibrillation Sep 10 2020 8:48AM 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 Sep 10 2020 8:48AM Cellulitis, right foot Sep 16 2020 12:50PM Toe ulcer Sep 16 2020 12:50PM Type 2 diabetes mellitus Sep 16 2020 12:50PM CKD (chronic kidney disease), stage III Sep 16 2020 12:50PM Right second toe ulcer Sep 16 2020 2:19PM Atrial fibrillation Sep 20 2020 4:33PM skilled nursing current use of anticoagulant Sep 20 2020 4:33PM Foot ulceration, right 2nd toe Sep 20 2020 4:03PM Cellulitis Sep 20 2020 4:03PM Cellulitis Sep 21 2020 12:19PM Cellulitis Sep 21 2020 4:05PM Osteomyelitis Sep 21 2020 9:02AM Payers Insurance Name Company Name Plan Name Plan Number Policy Number [place] Group Number Start Date Medicare RHC Medicare RHC [id number] N/ A [employer] Insurance [employer] Ins Compan [id number] N/A Medicare Part B Medicare Of [place] [id number] N/A Medicare Part A Medicare - Lab/Xray [id number] N/A [place] Family [employer] Auto [id number] N/A [place] Family [place] Family [id number] N/A [employer] Insurance [employer] Ins [id number] N/A History of Encounters Visit Date Visit Type Provider 09/27/2020 Office visit Jazmine Meade MD 09/21/2020 Laboratory Chaz Damon SENIOR COLDFUSION DEVELOPER 09/20/2020 Office visit Jazmine Meade MD 09/16/2020 [...] Jazmine Meade MD 03/22/2018 Laboratory Chaz Damon SENIOR COLDFUSION DEVELOPER 03/15/2018 Laboratory Chaz Damon SENIOR COLDFUSION DEVELOPER 03/13/2018 Office visit Jazmine Meade MD 03/08/2018 Laboratory Chaz Damon SENIOR COLDFUSION DEVELOPER 03/07/2018 Voided Jazmine Meade MD 02/28/2018 Office visit Jazmine Meade MD
--- OUTSIDE RECORDS SUMMARY | 2020-10-29 14:25 | XMS REPORT ---
Author Author Ann Damon Organization [facility] Address [address] [place], [place] [address] Care Team Providers Care Olive Packer Name Role Phone Chaz Damon PCP Jazmine Meade PreferredProvider Unavailable Allergies and Adverse Reactions Name Reaction Notes aspirin Atenolol Buprenex buspirone captopril furosemide Guaifenesin hydrochlorothiazide lisinopril morphine nitrofurantoin PENICILLINS terazosin celery [place] Pollen [place] Hydrocodone Compound codeine sulfate Plan of Treatment [...] PM INR 2.10 secs 03/03/2020 1:31 PM [id number] NOT DETECTED 03/15/2020 3:32 PM INR 2.20 [...] PM INR 1.80 secs 05/27/2020 12:30 PM [id number] DETECTED 05/31/2020 11:28 AM INR 4.50 secs [...] Influenza 12/24/2018 sanofi pasteur PMC FLUZONE-HIGH DOSE [id number] In tramuscular Left Deltoid 12/24/2018 03/12/2021 135 Influenza 12/22/2019 sanofi pasteur PMC FLUZONE-HIGH DOSE [id number] In tramuscular Right Deltoid 12/22/2019 10/24/2018 135 Tdap 03/22/2020 [employer] SKB BOOSTRIX [id number] Intramuscular Left Deltoid 03/22/2020 [...] 9:06AM Atrial Fibrillation Mar 15 2018 8:43AM 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 Mar 15 2018 8:43AM Atrial Fibrillation Mar 22 2018 9:42AM 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 Mar 22 2018 9:42AM Epigastric pain Mar 25 2018 11:43AM Abdominal pain Mar 25 2018 11:05AM Atrial fibrillation, on long-term anticoagulation Mar 25 201 9 11:05AM INR (international normal ratio) abnormal, subtherapeutic Ja n 2018 11:05AM Abdominal pain, improved Apr 01 2018 1:45PM Atrial Fibrillation Apr 01 2018 2:31PM long-term use of anticoagulants Apr 01 2018 2:31PM [...] 2:03PM Atrial Fibrillation Jul 16 2018 2:56PM long-term use of anticoagulants Jul 16 2018 2:56PM Atrial fibrillation Jul 24 2018 10:52AM Abdominal pain Jul 24 2018 10:52AM Abdominal pain Jul 24 2018 10:35AM Atrial fibrillation Jul 24 2018 10:35AM Abdominal pain Jul 24 2018 11:12AM Atrial Fibrillation Aug 07 2018 1:38PM long-term use of anticoagulants Aug 07 2018 1:38PM 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 Aug 21 2018 11:01AM Diabetes mellitus, type II Aug 21 2018 11:03AM Hypertension Aug 21 2018 10:26AM Type 2 diabetes mellitus Aug 21 2018 10:26AM Situational stress Aug 21 2018 10:26AM Atrial fibrillation Aug 21 2018 10:26AM 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 Sep 04 2018 9:37AM long-term use of anticoagulants Sep 18 2018 10:08AM [...] 10:38AM Atrial Fibrillation Oct 23 2018 11:16AM 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 Oct 23 2018 11:16AM Varicose vein of leg Nov 04 2018 11:04AM Skin avulsion Nov 04 2018 11:04AM Contact dermatitis Nov 04 2018 11:04AM Situational stress Nov 04 2018 11:04AM Diabetes mellitus, type II Nov 27 2018 10:58AM long-term (current) use of anticoagulants Nov 27 2018 [...] 1:45PM Atrial Fibrillation Dec 24 2018 1:46PM long-term use of anticoagulants Dec 24 2018 1:46PM Flu Vaccine Dec 24 2018 3:08PM Breast cancer screening by mammogram Mar 19 2019 10:46AM Hypertension Mar 19 2019 11:46AM T2DM (type 2 diabetes mellitus) Mar 19 2019 11:46AM Atrial Fibrillation Mar 19 2019 11:49AM 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 Mar 19 2019 11:49AM Type 2 diabetes mellitus Mar 19 2019 11:27AM Hypertension Mar 19 2019 11:27AM Atrial fibrillation Mar 19 2019 11:27AM Atrial Fibrillation Apr 17 2019 4:32PM long-term use of anticoagulants Apr 17 2019 4:32PM Atrial fibrillation Jul 17 2019 11:21AM Hypertension Jul 17 2019 11:21AM Diabetes mellitus, type II Jul 17 2019 11:21AM Atrial Fibrillation Jul 17 2019 11:30AM 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 Jul 17 2019 11:30AM Hypertension Jul 17 2019 10:42AM Atrial fibrillation Jul 17 2019 10:42AM Type 2 diabetes mellitus Jul 17 2019 10:42AM Type 2 diabetes mellitus Aug 06 2019 1:36PM Hypertension Aug 06 2019 1:36PM Atrial fibrillation Aug 06 2019 1:36PM Atrial Fibrillation Aug 06 2019 2:00PM 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 Aug 06 2019 2:00PM Atrial Fibrillation Aug 20 2019 11:44AM 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 Aug 20 2019 11:44AM Hypertension Aug 21 2019 11:40AM CAD (coronary artery disease) Aug 21 2019 11:40AM Atrial fibrillation Aug 21 2019 11:40AM long-term use of anticoagulants Sep 02 2019 1:00PM Bitten or stung by nonvenomous insect an d other nonvenomous arthropods, initial encounter Sep 02 2019 1:00PM Capillary hemangioma Sep 02 2019 11:39AM Skin ulceration Sep 02 2019 11:39AM Hypertension, Benign Essential Sep 22 2019 4:00PM Atrial Fibrillation Sep 29 2019 1:55PM long-term use of anticoagulants Sep 29 2019 1:55PM Right leg ulcer Sep 29 2019 1:46PM Atrial fibrillation Sep 29 2019 1:46PM Edema Oct 13 2019 10:50AM UTI (urinary tract infection) Oct 13 2019 10:50AM Atrial Fibrillation Oct 13 2019 10:50AM long-term use of anticoagulants Oct 13 2019 10:50AM UTI (urinary tract infection) Oct 13 2019 10:15AM Diverticulitis Oct 13 2019 10:15AM Atrial fibrillation Oct 13 2019 10:15AM Renal insufficiency Oct 13 2019 10:15AM Fatigue Oct 13 2019 10:15AM Right Leg ulcer Oct 13 2019 10:15AM Atrial Fibrillation Oct 16 2019 2:47PM 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 Oct 16 2019 2:47PM Atrial Fibrillation Oct 22 2019 4:29PM 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 Oct 22 2019 4:29PM Atrial Fibrillation Oct 30 2019 10:29AM 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 Oct 30 2019 10:29AM Atrial Fibrillation Nov 06 2019 3:05PM long-term use of anticoagulants Nov 06 2019 3:05PM Nonhealing skin ulcer Nov 11 2019 2:03PM Atrial Fibrillation Nov 11 2019 2:39PM 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 Nov 11 2019 2:39PM Non-healing wound of right lower extremity Nov 12 2019 4:22 PM Atrial Fibrillation Nov 25 2019 4:03PM long-term use of anticoagulants Nov 25 2019 4:03PM Atrial Fibrillation Dec 09 2019 1:41PM long-term use of anticoagulants Dec 09 2019 1:41PM Atrial Fibrillation Dec 22 2019 10:47AM long-term use of anticoagulants Dec 22 2019 10:47AM Flu Vaccine Dec 22 2019 10:54AM Atrial Fibrillation Jan 07 2020 1:00PM long-term use of anticoagulants Jan 07 2020 1:00PM Atrial Fibrillation Jan 20 2020 11:44AM 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 Jan 20 2020 11:44AM Atrial Fibrillation Feb 10 2020 11:51AM 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 Feb 10 2020 11:51AM COPD (chronic obstructive pulmonary disease) Feb 23 2020 4: 04PM Atrial fibrillation Feb 23 2020 4:04PM Leg wound, right Feb 23 2020 4:04PM Atrial Fibrillation Feb 24 2020 5:38PM 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 Feb 24 2020 5:38PM Encounter for laboratory testing for COVID-19 virus Mar 03 1:18PM Close exposure to severe acute respiratory syndrome co ronavirus 2 (SARS-CoV-2) Mar 03 2020 1:18PM Cough Mar 03 2020 1:18PM Congestion of nasal sinus Mar 03 2020 1:18PM Atrial Fibrillation Mar 15 2020 3:32PM long-term use of anticoagulants Mar 15 2020 3:32PM [...] 1:45PM Atrial Fibrillation Apr 22 2020 12:17PM long-term use of anticoagulants Apr 22 2020 12:17PM Atrial Fibrillation May 04 2020 2:26PM long-term use of anticoagulants May 04 2020 2:26PM Diabetes mellitus, type II May 04 2020 3:15PM Dysuria May 04 2020 3:15PM Type 2 diabetes mellitus May 04 2020 1:26PM Dysuria May 04 2020 1:26PM Atrial fibrillation May 04 2020 1:26PM Encounter for laboratory testing for COVID-19 virus May 27 4:54PM Cough May 27 2020 4:54PM Atrial Fibrillation May 31 2020 11:28AM long-term use of anticoagulants May 31 2020 11:28AM Follow up Jun 21 2020 2:09PM Diabetes mellitus, type II Jun 21 2020 4:36PM Fatigue Jun 21 2020 4:36PM COVID-19 Jun 21 2020 4:36PM Atrial Fibrillation Jun 22 2020 11:34AM long-term use of anticoagulants Jun 22 2020 11:34AM [...] Atrial Fibrillation Aug 25 2020 2:15PM 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 Aug 25 2020 2:15PM Rash Aug 25 2020 1:24PM Atrial fibrillation Aug 25 2020 1:24PM Anemia Aug 25 2020 1:24PM Rash Aug 30 2020 3:03PM Hyperkalemia Aug 31 2020 2:03PM Squamous cell carcinoma of scalp Sep 07 2020 3:32PM Atrial fibrillation Sep 10 2020 8:48AM long-term current use of anticoagulant Sep 10 2020 8:48AM Cellulitis, right foot Sep 16 2020 12:50PM Toe ulcer Sep 16 2020 12:50PM Type 2 diabetes mellitus Sep 16 2020 12:50PM CKD (chronic kidney disease), stage III Sep 16 2020 12:50PM Right second toe ulcer Sep 16 2020 2:19PM Atrial fibrillation Sep 20 2020 4:33PM 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 Sep 20 2020 4:33PM Foot ulceration, right 2nd toe Sep 20 2020 4:03PM Cellulitis Sep 20 2020 4:03PM Cellulitis Sep 21 2020 12:19PM Cellulitis Sep 21 2020 4:05PM Payers Insurance Name Company Name Plan Name Plan Number Policy Number [place] Group Number Start Date Medicare RHC Medicare RHC [id number] N/ A [employer] Ins Compan [id number] N/A Medicare Part B Medicare Of [place] [id number] N/A Medicare Part A Medicare - Lab/Xray [id number] N/A [place] Auto [id number] N/A [place] Family [place] Family [id number] N/A [employer] Ins [id number] N/A History of Encounters Visit Date Visit Type Provider 09/21/2020 Laboratory Chaz Damon ADVANCED REGISTERED NURSE 09/20/2020 Office visit Jazmine Meade MD 09/16/2020 [...] Meade MD 03/02/2020 Office visit Chaz Damon ADVANCED REGISTERED NURSE 02/23/2020 Office visit Jazmine Meade MD [...] Jazmine Meade MD 03/22/2018 Laboratory Chaz Damon ADVANCED REGISTERED NURSE 03/15/2018 Laboratory Chaz Damon ADVANCED REGISTERED NURSE 03/13/2018 Office visit Jazmine Meade MD 03/08/2018 Laboratory Chaz Damon ADVANCED REGISTERED NURSE 03/07/2018 Voided Jazmine Meade MD 02/28/2018 Office visit Jazmine Meade MD
--- OUTSIDE RECORDS SUMMARY | 2020-10-29 14:25 | XMS REPORT ---
Author Ann Nevarez Organization [facility] Address [address] [place], [place] [id number] Care Team Providers Care Rn Teacher Name Role Phone Jazmine Meade PCP Unavailable Jazmine Meade PreferredProvider Unavailable Allergies and Adverse Reactions Name Reaction Notes aspirin Atenolol Buprenex buspirone captopril furosemide Guaifenesin hydrochlorothiazide lisinopril morphine nitrofurantoin PENICILLINS terazosin celery [place] Hydrocodone Compound codeine sulfate Plan of Treatment [...] 08/25/2020 12:00 AM BMP 08/31/2020 12:00 AM Medications [...] Reviewed 09/20/2020 4:33 PM PROTHROMBIN TIME Reviewed Results Summary Date and Description Results 02/28/2018 [...] PM INR 2.10 secs 03/03/2020 1:31 PM [id number] NOT DETECTED 03/15/2020 3:32 PM INR 2.20 [...] PM INR 1.80 secs 05/27/2020 12:30 PM [id number] DETECTED 05/31/2020 11:28 AM INR 4.50 secs [...] Influenza 12/24/2018 sanofi pasteur PMC FLUZONE-HIGH DOSE [id number] In tramuscular Left Deltoid 12/24/2018 03/12/2021 135 Influenza 12/22/2019 sanofi pasteur PMC FLUZONE-HIGH DOSE [id number] In tramuscular Right Deltoid 12/22/2019 10/24/2018 135 Tdap 03/22/2020 GlaxoSmithKline SKB [id number] Intramuscular Left Deltoid 03/22/2020 [...] 9:06AM Atrial Fibrillation Mar 15 2018 8:43AM halfway use of anticoagulants Mar 15 2018 8:43AM Atrial Fibrillation Mar 22 2018 9:42AM rn long term care use of anticoagulants Mar 22 2018 9:42AM Epigastric pain Mar 25 2018 11:43AM Abdominal pain Mar 25 2018 11:05AM Atrial fibrillation, on long-term anticoagulation Mar 25 201 9 11:05AM INR (international normal ratio) abnormal, subtherapeutic 2018 11:05AM Abdominal pain, improved Apr 01 2018 1:45PM Atrial Fibrillation Apr 01 2018 2:31PM halfway use of anticoagulants Apr 01 2018 2:31PM [...] 2:03PM Atrial Fibrillation Jul 16 2018 2:56PM rn long term care use of anticoagulants Jul 16 2018 2:56PM Atrial fibrillation Jul 24 2018 10:52AM Abdominal pain Jul 24 2018 10:52AM Abdominal pain Jul 24 2018 10:35AM Atrial fibrillation Jul 24 2018 10:35AM Abdominal pain Jul 24 2018 11:12AM Atrial Fibrillation Aug 07 2018 1:38PM rn long term care use of anticoagulants Aug 07 2018 1:38PM halfway use of anticoagulants Aug 21 2018 11:01AM Diabetes mellitus, type II Aug 21 2018 11:03AM Hypertension Aug 21 2018 10:26AM Type 2 diabetes mellitus Aug 21 2018 10:26AM Situational stress Aug 21 2018 10:26AM Atrial fibrillation Aug 21 2018 10:26AM rn long term care use of anticoagulants Sep 04 2018 9:37AM rn long term care use of anticoagulants Sep 18 2018 10:08AM [...] 10:38AM Atrial Fibrillation Oct 23 2018 11:16AM rn long term care use of anticoagulants Oct 23 2018 11:16AM Varicose vein of leg Nov 04 2018 11:04AM Skin avulsion Nov 04 2018 11:04AM Contact dermatitis Nov 04 2018 11:04AM Situational stress Nov 04 2018 11:04AM Diabetes mellitus, type II Nov 27 2018 10:58AM rn long term care (current) use of anticoagulants Nov 27 2018 [...] 1:45PM Atrial Fibrillation Dec 24 2018 1:46PM rn long term care use of anticoagulants Dec 24 2018 1:46PM Flu Vaccine Dec 24 2018 3:08PM Breast cancer screening by mammogram Mar 19 2019 10:46AM Hypertension Mar 19 2019 11:46AM T2DM (type 2 diabetes mellitus) Mar 19 2019 11:46AM Atrial Fibrillation Mar 19 2019 11:49AM halfway use of anticoagulants Mar 19 2019 11:49AM Type 2 diabetes mellitus Mar 19 2019 11:27AM Hypertension Mar 19 2019 11:27AM Atrial fibrillation Mar 19 2019 11:27AM Atrial Fibrillation Apr 17 2019 4:32PM rn long term care use of anticoagulants Apr 17 2019 4:32PM Atrial fibrillation Jul 17 2019 11:21AM Hypertension Jul 17 2019 11:21AM Diabetes mellitus, type II Jul 17 2019 11:21AM Atrial Fibrillation Jul 17 2019 11:30AM halfway use of anticoagulants Jul 17 2019 11:30AM Hypertension Jul 17 2019 10:42AM Atrial fibrillation Jul 17 2019 10:42AM Type 2 diabetes mellitus Jul 17 2019 10:42AM Type 2 diabetes mellitus Aug 06 2019 1:36PM Hypertension Aug 06 2019 1:36PM Atrial fibrillation Aug 06 2019 1:36PM Atrial Fibrillation Aug 06 2019 2:00PM rn long term care use of anticoagulants Aug 06 2019 2:00PM Atrial Fibrillation Aug 20 2019 11:44AM halfway use of anticoagulants Aug 20 2019 11:44AM Hypertension Aug 21 2019 11:40AM CAD (coronary artery disease) Aug 21 2019 11:40AM Atrial fibrillation Aug 21 2019 11:40AM halfway use of anticoagulants Sep 02 2019 1:00PM Bitten or stung by nonvenomous insect an d other nonvenomous arthropods, initial encounter Sep 02 2019 1:00PM Capillary hemangioma Sep 02 2019 11:39AM Skin ulceration Sep 02 2019 11:39AM Hypertension, Benign Essential Sep 22 2019 4:00PM Atrial Fibrillation Sep 29 2019 1:55PM rn long term care use of anticoagulants Sep 29 2019 1:55PM Right leg ulcer Sep 29 2019 1:46PM Atrial fibrillation Sep 29 2019 1:46PM Edema Oct 13 2019 10:50AM UTI (urinary tract infection) Oct 13 2019 10:50AM Atrial Fibrillation Oct 13 2019 10:50AM halfway use of anticoagulants Oct 13 2019 10:50AM UTI (urinary tract infection) Oct 13 2019 10:15AM Diverticulitis Oct 13 2019 10:15AM Atrial fibrillation Oct 13 2019 10:15AM Renal insufficiency Oct 13 2019 10:15AM Fatigue Oct 13 2019 10:15AM Right Leg ulcer Oct 13 2019 10:15AM Atrial Fibrillation Oct 16 2019 2:47PM rn long term care use of anticoagulants Oct 16 2019 2:47PM Atrial Fibrillation Oct 22 2019 4:29PM halfway use of anticoagulants Oct 22 2019 4:29PM Atrial Fibrillation Oct 30 2019 10:29AM halfway use of anticoagulants Oct 30 2019 10:29AM Atrial Fibrillation Nov 06 2019 3:05PM rn long term care use of anticoagulants Nov 06 2019 3:05PM Nonhealing skin ulcer Nov 11 2019 2:03PM Atrial Fibrillation Nov 11 2019 2:39PM halfway use of anticoagulants Nov 11 2019 2:39PM Non-healing wound of right lower extremity Nov 12 2019 4:22 PM Atrial Fibrillation Nov 25 2019 4:03PM halfway use of anticoagulants Nov 25 2019 4:03PM Atrial Fibrillation Dec 09 2019 1:41PM rn long term care use of anticoagulants Dec 09 2019 1:41PM Atrial Fibrillation Dec 22 2019 10:47AM halfway use of anticoagulants Dec 22 2019 10:47AM Flu Vaccine Dec 22 2019 10:54AM Atrial Fibrillation Jan 07 2020 1:00PM rn long term care use of anticoagulants Jan 07 2020 1:00PM Atrial Fibrillation Jan 20 2020 11:44AM rn long term care use of anticoagulants Jan 20 2020 11:44AM Atrial Fibrillation Feb 10 2020 11:51AM rn long term care use of anticoagulants Feb 10 2020 11:51AM COPD (chronic obstructive pulmonary disease) Feb 23 2020 4: 04PM Atrial fibrillation Feb 23 2020 4:04PM Leg wound, right Feb 23 2020 4:04PM Atrial Fibrillation Feb 24 2020 5:38PM rn long term care use of anticoagulants Feb 24 2020 5:38PM Encounter for laboratory testing for COVID-19 virus Mar 03 1:18PM Close exposure to severe acute respiratory syndrome co ronavirus 2 (SARS-CoV-2) Mar 03 2020 1:18PM Cough Mar 03 2020 1:18PM Congestion of nasal sinus Mar 03 2020 1:18PM Atrial Fibrillation Mar 15 2020 3:32PM halfway use of anticoagulants Mar 15 2020 3:32PM [...] 1:45PM Atrial Fibrillation Apr 22 2020 12:17PM rn long term care use of anticoagulants Apr 22 2020 12:17PM Atrial Fibrillation May 04 2020 2:26PM halfway use of anticoagulants May 04 2020 2:26PM Diabetes mellitus, type II May 04 2020 3:15PM Dysuria May 04 2020 3:15PM Type 2 diabetes mellitus May 04 2020 1:26PM Dysuria May 04 2020 1:26PM Atrial fibrillation May 04 2020 1:26PM Encounter for laboratory testing for COVID-19 virus May 27 2 021 4:54PM Cough May 27 2020 4:54PM Atrial Fibrillation May 31 2020 11:28AM rn long term care use of anticoagulants May 31 2020 11:28AM Follow up Jun 21 2020 2:09PM Diabetes mellitus, type II Jun 21 2020 4:36PM Fatigue Jun 21 2020 4:36PM COVID-19 Jun 21 2020 4:36PM Atrial Fibrillation Jun 22 2020 11:34AM halfway use of anticoagulants Jun 22 2020 11:34AM [...] 2:08PM Atrial Fibrillation Aug 25 2020 2:15PM rn long term care use of anticoagulants Aug 25 2020 2:15PM Rash Aug 25 2020 1:24PM Atrial fibrillation Aug 25 2020 1:24PM Anemia Aug 25 2020 1:24PM Rash Aug 30 2020 3:03PM Hyperkalemia Aug 31 2020 2:03PM Squamous cell carcinoma of scalp Sep 07 2020 3:32PM Atrial fibrillation Sep 10 2020 8:48AM halfway current use of anticoagulant Sep 10 2020 8:48AM Cellulitis, right foot Sep 16 2020 12:50PM Toe ulcer Sep 16 2020 12:50PM Type 2 diabetes mellitus Sep 16 2020 12:50PM CKD (chronic kidney disease), stage III Sep 16 2020 12:50PM Right second toe ulcer Sep 16 2020 2:19PM Atrial fibrillation Sep 20 2020 4:33PM halfway current use of anticoagulant Sep 20 2020 4:33PM Payers Insurance Name Company Name Plan Name Plan Number Policy Number [place] Group Number Start Date Medicare RHC Medicare RHC [id number] N/ A [employer] Compan [id number] N/A Medicare Part B Medicare [facility] [id number] N/A Medicare Part A Medicare - Lab/Xray [id number] N/A [place] Family [employer] Family Auto [id number] N/A [place] Family [place] Family [id number] N/A [employer] [id number] N/A History of Encounters Visit Date Visit Type Provider 09/20/2020 Office visit Jazmine Meade MD 09/16/2020 [...] David Tarangol A PRN 10/16/2019 Laboratory David Peterson A [...] Jazmine Meade MD 03/22/2018 Laboratory Chaz Damon LIDAR TECHNICIAN 03/15/2018 Laboratory Chaz Damon APRN 03/13/2018 Office visit Jazmine Meade MD 03/08/2018 Laboratory Chaz Damon APRN 03/07/2018 Voided Jazmine Meade MD 02/28/2018 Office visit Jazmine Meade MD
--- OUTSIDE RECORDS SUMMARY | 2020-10-29 14:25 | XMS REPORT ---
Author Ann Nevarez Organization [facility] Address [address] [place], [place] [id number] Care Team Providers Care Animal Rescuer Name Role Phone Jazmine Meade PCP Unavailable Jazmine Meade PreferredProvider Unavailable Allergies and Adverse Reactions Name Reaction Notes aspirin Atenolol Buprenex buspirone captopril furosemide Guaifenesin hydrochlorothiazide lisinopril morphine nitrofurantoin PENICILLINS terazosin celery [place] Hydrocodone Compound codeine sulfate Plan of Treatment [...] PM INR 2.10 secs 03/03/2020 1:31 PM [id number] NOT DETECTED 03/15/2020 3:32 PM INR 2.20 [...] PM INR 1.80 secs 05/27/2020 12:30 PM [id number] DETECTED 05/31/2020 11:28 AM INR 4.50 secs [...] Influenza 12/24/2018 sanofi pasteur PMC FLUZONE-HIGH DOSE [id number] In tramuscular Left Deltoid 12/24/2018 03/12/2021 135 Influenza 12/22/2019 sanofi pasteur PMC FLUZONE-HIGH DOSE [id number] In tramuscular Right Deltoid 12/22/2019 10/24/2018 135 [...] Atrial Fibrillation Mar 15 2018 8:43AM intermediate use of anticoagulants Mar 15 2018 8:43AM Atrial Fibrillation Mar 22 2018 9:42AM 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 Mar 22 2018 9:42AM Epigastric pain Mar 25 2018 11:43AM Abdominal pain Mar 25 2018 11:05AM Atrial fibrillation, on long-term anticoagulation Mar 25 201 9 11:05AM INR (international normal ratio) abnormal, subtherapeutic 2018 11:05AM Abdominal pain, improved Apr 01 2018 1:45PM Atrial Fibrillation Apr 01 2018 2:31PM intermediate use of anticoagulants Apr 01 2018 2:31PM [...] 2:03PM Atrial Fibrillation Jul 16 2018 2:56PM 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 Jul 16 2018 2:56PM Atrial fibrillation Jul 24 2018 10:52AM Abdominal pain Jul 24 2018 10:52AM Abdominal pain Jul 24 2018 10:35AM Atrial fibrillation Jul 24 2018 10:35AM Abdominal pain Jul 24 2018 11:12AM Atrial Fibrillation Aug 07 2018 1:38PM 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 Aug 07 2018 1:38PM intermediate use of anticoagulants Aug 21 2018 11:01AM Diabetes mellitus, type II Aug 21 2018 11:03AM Hypertension Aug 21 2018 10:26AM Type 2 diabetes mellitus Aug 21 2018 10:26AM Situational stress Aug 21 2018 10:26AM Atrial fibrillation Aug 21 2018 10:26AM 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 Sep 04 2018 9:37AM 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 Sep 18 2018 10:08AM [...] Fibrillation Oct 23 2018 11:16AM 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 Oct 23 2018 11:16AM Varicose vein of leg Nov 04 2018 11:04AM Skin avulsion Nov 04 2018 11:04AM Contact dermatitis Nov 04 2018 11:04AM Situational stress Nov 04 2018 11:04AM Diabetes mellitus, type II Nov 27 2018 10:58AM 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 Nov 27 2018 [...] Atrial Fibrillation Dec 24 2018 1:46PM 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 Dec 24 2018 1:46PM Flu Vaccine Dec 24 2018 3:08PM Breast cancer screening by mammogram Mar 19 2019 10:46AM Hypertension Mar 19 2019 11:46AM T2DM (type 2 diabetes mellitus) Mar 19 2019 11:46AM Atrial Fibrillation Mar 19 2019 11:49AM intermediate use of anticoagulants Mar 19 2019 11:49AM Type 2 diabetes mellitus Mar 19 2019 11:27AM Hypertension Mar 19 2019 11:27AM Atrial fibrillation Mar 19 2019 11:27AM Atrial Fibrillation Apr 17 2019 4:32PM 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 Apr 17 2019 4:32PM Atrial fibrillation Jul 17 2019 11:21AM Hypertension Jul 17 2019 11:21AM Diabetes mellitus, type II Jul 17 2019 11:21AM Atrial Fibrillation Jul 17 2019 11:30AM intermediate use of anticoagulants Jul 17 2019 11:30AM Hypertension Jul 17 2019 10:42AM Atrial fibrillation Jul 17 2019 10:42AM Type 2 diabetes mellitus Jul 17 2019 10:42AM Type 2 diabetes mellitus Aug 06 2019 1:36PM Hypertension Aug 06 2019 1:36PM Atrial fibrillation Aug 06 2019 1:36PM Atrial Fibrillation Aug 06 2019 2:00PM 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 Aug 06 2019 2:00PM Atrial Fibrillation Aug 20 2019 11:44AM intermediate use of anticoagulants Aug 20 2019 11:44AM Hypertension Aug 21 2019 11:40AM CAD (coronary artery disease) Aug 21 2019 11:40AM Atrial fibrillation Aug 21 2019 11:40AM intermediate use of anticoagulants Sep 02 2019 1:00PM Bitten or stung by nonvenomous insect an d other nonvenomous arthropods, initial encounter Sep 02 2019 1:00PM Capillary hemangioma Sep 02 2019 11:39AM Skin ulceration Sep 02 2019 11:39AM Hypertension, Benign Essential Sep 22 2019 4:00PM Atrial Fibrillation Sep 29 2019 1:55PM 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 Sep 29 2019 1:55PM Right leg ulcer Sep 29 2019 1:46PM Atrial fibrillation Sep 29 2019 1:46PM Edema Oct 13 2019 10:50AM UTI (urinary tract infection) Oct 13 2019 10:50AM Atrial Fibrillation Oct 13 2019 10:50AM intermediate use of anticoagulants Oct 13 2019 10:50AM UTI (urinary tract infection) Oct 13 2019 10:15AM Diverticulitis Oct 13 2019 10:15AM Atrial fibrillation Oct 13 2019 10:15AM Renal insufficiency Oct 13 2019 10:15AM Fatigue Oct 13 2019 10:15AM Right Leg ulcer Oct 13 2019 10:15AM Atrial Fibrillation Oct 16 2019 2:47PM 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 Oct 16 2019 2:47PM Atrial Fibrillation Oct 22 2019 4:29PM intermediate use of anticoagulants Oct 22 2019 4:29PM Atrial Fibrillation Oct 30 2019 10:29AM intermediate use of anticoagulants Oct 30 2019 10:29AM Atrial Fibrillation Nov 06 2019 3:05PM 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 Nov 06 2019 3:05PM Nonhealing skin ulcer Nov 11 2019 2:03PM Atrial Fibrillation Nov 11 2019 2:39PM intermediate use of anticoagulants Nov 11 2019 2:39PM Non-healing wound of right lower extremity Nov 12 2019 4:22 PM Atrial Fibrillation Nov 25 2019 4:03PM intermediate use of anticoagulants Nov 25 2019 4:03PM Atrial Fibrillation Dec 09 2019 1:41PM 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 Dec 09 2019 1:41PM Atrial Fibrillation Dec 22 2019 10:47AM intermediate use of anticoagulants Dec 22 2019 10:47AM Flu Vaccine Dec 22 2019 10:54AM Atrial Fibrillation Jan 07 2020 1:00PM 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 Jan 07 2020 1:00PM Atrial Fibrillation Jan 20 2020 11:44AM 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 Jan 20 2020 11:44AM Atrial Fibrillation Feb 10 2020 11:51AM 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 Feb 10 2020 11:51AM COPD (chronic obstructive pulmonary disease) Feb 23 2020 4: 04PM Atrial fibrillation Feb 23 2020 4:04PM Leg wound, right Feb 23 2020 4:04PM Atrial Fibrillation Feb 24 2020 5:38PM 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 Feb 24 2020 5:38PM Encounter for laboratory testing for COVID-19 virus Mar 03 1:18PM Close exposure to severe acute respiratory syndrome co ronavirus 2 (SARS-CoV-2) Mar 03 2020 1:18PM Cough Mar 03 2020 1:18PM Congestion of nasal sinus Mar 03 2020 1:18PM Atrial Fibrillation Mar 15 2020 3:32PM intermediate use of anticoagulants Mar 15 2020 3:32PM [...] Atrial Fibrillation Apr 22 2020 12:17PM 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 Apr 22 2020 12:17PM Atrial Fibrillation May 04 2020 2:26PM intermediate use of anticoagulants May 04 2020 2:26PM Diabetes mellitus, type II May 04 2020 3:15PM Dysuria May 04 2020 3:15PM Type 2 diabetes mellitus May 04 2020 1:26PM Dysuria May 04 2020 1:26PM Atrial fibrillation May 04 2020 1:26PM Encounter for laboratory testing for COVID-19 virus May 27 2 021 4:54PM Cough May 27 2020 4:54PM Atrial Fibrillation May 31 2020 11:28AM 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 May 31 2020 11:28AM Follow up Jun 21 2020 2:09PM Diabetes mellitus, type II Jun 21 2020 4:36PM Fatigue Jun 21 2020 4:36PM COVID-19 Jun 21 2020 4:36PM Atrial Fibrillation Jun 22 2020 11:34AM intermediate use of anticoagulants Jun 22 2020 11:34AM [...] Fibrillation Aug 25 2020 2:15PM 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 Aug 25 2020 2:15PM Rash Aug 25 2020 1:24PM Atrial fibrillation Aug 25 2020 1:24PM Anemia Aug 25 2020 1:24PM Rash Aug 30 2020 3:03PM Hyperkalemia Aug 31 2020 2:03PM Squamous cell carcinoma of scalp Sep 07 2020 3:32PM Atrial fibrillation Sep 10 2020 8:48AM intermediate current use of anticoagulant Sep 10 2020 8:48AM Cellulitis, right foot Sep 16 2020 12:50PM Toe ulcer Sep 16 2020 12:50PM Type 2 diabetes mellitus Sep 16 2020 12:50PM CKD (chronic kidney disease), stage III Sep 16 2020 12:50PM Right second toe ulcer Sep 16 2020 2:19PM Atrial fibrillation Sep 20 2020 4:33PM intermediate current use of anticoagulant Sep 20 2020 4:33PM Foot ulceration, right 2nd toe Sep 20 2020 4:03PM Cellulitis Sep 20 2020 4:03PM Payers Insurance Name Company Name Plan Name Plan Number Policy Number [place] Group Number Start Date Medicare RHC Medicare RHC [id number] N/ A [employer] Compan [id number] N/A Medicare Part B Medicare Of [place] [id number] N/A Medicare Part A Medicare - Lab/Xray [id number] N/A [place] Family [place] Family Auto [id number] N/A [place] Family [place] Family [id number] N/A [employer] [id number] N/A History of Encounters Visit Date Visit [...] Jazmine Meade MD 03/22/2020 Office visit Jazmine Medae MD 03/15/2020 Nurse visit Jazmine Meade MD 03/02/2020 Office visit Chza Damon APRN 02/23/2020 Office visit Jazmine Meade [...] Franco Frazell A PRN 10/16/2019 Laboratory David Franco [place] A PRN 10/13/2019 Office visit Jazmine [...] Ronnell Rizo NP 07/24/2018 Office visit Jazmine Medae MD 07/16/2018 Office visit Jazmine Meade MD 05/27/2018 Office visit Jazmine Meade MD 05/04/2018 Office visit Ronnell Rizo NP 04/16/2018 Office visit Jazmine Meade MD 04/01/2018 Office visit Jazmine Meade MD 03/25/2018 Office visit Jazmine Meade MD 03/22/2018 Laboratory 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
--- OUTSIDE RECORDS SUMMARY | 2020-10-29 14:26 | XMS REPORT ---
Author Ann Nevarez Organization [facility] Address [address] [place], [place] [id number] Care Team Providers Care Ingredient Handler Name Role Phone Jazmine Meade PCP Unavailable Jazmine Meade PreferredProvider Unavailable Allergies and Adverse Reactions Name Reaction Notes aspirin Atenolol Buprenex buspirone captopril furosemide Guaifenesin hydrochlorothiazide lisinopril morphine nitrofurantoin PENICILLINS terazosin celery [place] Pollen [place] Hydrocodone Compound codeine sulfate Plan of Treatment [...] HC BMI BSA BMI Percentile O2 Sat(%) 09/16/2020 12:38:00 PM 164 mm[Hg] 70 mm[Hg] [...] Reviewed 09/10/2020 8:48 AM PROTHROMBIN TIME Reviewed Results Summary Date and [...] PM INR 2.10 secs 03/03/2020 1:31 PM [id number] NOT DETECTED 03/15/2020 3:32 PM INR 2.20 [...] PM INR 1.80 secs 05/27/2020 12:30 PM [id number] DETECTED 05/31/2020 11:28 AM INR 4.50 secs [...] secs 09/10/2020 8:48 AM INR 2.30 secs History Of Immunizations Name [...] Influenza 12/24/2018 sanofi pasteur PMC FLUZONE-HIGH DOSE [id number] In tramuscular Left Deltoid 12/24/2018 03/12/2021 135 Influenza 12/22/2019 sanofi pasteur PMC FLUZONE-HIGH DOSE [id number] In tramuscular Right Deltoid 12/22/2019 10/24/2018 135 Tdap 03/22/2020 [employer] [id number] Intramuscular Left Deltoid 03/22/2020 [...] 9:06AM Atrial Fibrillation Mar 15 2018 8:43AM long-term use of anticoagulants Mar 15 2018 8:43AM Atrial Fibrillation Mar 22 2018 9:42AM long term use of anticoagulants Mar 22 2018 9:42AM [...] 2:03PM Atrial Fibrillation Jul 16 2018 2:56PM long term use of anticoagulants Jul 16 2018 2:56PM Atrial fibrillation Jul 24 2018 10:52AM Abdominal pain Jul 24 2018 10:52AM Abdominal pain Jul 24 2018 10:35AM Atrial fibrillation Jul 24 2018 10:35AM Abdominal pain Jul 24 2018 11:12AM Atrial Fibrillation Aug 07 2018 1:38PM long-term use of anticoagulants Aug 07 2018 1:38PM long-term use of anticoagulants Aug 21 2018 11:01AM Diabetes mellitus, type II Aug 21 2018 11:03AM Hypertension Aug 21 2018 10:26AM Type 2 diabetes mellitus Aug 21 2018 10:26AM Situational stress Aug 21 2018 10:26AM Atrial fibrillation Aug 21 2018 10:26AM long term use of anticoagulants Sep 04 2018 9:37AM [...] 10:38AM Atrial Fibrillation Oct 23 2018 11:16AM long term use of anticoagulants Oct 23 2018 11:16AM [...] 1:45PM Atrial Fibrillation Dec 24 2018 1:46PM long term use of anticoagulants Dec 24 2018 1:46PM Flu Vaccine Dec 24 2018 3:08PM Breast cancer screening by mammogram Mar 19 2019 10:46AM Hypertension Mar 19 2019 11:46AM T2DM (type 2 diabetes mellitus) Mar 19 2019 11:46AM Atrial Fibrillation Mar 19 2019 11:49AM long term use of anticoagulants Mar 19 2019 11:49AM Type 2 diabetes mellitus Mar 19 2019 11:27AM Hypertension Mar 19 2019 11:27AM Atrial fibrillation Mar 19 2019 11:27AM Atrial Fibrillation Apr 17 2019 4:32PM long term use of anticoagulants Apr 17 2019 4:32PM Atrial fibrillation Jul 17 2019 11:21AM Hypertension Jul 17 2019 11:21AM Diabetes mellitus, type II Jul 17 2019 11:21AM Atrial Fibrillation Jul 17 2019 11:30AM long-term use of anticoagulants Jul 17 2019 11:30AM Hypertension Jul 17 2019 10:42AM Atrial fibrillation Jul 17 2019 10:42AM Type 2 diabetes mellitus Jul 17 2019 10:42AM Type 2 diabetes mellitus Aug 06 2019 1:36PM Hypertension Aug 06 2019 1:36PM Atrial fibrillation Aug 06 2019 1:36PM Atrial Fibrillation Aug 06 2019 2:00PM long term use of anticoagulants Aug 06 2019 2:00PM Atrial Fibrillation Aug 20 2019 11:44AM long-term use of anticoagulants Aug 20 2019 11:44AM Hypertension Aug 21 2019 11:40AM CAD (coronary artery disease) Aug 21 2019 11:40AM Atrial fibrillation Aug 21 2019 11:40AM long term use of anticoagulants Sep 02 2019 1:00PM [...] 10:50AM Atrial Fibrillation Oct 13 2019 10:50AM long term use of anticoagulants Oct 13 2019 10:50AM UTI (urinary tract infection) Oct 13 2019 10:15AM Diverticulitis Oct 13 2019 10:15AM Atrial fibrillation Oct 13 2019 10:15AM Renal insufficiency Oct 13 2019 10:15AM Fatigue Oct 13 2019 10:15AM Right Leg ulcer Oct 13 2019 10:15AM Atrial Fibrillation Oct 16 2019 2:47PM long-term use of anticoagulants Oct 16 2019 2:47PM Atrial Fibrillation Oct 22 2019 4:29PM long term use of anticoagulants Oct 22 2019 4:29PM Atrial Fibrillation Oct 30 2019 10:29AM long term use of anticoagulants Oct 30 2019 10:29AM Atrial Fibrillation Nov 06 2019 3:05PM long-term use of anticoagulants Nov 06 2019 3:05PM Nonhealing skin ulcer Nov 11 2019 2:03PM Atrial Fibrillation Nov 11 2019 2:39PM long term use of anticoagulants Nov 11 2019 2:39PM Non-healing wound of right lower extremity Nov 12 2019 4:22 PM Atrial Fibrillation Nov 25 2019 4:03PM long-term use of anticoagulants Nov 25 2019 4:03PM Atrial Fibrillation Dec 09 2019 1:41PM long term use of anticoagulants Dec 09 2019 1:41PM Atrial Fibrillation Dec 22 2019 10:47AM long-term use of anticoagulants Dec 22 2019 10:47AM Flu Vaccine Dec 22 2019 10:54AM Atrial Fibrillation Jan 07 2020 1:00PM long-term use of anticoagulants Jan 07 2020 1:00PM Atrial Fibrillation Jan 20 2020 11:44AM long term use of anticoagulants Jan 20 2020 11:44AM Atrial Fibrillation Feb 10 2020 11:51AM long-term use of anticoagulants Feb 10 2020 11:51AM COPD (chronic obstructive pulmonary disease) Feb 23 2020 4: 04PM Atrial fibrillation Feb 23 2020 4:04PM Leg wound, right Feb 23 2020 4:04PM Atrial Fibrillation Feb 24 2020 5:38PM long-term use of anticoagulants Feb 24 2020 5:38PM Encounter for laboratory testing for COVID-19 virus Mar 03 020 1:18PM Close exposure to severe acute respiratory syndrome co ronavirus 2 (SARS-CoV-2) Mar 03 2020 1:18PM Cough Mar 03 2020 1:18PM Congestion of nasal sinus Mar 03 2020 1:18PM Atrial Fibrillation Mar 15 2020 3:32PM long term use of anticoagulants Mar 15 2020 3:32PM [...] 1:45PM Atrial Fibrillation Apr 22 2020 12:17PM long term use of anticoagulants Apr 22 2020 12:17PM [...] 4:36PM Atrial Fibrillation Jun 22 2020 11:34AM long term use of anticoagulants Jun 22 2020 11:34AM [...] 2:08PM Atrial Fibrillation Aug 25 2020 2:15PM long term use of anticoagulants Aug 25 2020 2:15PM Rash Aug 25 2020 1:24PM Atrial fibrillation Aug 25 2020 1:24PM Anemia Aug 25 2020 1:24PM Rash Aug 30 2020 3:03PM Hyperkalemia Aug 31 2020 2:03PM Squamous cell carcinoma of scalp Sep 07 2020 3:32PM Atrial fibrillation Sep 10 2020 8:48AM long term current use of anticoagulant Sep 10 2020 8:48AM Cellulitis, right foot Sep 16 2020 12:50PM Toe ulcer Sep 16 2020 12:50PM Type 2 diabetes mellitus Sep 16 2020 12:50PM CKD (chronic kidney disease), stage III Sep 16 2020 12:50PM Payers Insurance Name Company Name Plan Name Plan Number Policy Number [employer] Group Number Start Date Medicare RHC Medicare RHC [id number] N/ A [employer] Insurance [employer] Ins Compan [id number] N/A Medicare Part B Medicare Of [place] [id number] N/A Medicare Part A Medicare - Lab/Xray [id number] N/A Jamaican Family Jamaican Family Auto [id number] N/A Jamaican Family Jamaican Family [id number] N/A [employer] Insurance [employer] Ins [id number] N/A History of Encounters Visit Date Visit Type Provider 09/16/2020 Office visit Jazmine Meade MD 09/10/2020 [...] Meade MD 03/02/2020 Office visit Chaz Damon TINT LAYER 02/23/2020 Office visit Jazmine Meade MD 02/10/2020 Laboratory Jazmine Meade MD 01/20/2020 Laboratory Jazmine Meade MD 01/07/2020 Laboratory Jazmine Meade MD 12/22/2019 Laboratory Jazmine Meade MD 12/09/2019 Laboratory Jazmine Meade MD 11/25/2019 Laboratory Jazmine Meade MD 11/11/2019 Office visit Jazmine Meade MD 11/06/2019 Nurse visit Jazmine Meade MD 10/30/2019 Laboratory Jazmine Meade MD 10/22/2019 Laboratory David Poncezell A PRN 10/16/2019 Laboratory David Franco Frazell A PRN 10/13/2019 Office visit Jazmine Meade MD 09/29/2019 Office visit Jazmine Meade MD 09/22/2019 Nurse visit David Poncezell A PRN 09/02/2019 Office visit Jazmine Meade MD 08/21/2019 Office visit Jazmine Meade MD 08/20/2019 Laboratory Jazmine Meade MD 08/06/2019 Office visit Jazmine Meade MD 07/17/2019 Office visit Jazmine Meade MD 04/17/2019 Laboratory Ronnell Rizo PATTERN GRADER SUPERVISOR 04/08/2019 Voided Jazmine Meade MD 03/19/2019 Office visit Jazmine Meade MD 12/24/2018 Laboratory Jazmine Meade MD 12/19/2018 Office visit Jazmine Meade MD 12/12/2018 Procedures Sebastiantrenton Dentona DO 12/05/2018 Office visit Jazmine Meade MD 11/27/2018 Office visit Jazmine Meade MD 11/04/2018 Office visit Jazmine Meade MD 10/23/2018 Office visit Jazmine Meade MD 09/23/2018 Radiology Ronnell Rizo PATTERN GRADER SUPERVISOR 09/23/2018 Office visit 09/23/2018 Office visit Jazmine Meade MD 09/18/2018 Laboratory Jazmine Meade MD 09/04/2018 Laboratory Jazmine Meade MD 08/21/2018 Office visit Jazmine Meade MD 08/07/2018 Laboratory Jazmine Meade MD 07/24/2018 Radiology Ronnell Rizo PATTERN GRADER SUPERVISOR 07/24/2018 Office visit Jazmine Meade MD 07/16/2018 Office visit Jazmine Meade MD 05/27/2018 Office visit Jazmine Meade MD 05/04/2018 Office visit Ronnell Rizo PATTERN GRADER SUPERVISOR 04/16/2018 Office visit Jazmine Meade MD 04/01/2018 Office visit Jazmine Meade MD 03/25/2018 Office visit Jazmine Meade MD 03/22/2018 Laboratory Chaz Damon TINT LAYER 03/15/2018 Laboratory Chaz Damon TINT LAYER 03/13/2018 Office visit Jazmine Meade MD 03/08/2018 Laboratory Chaz Damon TINT LAYER 03/07/2018 Voided Jazmine Meade MD 02/28/2018 Office visit Jazmine Meade MD
--- OUTSIDE RECORDS SUMMARY | 2020-10-29 14:26 | XMS REPORT ---
Author Ann Nevarez Organization [facility] Address [address] [place], [place] [id number] Care Team Providers Care Medical Services Coordinator Name Role Phone Jazmine Meade PCP Unavailable Jazmine Meade PreferredProvider Unavailable Allergies and Adverse Reactions Name Reaction Notes aspirin Atenolol Buprenex buspirone captopril furosemide Guaifenesin hydrochlorothiazide lisinopril morphine nitrofurantoin PENICILLINS terazosin celery [place] Pollen [place] Hydrocodone Compound codeine sulfate Plan of Treatment [...] HC BMI BSA BMI Percentile O2 Sat(%) 08/30/2020 2:57:00 PM 130 mm[Hg] 78 mm[Hg] [...] PM INR 2.10 secs 03/03/2020 1:31 PM [id number] NOT DETECTED 03/15/2020 3:32 PM INR 2.20 [...] PM INR 1.80 secs 05/27/2020 12:30 PM [id number] DETECTED 05/31/2020 11:28 AM INR 4.50 secs [...] Influenza 12/24/2018 sanofi pasteur PMC FLUZONE-HIGH DOSE [id number] In tramuscular Left Deltoid 12/24/2018 03/12/2021 135 Influenza 12/22/2019 sanofi pasteur PMC FLUZONE-HIGH DOSE [id number] In tramuscular Right Deltoid 12/22/2019 10/24/2018 135 [...] 9:06AM Atrial Fibrillation Mar 15 2018 8:43AM 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 Mar 15 2018 8:43AM Atrial Fibrillation Mar 22 2018 9:42AM MCC use of anticoagulants Mar 22 2018 9:42AM Epigastric pain Mar 25 2018 11:43AM Abdominal pain Mar 25 2018 11:05AM Atrial fibrillation, on long-term anticoagulation Mar 25 201 9 11:05AM INR (international normal ratio) abnormal, subtherapeutic Ja 2018 11:05AM Abdominal pain, improved Apr 01 2018 1:45PM Atrial Fibrillation Apr 01 2018 2:31PM 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 Apr 01 2018 2:31PM [...] 2:03PM Atrial Fibrillation Jul 16 2018 2:56PM MCC use of anticoagulants Jul 16 2018 2:56PM Atrial fibrillation Jul 24 2018 10:52AM Abdominal pain Jul 24 2018 10:52AM Abdominal pain Jul 24 2018 10:35AM Atrial fibrillation Jul 24 2018 10:35AM Abdominal pain Jul 24 2018 11:12AM Atrial Fibrillation Aug 07 2018 1:38PM 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 Aug 07 2018 1:38PM MCC use of anticoagulants Aug 21 2018 11:01AM Diabetes mellitus, type II Aug 21 2018 11:03AM Hypertension Aug 21 2018 10:26AM Type 2 diabetes mellitus Aug 21 2018 10:26AM Situational stress Aug 21 2018 10:26AM Atrial fibrillation Aug 21 2018 10:26AM MCC use of anticoagulants Sep 04 2018 9:37AM MCC use of anticoagulants Sep 18 2018 10:08AM [...] 10:38AM Atrial Fibrillation Oct 23 2018 11:16AM 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 Oct 23 2018 11:16AM Varicose vein of leg Nov 04 2018 11:04AM Skin avulsion Nov 04 2018 11:04AM Contact dermatitis Nov 04 2018 11:04AM Situational stress Nov 04 2018 11:04AM Diabetes mellitus, type II Nov 27 2018 10:58AM MCC (current) use of anticoagulants Nov 27 2018 [...] 1:45PM Atrial Fibrillation Dec 24 2018 1:46PM MCC use of anticoagulants Dec 24 2018 1:46PM Flu Vaccine Dec 24 2018 3:08PM Breast cancer screening by mammogram Mar 19 2019 10:46AM Hypertension Mar 19 2019 11:46AM T2DM (type 2 diabetes mellitus) Mar 19 2019 11:46AM Atrial Fibrillation Mar 19 2019 11:49AM MCC use of anticoagulants Mar 19 2019 11:49AM Type 2 diabetes mellitus Mar 19 2019 11:27AM Hypertension Mar 19 2019 11:27AM Atrial fibrillation Mar 19 2019 11:27AM Atrial Fibrillation Apr 17 2019 4:32PM MCC use of anticoagulants Apr 17 2019 4:32PM Atrial fibrillation Jul 17 2019 11:21AM Hypertension Jul 17 2019 11:21AM Diabetes mellitus, type II Jul 17 2019 11:21AM Atrial Fibrillation Jul 17 2019 11:30AM 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 Jul 17 2019 11:30AM Hypertension Jul 17 2019 10:42AM Atrial fibrillation Jul 17 2019 10:42AM Type 2 diabetes mellitus Jul 17 2019 10:42AM Type 2 diabetes mellitus Aug 06 2019 1:36PM Hypertension Aug 06 2019 1:36PM Atrial fibrillation Aug 06 2019 1:36PM Atrial Fibrillation Aug 06 2019 2:00PM MCC use of anticoagulants Aug 06 2019 2:00PM Atrial Fibrillation Aug 20 2019 11:44AM MCC use of anticoagulants Aug 20 2019 11:44AM Hypertension Aug 21 2019 11:40AM CAD (coronary artery disease) Aug 21 2019 11:40AM Atrial fibrillation Aug 21 2019 11:40AM MCC use of anticoagulants Sep 02 2019 1:00PM Bitten or stung by nonvenomous insect an d other nonvenomous arthropods, initial encounter Sep 02 2019 1:00PM Capillary hemangioma Sep 02 2019 11:39AM Skin ulceration Sep 02 2019 11:39AM Hypertension, Benign Essential Sep 22 2019 4:00PM Atrial Fibrillation Sep 29 2019 1:55PM 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 Sep 29 2019 1:55PM Right leg ulcer Sep 29 2019 1:46PM Atrial fibrillation Sep 29 2019 1:46PM Edema Oct 13 2019 10:50AM UTI (urinary tract infection) Oct 13 2019 10:50AM Atrial Fibrillation Oct 13 2019 10:50AM 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 Oct 13 2019 10:50AM UTI (urinary tract infection) Oct 13 2019 10:15AM Diverticulitis Oct 13 2019 10:15AM Atrial fibrillation Oct 13 2019 10:15AM Renal insufficiency Oct 13 2019 10:15AM Fatigue Oct 13 2019 10:15AM Right Leg ulcer Oct 13 2019 10:15AM Atrial Fibrillation Oct 16 2019 2:47PM 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 Oct 16 2019 2:47PM Atrial Fibrillation Oct 22 2019 4:29PM MCC use of anticoagulants Oct 22 2019 4:29PM Atrial Fibrillation Oct 30 2019 10:29AM 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 Oct 30 2019 10:29AM Atrial Fibrillation Nov 06 2019 3:05PM 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 Nov 06 2019 3:05PM Nonhealing skin ulcer Nov 11 2019 2:03PM Atrial Fibrillation Nov 11 2019 2:39PM 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 Nov 11 2019 2:39PM Non-healing wound of right lower extremity Nov 12 2019 4:22 PM Atrial Fibrillation Nov 25 2019 4:03PM MCC use of anticoagulants Nov 25 2019 4:03PM Atrial Fibrillation Dec 09 2019 1:41PM 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 Dec 09 2019 1:41PM Atrial Fibrillation Dec 22 2019 10:47AM 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 Dec 22 2019 10:47AM Flu Vaccine Dec 22 2019 10:54AM Atrial Fibrillation Jan 07 2020 1:00PM MCC use of anticoagulants Jan 07 2020 1:00PM Atrial Fibrillation Jan 20 2020 11:44AM MCC use of anticoagulants Jan 20 2020 11:44AM Atrial Fibrillation Feb 10 2020 11:51AM 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 Feb 10 2020 11:51AM COPD (chronic obstructive pulmonary disease) Feb 23 2020 4: 04PM Atrial fibrillation Feb 23 2020 4:04PM Leg wound, right Feb 23 2020 4:04PM Atrial Fibrillation Feb 24 2020 5:38PM 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 Feb 24 2020 5:38PM Encounter for laboratory testing for COVID-19 virus Mar 03 1:18PM Close exposure to severe acute respiratory syndrome co ronavirus 2 (SARS-CoV-2) Mar 03 2020 1:18PM Cough Mar 03 2020 1:18PM Congestion of nasal sinus Mar 03 2020 1:18PM Atrial Fibrillation Mar 15 2020 3:32PM 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 Mar 15 2020 3:32PM [...] 1:45PM Atrial Fibrillation Apr 22 2020 12:17PM 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 Apr 22 2020 12:17PM Atrial Fibrillation May 04 2020 2:26PM MCC use of anticoagulants May 04 2020 2:26PM Diabetes mellitus, type II May 04 2020 3:15PM Dysuria May 04 2020 3:15PM Type 2 diabetes mellitus May 04 2020 1:26PM Dysuria May 04 2020 1:26PM Atrial fibrillation May 04 2020 1:26PM Encounter for laboratory testing for COVID-19 virus May 27 021 4:54PM Cough May 27 2020 4:54PM Atrial Fibrillation May 31 2020 11:28AM 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 May 31 2020 11:28AM Follow up Jun 21 2020 2:09PM Diabetes mellitus, type II Jun 21 2020 4:36PM Fatigue Jun 21 2020 4:36PM COVID-19 Jun 21 2020 4:36PM Atrial Fibrillation Jun 22 2020 11:34AM 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 Jun 22 2020 11:34AM [...] 2:08PM Atrial Fibrillation Aug 25 2020 2:15PM 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 Aug 25 2020 2:15PM Rash Aug 25 2020 1:24PM Atrial fibrillation Aug 25 2020 1:24PM Anemia Aug 25 2020 1:24PM Rash Aug 30 2020 3:03PM Hyperkalemia Aug 31 2020 2:03PM Squamous cell carcinoma of scalp Sep 07 2020 3:32PM Atrial fibrillation Sep 10 2020 8:48AM 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 Sep 10 2020 8:48AM Payers Insurance Name Company Name Plan Name Plan Number Policy Number [employer] Group Number Start Date Medicare RHC Medicare RHC [id number] N/ A [employer] Ins Compan [id number] N/A Medicare Part B Medicare Of [place] [id number] N/A Medicare Part A Medicare - Lab/Xray [id number] N/A Croatian Family Croatian Family Auto [id number] N/A Croatian Family Croatian Family [id number] N/A [employer] Insurance [employer] Ins [id number] N/A History of Encounters Visit Date Visit Type Provider 09/10/2020 Laboratory Jazmine Meade MD 08/30/2020 Office [...] Meade MD 03/02/2020 Office visit Chaz Damon ROLL OPERATOR 02/23/2020 Office visit Jazmine Meade MD [...] Jazmine Meade MD 09/23/2018 Radiology Ronnell Rizo CAN CLOSING MACHINE OPERATOR 09/23/2018 Office visit 09/23/2018 Office visit Jazmine Meade MD 09/18/2018 Laboratory Jazmine Meade MD 09/04/2018 Laboratory Jazmine Meade MD 08/21/2018 Office visit Jazmine Meade MD 08/07/2018 Laboratory Jazmine Meade MD 07/24/2018 Radiology Ronnell Rizo CAN CLOSING MACHINE OPERATOR 07/24/2018 Office visit Jazmine Meade MD 07/16/2018 Office visit Jazmine Meade MD 05/27/2018 Office visit Jazmine Meade MD 05/04/2018 Office visit Ronnell Rizo NP 04/16/2018 Office visit Jazmine Meade MD 04/01/2018 Office visit Jazmine Meade MD 03/25/2018 Office visit Jazmine Meade MD 03/22/2018 Laboratory Chaz Damon ROLL OPERATOR 03/15/2018 Laboratory Chaz Damon ROLL OPERATOR 03/13/2018 Office visit Jazmine Meade MD 03/08/2018 Laboratory Chaz Damon ROLL OPERATOR 03/07/2018 Voided Jazmine Meade MD 02/28/2018 Office visit Jazmine Meade MD
--- OUTSIDE RECORDS SUMMARY | 2020-10-29 14:26 | XMS REPORT ---
Author Ann Nevarez Organization [facility] Address [address] [place], [place] [id number] Care Team Providers Care Speeder Frame Tender Name Role Phone Jazmine Meade PCP Unavailable Jazmine Meade PreferredProvider Unavailable Allergies and Adverse Reactions Name Reaction Notes aspirin Atenolol Buprenex buspirone captopril furosemide Guaifenesin hydrochlorothiazide lisinopril morphine nitrofurantoin PENICILLINS terazosin celery [place] Hydrocodone Compound codeine sulfate Plan of Treatment [...] 08/25/2020 12:00 AM BMP 08/31/2020 12:00 AM CULTURE WOUND 09/16/2020 12:00 AM Medications Active Name Start Date [...] AM PROTHROMBIN TIME Reviewed 12/22/2019 12:00 AM [facility] MEDICARE - flu vaccine administratio n [...] PM INR 2.10 secs 03/03/2020 1:31 PM [id number] NOT DETECTED 03/15/2020 3:32 PM INR 2.20 [...] PM INR 1.80 secs 05/27/2020 12:30 PM [id number] DETECTED 05/31/2020 11:28 AM INR 4.50 secs [...] Influenza 12/24/2018 sanofi pasteur PMC FLUZONE-HIGH DOSE [id number] In tramuscular Left Deltoid 12/24/2018 03/12/2021 135 Influenza 12/22/2019 sanofi pasteur PMC FLUZONE-HIGH DOSE [id number] In tramuscular Right Deltoid 12/22/2019 10/24/2018 135 Tdap 03/22/2020 [employer] SKB BOOSTRIX [id number] Intramuscular Left Deltoid 03/22/2020 [...] 9:06AM Atrial Fibrillation Mar 15 2018 8:43AM alf use of anticoagulants Mar 15 2018 8:43AM Atrial Fibrillation Mar 22 2018 9:42AM roasterman use of anticoagulants Mar 22 2018 9:42AM Epigastric pain Mar 25 2018 11:43AM Abdominal pain Mar 25 2018 11:05AM Atrial fibrillation, on long-term anticoagulation Mar 25 201 9 11:05AM INR (international normal ratio) abnormal, subtherapeutic 2018 11:05AM Abdominal pain, improved Apr 01 2018 1:45PM Atrial Fibrillation Apr 01 2018 2:31PM roasterman use of anticoagulants Apr 01 2018 2:31PM [...] 2:03PM Atrial Fibrillation Jul 16 2018 2:56PM roasterman use of anticoagulants Jul 16 2018 2:56PM Atrial fibrillation Jul 24 2018 10:52AM Abdominal pain Jul 24 2018 10:52AM Abdominal pain Jul 24 2018 10:35AM Atrial fibrillation Jul 24 2018 10:35AM Abdominal pain Jul 24 2018 11:12AM Atrial Fibrillation Aug 07 2018 1:38PM alf use of anticoagulants Aug 07 2018 1:38PM alf use of anticoagulants Aug 21 2018 11:01AM Diabetes mellitus, type II Aug 21 2018 11:03AM Hypertension Aug 21 2018 10:26AM Type 2 diabetes mellitus Aug 21 2018 10:26AM Situational stress Aug 21 2018 10:26AM Atrial fibrillation Aug 21 2018 10:26AM roasterman use of anticoagulants Sep 04 2018 9:37AM alf use of anticoagulants Sep 18 2018 10:08AM [...] 10:38AM Atrial Fibrillation Oct 23 2018 11:16AM roasterman use of anticoagulants Oct 23 2018 11:16AM Varicose vein of leg Nov 04 2018 11:04AM Skin avulsion Nov 04 2018 11:04AM Contact dermatitis Nov 04 2018 11:04AM Situational stress Nov 04 2018 11:04AM Diabetes mellitus, type II Nov 27 2018 10:58AM alf (current) use of anticoagulants Nov 27 2018 [...] 1:45PM Atrial Fibrillation Dec 24 2018 1:46PM alf use of anticoagulants Dec 24 2018 1:46PM Flu Vaccine Dec 24 2018 3:08PM Breast cancer screening by mammogram Mar 19 2019 10:46AM Hypertension Mar 19 2019 11:46AM T2DM (type 2 diabetes mellitus) Mar 19 2019 11:46AM Atrial Fibrillation Mar 19 2019 11:49AM alf use of anticoagulants Mar 19 2019 11:49AM Type 2 diabetes mellitus Mar 19 2019 11:27AM Hypertension Mar 19 2019 11:27AM Atrial fibrillation Mar 19 2019 11:27AM Atrial Fibrillation Apr 17 2019 4:32PM roasterman use of anticoagulants Apr 17 2019 4:32PM Atrial fibrillation Jul 17 2019 11:21AM Hypertension Jul 17 2019 11:21AM Diabetes mellitus, type II Jul 17 2019 11:21AM Atrial Fibrillation Jul 17 2019 11:30AM roasterman use of anticoagulants Jul 17 2019 11:30AM Hypertension Jul 17 2019 10:42AM Atrial fibrillation Jul 17 2019 10:42AM Type 2 diabetes mellitus Jul 17 2019 10:42AM Type 2 diabetes mellitus Aug 06 2019 1:36PM Hypertension Aug 06 2019 1:36PM Atrial fibrillation Aug 06 2019 1:36PM Atrial Fibrillation Aug 06 2019 2:00PM roasterman use of anticoagulants Aug 06 2019 2:00PM Atrial Fibrillation Aug 20 2019 11:44AM alf use of anticoagulants Aug 20 2019 11:44AM Hypertension Aug 21 2019 11:40AM CAD (coronary artery disease) Aug 21 2019 11:40AM Atrial fibrillation Aug 21 2019 11:40AM roasterman use of anticoagulants Sep 02 2019 1:00PM Bitten or stung by nonvenomous insect an d other nonvenomous arthropods, initial encounter Sep 02 2019 1:00PM Capillary hemangioma Sep 02 2019 11:39AM Skin ulceration Sep 02 2019 11:39AM Hypertension, Benign Essential Sep 22 2019 4:00PM Atrial Fibrillation Sep 29 2019 1:55PM roasterman use of anticoagulants Sep 29 2019 1:55PM Right leg ulcer Sep 29 2019 1:46PM Atrial fibrillation Sep 29 2019 1:46PM Edema Oct 13 2019 10:50AM UTI (urinary tract infection) Oct 13 2019 10:50AM Atrial Fibrillation Oct 13 2019 10:50AM alf use of anticoagulants Oct 13 2019 10:50AM UTI (urinary tract infection) Oct 13 2019 10:15AM Diverticulitis Oct 13 2019 10:15AM Atrial fibrillation Oct 13 2019 10:15AM Renal insufficiency Oct 13 2019 10:15AM Fatigue Oct 13 2019 10:15AM Right Leg ulcer Oct 13 2019 10:15AM Atrial Fibrillation Oct 16 2019 2:47PM alf use of anticoagulants Oct 16 2019 2:47PM Atrial Fibrillation Oct 22 2019 4:29PM roasterman use of anticoagulants Oct 22 2019 4:29PM Atrial Fibrillation Oct 30 2019 10:29AM alf use of anticoagulants Oct 30 2019 10:29AM Atrial Fibrillation Nov 06 2019 3:05PM roasterman use of anticoagulants Nov 06 2019 3:05PM Nonhealing skin ulcer Nov 11 2019 2:03PM Atrial Fibrillation Nov 11 2019 2:39PM alf use of anticoagulants Nov 11 2019 2:39PM Non-healing wound of right lower extremity Nov 12 2019 4:22 PM Atrial Fibrillation Nov 25 2019 4:03PM roasterman use of anticoagulants Nov 25 2019 4:03PM Atrial Fibrillation Dec 09 2019 1:41PM alf use of anticoagulants Dec 09 2019 1:41PM Atrial Fibrillation Dec 22 2019 10:47AM roasterman use of anticoagulants Dec 22 2019 10:47AM Flu Vaccine Dec 22 2019 10:54AM Atrial Fibrillation Jan 07 2020 1:00PM alf use of anticoagulants Jan 07 2020 1:00PM Atrial Fibrillation Jan 20 2020 11:44AM alf use of anticoagulants Jan 20 2020 11:44AM Atrial Fibrillation Feb 10 2020 11:51AM alf use of anticoagulants Feb 10 2020 11:51AM COPD (chronic obstructive pulmonary disease) Feb 23 2020 4: 04PM Atrial fibrillation Feb 23 2020 4:04PM Leg wound, right Feb 23 2020 4:04PM Atrial Fibrillation Feb 24 2020 5:38PM roasterman use of anticoagulants Feb 24 2020 5:38PM Encounter for laboratory testing for COVID-19 virus Mar 03 1:18PM Close exposure to severe acute respiratory syndrome co ronavirus 2 (SARS-CoV-2) Mar 03 2020 1:18PM Cough Mar 03 2020 1:18PM Congestion of nasal sinus Mar 03 2020 1:18PM Atrial Fibrillation Mar 15 2020 3:32PM roasterman use of anticoagulants Mar 15 2020 3:32PM [...] 1:45PM Atrial Fibrillation Apr 22 2020 12:17PM roasterman use of anticoagulants Apr 22 2020 12:17PM Atrial Fibrillation May 04 2020 2:26PM roasterman use of anticoagulants May 04 2020 2:26PM Diabetes mellitus, type II May 04 2020 3:15PM Dysuria May 04 2020 3:15PM Type 2 diabetes mellitus May 04 2020 1:26PM Dysuria May 04 2020 1:26PM Atrial fibrillation May 04 2020 1:26PM Encounter for laboratory testing for COVID-19 virus May 27 4:54PM Cough May 27 2020 4:54PM Atrial Fibrillation May 31 2020 11:28AM roasterman use of anticoagulants May 31 2020 11:28AM Follow up Jun 21 2020 2:09PM Diabetes mellitus, type II Jun 21 2020 4:36PM Fatigue Jun 21 2020 4:36PM COVID-19 Jun 21 2020 4:36PM Atrial Fibrillation Jun 22 2020 11:34AM roasterman use of anticoagulants Jun 22 2020 11:34AM [...] 2:08PM Atrial Fibrillation Aug 25 2020 2:15PM alf use of anticoagulants Aug 25 2020 2:15PM Rash Aug 25 2020 1:24PM Atrial fibrillation Aug 25 2020 1:24PM Anemia Aug 25 2020 1:24PM Rash Aug 30 2020 3:03PM Hyperkalemia Aug 31 2020 2:03PM Squamous cell carcinoma of scalp Sep 07 2020 3:32PM Atrial fibrillation Sep 10 2020 8:48AM roasterman current use of anticoagulant Sep 10 2020 8:48AM Cellulitis, right foot Sep 16 2020 12:50PM Toe ulcer Sep 16 2020 12:50PM Type 2 diabetes mellitus Sep 16 2020 12:50PM CKD (chronic kidney disease), stage III Sep 16 2020 12:50PM Right second toe ulcer Sep 16 2020 2:19PM Payers Insurance Name Company Name Plan Name Plan Number Policy Number [place] Group Number Start Date Medicare RHC Medicare RHC [id number] N/ A [employer] Compan [id number] N/A Medicare Part B Medicare Of [place] [id number] N/A Medicare Part A Medicare - Lab/Xray [id number] N/A [place] Family [place] Family Auto [id number] N/A [place] Family [place] Family [id number] N/A [facility] [id number] N/A History of Encounters Visit Date Visit [...] Meade MD 03/02/2020 Office visit Chaz Damon PACKING ROOM INSPECTOR 02/23/2020 Office visit Jazmine Meade MD 02/10/2020 Laboratory Jazmine Meade MD 01/20/2020 Laboratory Jazmine Meade MD 01/07/2020 Laboratory Jazmine Meade MD 12/22/2019 Laboratory Jazmine Meade MD 12/09/2019 Laboratory Jazmine Meaed MD 11/25/2019 Laboratory Jazmine Meade MD 11/11/2019 Office visit Jazmine Meade MD 11/06/2019 Nurse visit Jazmine Meade MD 10/30/2019 Laboratory Jazmine Meade MD 10/22/2019 Laboratory David Poncezell A PRN 10/16/2019 Laboratory David Poncezell A [...] Jazmine Meade MD 03/22/2018 Laboratory Chaz Damon PACKING ROOM INSPECTOR 03/15/2018 Laboratory Chaz Damon PACKING ROOM INSPECTOR 03/13/2018 Office visit Jazmine Meade MD 03/08/2018 Laboratory Chaz Damon PACKING ROOM INSPECTOR 03/07/2018 Voided Jazmine Meade MD 02/28/2018 Office visit Jazmine Meade MD
--- OUTSIDE RECORDS SUMMARY | 2020-10-29 14:27 | XMS REPORT ---
Author Ann Nevarez [facility] Address [address] [place], [place] [id number] Care Team Providers Care Tierce Filler Name Role Phone Jazmine Meade PCP Unavailable Jazmine Meade PreferredProvider Unavailable Allergies and Adverse Reactions Name Reaction Notes aspirin Atenolol Buprenex buspirone captopril furosemide Guaifenesin hydrochlorothiazide lisinopril morphine nitrofurantoin PENICILLINS terazosin celery [place] Hydrocodone Compound codeine sulfate Plan of Treatment Planned Activity Comments Planned Date Planned Time Plan/Goal HGB A1C 12/05/2018 12:00 AM BMP 12/09/2018 12:00 AM PT/INR 12/24/2018 12:00 AM CBC W/ AUTO DIFF (RFLX MAN DIFF IF IND). 05/04/2020 12:00 AM COMPREHENSIVE METABOLIC PANEL 05/04/2020 12:00 AM HEMOGLOBIN A1C 05/04/2020 12:00 AM BASIC METABOLIC PANEL 07/26/2020 12:00 AM Fungal culture 08/25/2020 12:00 AM Medications Active Name Start Date [...] oral route once daily for 30 days terbinafine HCl 1 % topical cream 08/25/2020 09/08/2020 apply to the affected and surrounding areas of skin by topical route once daily for 14 days warfarin oral tablet 1 mg 08/30/2020 [...] route every 12 hours for 10 days Discontinued Name Start Date [...] AM PROTHROMBIN TIME Reviewed 12/22/2019 12:00 AM C MEDICARE - flu vaccine administratio n Reviewed [...] Reviewed 08/25/2020 2:19 PM PROTHROMBIN TIME Reviewed Results Summary Date [...] PM INR 2.10 secs 03/03/2020 1:31 PM [id number] NOT DETECTED 03/15/2020 3:32 PM INR 2.20 [...] PM INR 1.80 secs 05/27/2020 12:30 PM [id number] DETECTED 05/31/2020 11:28 AM INR 4.50 secs [...] IND 08/25/2020 2:19 PM INR 2.10 secs History Of Immunizations Name Date Admin [...] Influenza 12/24/2018 sanofi pasteur PMC FLUZONE-HIGH DOSE [id number] In tramuscular Left Deltoid 12/24/2018 03/12/2021 135 Influenza 12/22/2019 sanofi pasteur PMC FLUZONE-HIGH DOSE [id number] In tramuscular Right Deltoid 12/22/2019 10/24/2018 135 Tdap 03/22/2020 [employer] SKB BOOSTRIX [id number] Intramuscular Left Deltoid 03/22/2020 [...] Atrial Fibrillation Mar 15 2018 8:43AM 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 termite use of anticoagulants Mar 15 2018 8:43AM [...] 1:45PM Atrial Fibrillation Apr 01 2018 2:31PM 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 termite use of anticoagulants Apr 01 2018 2:31PM [...] 2:03PM Atrial Fibrillation Jul 16 2018 2:56PM 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 termite use of anticoagulants Jul 16 2018 2:56PM [...] Atrial fibrillation Aug 21 2018 10:26AM 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 termite use of anticoagulants Sep 04 2018 9:37AM 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 termite use of anticoagulants Sep 18 2018 10:08AM [...] Atrial Fibrillation Oct 23 2018 11:16AM 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 termite use of anticoagulants Oct 23 2018 11:16AM [...] Atrial Fibrillation Mar 19 2019 11:49AM 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 termite use of anticoagulants Mar 19 2019 11:49AM Type 2 diabetes mellitus Mar 19 2019 11:27AM Hypertension Mar 19 2019 11:27AM Atrial fibrillation Mar 19 2019 11:27AM Atrial Fibrillation Apr 17 2019 4:32PM 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 termite use of anticoagulants Apr 17 2019 4:32PM Atrial fibrillation Jul 17 2019 11:21AM Hypertension Jul 17 2019 11:21AM Diabetes mellitus, type II Jul 17 2019 11:21AM Atrial Fibrillation Jul 17 2019 11:30AM 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 termite use of anticoagulants Jul 17 2019 11:30AM Hypertension Jul 17 2019 10:42AM Atrial fibrillation Jul 17 2019 10:42AM Type 2 diabetes mellitus Jul 17 2019 10:42AM Type 2 diabetes mellitus Aug 06 2019 1:36PM Hypertension Aug 06 2019 1:36PM Atrial fibrillation Aug 06 2019 1:36PM Atrial Fibrillation Aug 06 2019 2:00PM 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 termite use of anticoagulants Aug 06 2019 2:00PM Atrial Fibrillation Aug 20 2019 11:44AM MCFP use of anticoagulants Aug 20 2019 11:44AM Hypertension Aug 21 2019 11:40AM CAD (coronary artery disease) Aug 21 2019 11:40AM Atrial fibrillation Aug 21 2019 11:40AM 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 termite use of anticoagulants Sep 02 2019 1:00PM Bitten or stung by nonvenomous insect an d other nonvenomous arthropods, initial encounter Sep 02 2019 1:00PM Capillary hemangioma Sep 02 2019 11:39AM Skin ulceration Sep 02 2019 11:39AM Hypertension, Benign Essential Sep 22 2019 4:00PM Atrial Fibrillation Sep 29 2019 1:55PM 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 termite use of anticoagulants Sep 29 2019 1:55PM Right leg ulcer Sep 29 2019 1:46PM Atrial fibrillation Sep 29 2019 1:46PM Edema Oct 13 2019 10:50AM UTI (urinary tract infection) Oct 13 2019 10:50AM Atrial Fibrillation Oct 13 2019 10:50AM 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 termite use of anticoagulants Oct 13 2019 10:50AM UTI (urinary tract infection) Oct 13 2019 10:15AM Diverticulitis Oct 13 2019 10:15AM Atrial fibrillation Oct 13 2019 10:15AM Renal insufficiency Oct 13 2019 10:15AM Fatigue Oct 13 2019 10:15AM Right Leg ulcer Oct 13 2019 10:15AM Atrial Fibrillation Oct 16 2019 2:47PM MCFP use of anticoagulants Oct 16 2019 2:47PM Atrial Fibrillation Oct 22 2019 4:29PM MCFP use of anticoagulants Oct 22 2019 4:29PM Atrial Fibrillation Oct 30 2019 10:29AM 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 termite use of anticoagulants Oct 30 2019 10:29AM Atrial Fibrillation Nov 06 2019 3:05PM 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 termite use of anticoagulants Nov 06 2019 3:05PM Nonhealing skin ulcer Nov 11 2019 2:03PM Atrial Fibrillation Nov 11 2019 2:39PM MCFP use of anticoagulants Nov 11 2019 2:39PM Non-healing wound of right lower extremity Nov 12 2019 4:22 PM Atrial Fibrillation Nov 25 2019 4:03PM 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 termite use of anticoagulants Nov 25 2019 4:03PM Atrial Fibrillation Dec 09 2019 1:41PM 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 termite use of anticoagulants Dec 09 2019 1:41PM Atrial Fibrillation Dec 22 2019 10:47AM MCFP use of anticoagulants Dec 22 2019 10:47AM Flu Vaccine Dec 22 2019 10:54AM Atrial Fibrillation Jan 07 2020 1:00PM MCFP use of anticoagulants Jan 07 2020 1:00PM Atrial Fibrillation Jan 20 2020 11:44AM MCFP use of anticoagulants Jan 20 2020 11:44AM Atrial Fibrillation Feb 10 2020 11:51AM MCFP use of anticoagulants Feb 10 2020 11:51AM COPD (chronic obstructive pulmonary disease) Feb 23 2020 4: 04PM Atrial fibrillation Feb 23 2020 4:04PM Leg wound, right Feb 23 2020 4:04PM Atrial Fibrillation Feb 24 2020 5:38PM 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 termite use of anticoagulants Feb 24 2020 5:38PM [...] 4:54PM Atrial Fibrillation May 31 2020 11:28AM MCFP use of anticoagulants May 31 2020 11:28AM [...] 2:08PM Atrial Fibrillation Aug 25 2020 2:15PM MCFP use of anticoagulants Aug 25 2020 2:15PM Rash Aug 25 2020 1:24PM Atrial fibrillation Aug 25 2020 1:24PM Anemia Aug 25 2020 1:24PM Rash Aug 30 2020 3:03PM Payers Insurance Name Company Name Plan Name Plan Number Policy Number [place] Group Number Start Date Medicare RHC Medicare RHC [id number] N/ A [place] [employer] [place] [employer] Ins Compan [id number] N/A Medicare Part B Medicare Of [place] [id number] N/A Medicare Part A Medicare - Lab/Xray [id number] N/A [place] Family [place] Family Auto [id number] N/A [place] Family [place] Family [id number] N/A [place] [employer] [place] [employer] Ins [id number] N/A History of Encounters Visit Date Visit Type Provider 08/30/2020 Office visit Jazmine Meade MD 08/25/2020 [...] Jazmine Meade MD 03/22/2018 Laboratory Chaz Damon CLIPMAN 03/15/2018 Laboratory Chaz Damon CLIPMAN 03/13/2018 Office visit Jazmine Meade MD 03/08/2018 Laboratory Chaz Damon CLIPMAN 03/07/2018 Voided Jazmine Meade MD 02/28/2018 Office visit Jazmine Meade MD
--- OUTSIDE RECORDS SUMMARY | 2020-10-29 14:27 | XMS REPORT ---
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 Name Role Phone Jazmine Meade PCP Unavailable Jazmine Meade PreferredProvider Unavailable Allergies and Adverse Reactions Name Reaction Notes aspirin Atenolol Buprenex buspirone captopril furosemide Guaifenesin hydrochlorothiazide lisinopril morphine nitrofurantoin PENICILLINS terazosin celery [place] Pollen [place] Hydrocodone Compound codeine sulfate Plan of [...] PM INR 2.10 secs 03/03/2020 1:31 PM [id number] NOT DETECTED 03/15/2020 3:32 PM INR 2.20 [...] PM INR 1.80 secs 05/27/2020 12:30 PM [id number] DETECTED 05/31/2020 11:28 AM INR 4.50 secs [...] Influenza 12/24/2018 sanofi pasteur PMC FLUZONE-HIGH DOSE [id number] In tramuscular Left Deltoid 12/24/2018 03/12/2021 135 Influenza 12/22/2019 [facility] PMC FLUZONE-HIGH DOSE [id number] In tramuscular Right Deltoid 12/22/2019 10/24/2018 135 Tdap 03/22/2020 VTEX SKB BOOSTRIX [id number] Intramuscular Left Deltoid 03/22/2020 [...] 9:06AM Atrial Fibrillation Mar 15 2018 8:43AM cardiology clinical nurse specialist use of anticoagulants Mar 15 2018 8:43AM Atrial Fibrillation Mar 22 2018 9:42AM cardiology clinical nurse specialist use of anticoagulants Mar 22 2018 9:42AM Epigastric pain Mar 25 2018 11:43AM Abdominal pain Mar 25 2018 11:05AM Atrial fibrillation, on long-term anticoagulation Mar 25 201 9 11:05AM INR (international normal ratio) abnormal, subtherapeutic Ja 2018 11:05AM Abdominal pain, improved Apr 01 2018 1:45PM Atrial Fibrillation Apr 01 2018 2:31PM longterm use of anticoagulants Apr 01 2018 2:31PM [...] 2:03PM Atrial Fibrillation Jul 16 2018 2:56PM cardiology clinical nurse specialist use of anticoagulants Jul 16 2018 2:56PM [...] 10:26AM Atrial fibrillation Aug 21 2018 10:26AM cardiology clinical nurse specialist use of anticoagulants Sep 04 2018 9:37AM cardiology clinical nurse specialist use of anticoagulants Sep 18 2018 10:08AM [...] mellitus, type II Nov 27 2018 10:58AM cardiology clinical nurse specialist (current) use of anticoagulants Nov 27 2018 [...] 1:45PM Atrial Fibrillation Dec 24 2018 1:46PM cardiology clinical nurse specialist use of anticoagulants Dec 24 2018 1:46PM [...] 11:27AM Atrial Fibrillation Apr 17 2019 4:32PM longterm use of anticoagulants Apr 17 2019 4:32PM Atrial fibrillation Jul 17 2019 11:21AM Hypertension Jul 17 2019 11:21AM Diabetes mellitus, type II Jul 17 2019 11:21AM Atrial Fibrillation Jul 17 2019 11:30AM cardiology clinical nurse specialist use of anticoagulants Jul 17 2019 11:30AM Hypertension Jul 17 2019 10:42AM Atrial fibrillation Jul 17 2019 10:42AM Type 2 diabetes mellitus Jul 17 2019 10:42AM Type 2 diabetes mellitus Aug 06 2019 1:36PM Hypertension Aug 06 2019 1:36PM Atrial fibrillation Aug 06 2019 1:36PM Atrial Fibrillation Aug 06 2019 2:00PM longterm use of anticoagulants Aug 06 2019 2:00PM Atrial Fibrillation Aug 20 2019 11:44AM cardiology clinical nurse specialist use of anticoagulants Aug 20 2019 11:44AM Hypertension Aug 21 2019 11:40AM CAD (coronary artery disease) Aug 21 2019 11:40AM Atrial fibrillation Aug 21 2019 11:40AM longterm use of anticoagulants Sep 02 2019 1:00PM Bitten or stung by nonvenomous insect an d other nonvenomous arthropods, initial encounter Sep 02 2019 1:00PM Capillary hemangioma Sep 02 2019 11:39AM Skin ulceration Sep 02 2019 11:39AM Hypertension, Benign Essential Sep 22 2019 4:00PM Atrial Fibrillation Sep 29 2019 1:55PM longterm use of anticoagulants Sep 29 2019 1:55PM Right leg ulcer Sep 29 2019 1:46PM Atrial fibrillation Sep 29 2019 1:46PM Edema Oct 13 2019 10:50AM UTI (urinary tract infection) Oct 13 2019 10:50AM Atrial Fibrillation Oct 13 2019 10:50AM cardiology clinical nurse specialist use of anticoagulants Oct 13 2019 10:50AM UTI (urinary tract infection) Oct 13 2019 10:15AM Diverticulitis Oct 13 2019 10:15AM Atrial fibrillation Oct 13 2019 10:15AM Renal insufficiency Oct 13 2019 10:15AM Fatigue Oct 13 2019 10:15AM Right Leg ulcer Oct 13 2019 10:15AM Atrial Fibrillation Oct 16 2019 2:47PM cardiology clinical nurse specialist use of anticoagulants Oct 16 2019 2:47PM Atrial Fibrillation Oct 22 2019 4:29PM cardiology clinical nurse specialist use of anticoagulants Oct 22 2019 4:29PM Atrial Fibrillation Oct 30 2019 10:29AM cardiology clinical nurse specialist use of anticoagulants Oct 30 2019 10:29AM Atrial Fibrillation Nov 06 2019 3:05PM longterm use of anticoagulants Nov 06 2019 3:05PM Nonhealing skin ulcer Nov 11 2019 2:03PM Atrial Fibrillation Nov 11 2019 2:39PM longterm use of anticoagulants Nov 11 2019 2:39PM Non-healing wound of right lower extremity Nov 12 2019 4:22 PM Atrial Fibrillation Nov 25 2019 4:03PM longterm use of anticoagulants Nov 25 2019 4:03PM Atrial Fibrillation Dec 09 2019 1:41PM longterm use of anticoagulants Dec 09 2019 1:41PM Atrial Fibrillation Dec 22 2019 10:47AM cardiology clinical nurse specialist use of anticoagulants Dec 22 2019 10:47AM Flu Vaccine Dec 22 2019 10:54AM Atrial Fibrillation Jan 07 2020 1:00PM cardiology clinical nurse specialist use of anticoagulants Jan 07 2020 1:00PM Atrial Fibrillation Jan 20 2020 11:44AM cardiology clinical nurse specialist use of anticoagulants Jan 20 2020 11:44AM Atrial Fibrillation Feb 10 2020 11:51AM longterm use of anticoagulants Feb 10 2020 11:51AM COPD (chronic obstructive pulmonary disease) Feb 23 2020 4: 04PM Atrial fibrillation Feb 23 2020 4:04PM Leg wound, right Feb 23 2020 4:04PM Atrial Fibrillation Feb 24 2020 5:38PM longterm use of anticoagulants Feb 24 2020 5:38PM Encounter for laboratory testing for COVID-19 virus Mar 03 2 020 1:18PM Close exposure to severe acute respiratory syndrome co ronavirus 2 (SARS-CoV-2) Mar 03 2020 1:18PM Cough Mar 03 2020 1:18PM Congestion of nasal sinus Mar 03 2020 1:18PM Atrial Fibrillation Mar 15 2020 3:32PM cardiology clinical nurse specialist use of anticoagulants Mar 15 2020 3:32PM [...] 1:45PM Atrial Fibrillation Apr 22 2020 12:17PM cardiology clinical nurse specialist use of anticoagulants Apr 22 2020 12:17PM [...] 4:54PM Atrial Fibrillation May 31 2020 11:28AM cardiology clinical nurse specialist use of anticoagulants May 31 2020 11:28AM Follow up Jun 21 2020 2:09PM Diabetes mellitus, type II Jun 21 2020 4:36PM Fatigue Jun 21 2020 4:36PM COVID-19 Jun 21 2020 4:36PM Atrial Fibrillation Jun 22 2020 11:34AM cardiology clinical nurse specialist use of anticoagulants Jun 22 2020 11:34AM [...] 2:08PM Atrial Fibrillation Aug 25 2020 2:15PM cardiology clinical nurse specialist use of anticoagulants Aug 25 2020 2:15PM Rash Aug 25 2020 1:24PM Atrial fibrillation Aug 25 2020 1:24PM Anemia Aug 25 2020 1:24PM Rash Aug 30 2020 3:03PM Hyperkalemia Aug 31 2020 2:03PM Squamous cell carcinoma of scalp Sep 07 2020 3:32PM Payers Insurance Name Company Name Plan Name Plan Number Policy Number [place] Group Number Start Date Medicare RHC Medicare RHC [id number] N/ A [employer] [place] [employer] Ins Compan [id number] N/A Medicare Part B Medicare Of [place] [id number] N/A Medicare Part A Medicare - Lab/Xray [id number] N/A Solomon Islander Family [place] Islander Family Auto [id number] N/A [place] Family Solomon Islander Family [id number] N/A [employer] Ins [id number] N/A History of Encounters Visit Date Visit [...] Meade MD 03/02/2020 Office visit Chaz Damon COMMUNITY RELATIONS OFFICER 02/23/2020 Office visit Jazmine Meade MD 02/10/2020 [...] Jazmine Meade MD 03/22/2018 Laboratory Chaz Damon COMMUNITY RELATIONS OFFICER 03/15/2018 Laboratory Chaz Damon COMMUNITY RELATIONS OFFICER 03/13/2018 Office visit Jazmine Meade MD 03/08/2018 Laboratory Chaz Damon COMMUNITY RELATIONS OFFICER 03/07/2018 Voided Jazmine Meade MD 02/28/2018 Office visit Jazmine Meade MD
--- OUTSIDE RECORDS SUMMARY | 2020-10-29 14:27 | XMS REPORT ---
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 Attraction Worker Name Role Phone Jazmine Meade PCP Unavailable Jazmine Meade PreferredProvider Unavailable Allergies and Adverse Reactions Name Reaction Notes aspirin Atenolol Buprenex buspirone captopril furosemide Guaifenesin hydrochlorothiazide lisinopril morphine nitrofurantoin PENICILLINS terazosin celery [place] Pollen [place] Hydrocodone Compound codeine sulfate Plan of Treatment [...] PM INR 2.10 secs 03/03/2020 1:31 PM [id number] NOT DETECTED 03/15/2020 3:32 PM INR 2.20 [...] PM INR 1.80 secs 05/27/2020 12:30 PM [id number] DETECTED 05/31/2020 11:28 AM INR 4.50 secs [...] Influenza 12/24/2018 sanofi pasteur PMC FLUZONE-HIGH DOSE [id number] In tramuscular Left Deltoid 12/24/2018 03/12/2021 135 Influenza 12/22/2019 [facility] PMC FLUZONE-HIGH DOSE [id number] In tramuscular Right Deltoid 12/22/2019 10/24/2018 135 Tdap 03/22/2020 [employer] SKB BOOSTRIX [id number] Intramuscular Left Deltoid 03/22/2020 [...] 9:06AM Atrial Fibrillation Mar 15 2018 8:43AM buttermaker use of anticoagulants Mar 15 2018 8:43AM Atrial Fibrillation Mar 22 2018 9:42AM buttermaker use of anticoagulants Mar 22 2018 9:42AM Epigastric pain Mar 25 2018 11:43AM Abdominal pain Mar 25 2018 11:05AM Atrial fibrillation, on long-term anticoagulation Mar 25 201 9 11:05AM INR (international normal ratio) abnormal, subtherapeutic Ja 2018 11:05AM Abdominal pain, improved Apr 01 2018 1:45PM Atrial Fibrillation Apr 01 2018 2:31PM half-way use of anticoagulants Apr 01 2018 2:31PM [...] 2:03PM Atrial Fibrillation Jul 16 2018 2:56PM buttermaker use of anticoagulants Jul 16 2018 2:56PM Atrial fibrillation Jul 24 2018 10:52AM Abdominal pain Jul 24 2018 10:52AM Abdominal pain Jul 24 2018 10:35AM Atrial fibrillation Jul 24 2018 10:35AM Abdominal pain Jul 24 2018 11:12AM Atrial Fibrillation Aug 07 2018 1:38PM half-way use of anticoagulants Aug 07 2018 1:38PM half-way use of anticoagulants Aug 21 2018 11:01AM Diabetes mellitus, type II Aug 21 2018 11:03AM Hypertension Aug 21 2018 10:26AM Type 2 diabetes mellitus Aug 21 2018 10:26AM Situational stress Aug 21 2018 10:26AM Atrial fibrillation Aug 21 2018 10:26AM buttermaker use of anticoagulants Sep 04 2018 9:37AM buttermaker use of anticoagulants Sep 18 2018 10:08AM [...] 10:38AM Atrial Fibrillation Oct 23 2018 11:16AM half-way use of anticoagulants Oct 23 2018 11:16AM Varicose vein of leg Nov 04 2018 11:04AM Skin avulsion Nov 04 2018 11:04AM Contact dermatitis Nov 04 2018 11:04AM Situational stress Nov 04 2018 11:04AM Diabetes mellitus, type II Nov 27 2018 10:58AM buttermaker (current) use of anticoagulants Nov 27 2018 [...] 1:45PM Atrial Fibrillation Dec 24 2018 1:46PM buttermaker use of anticoagulants Dec 24 2018 1:46PM Flu Vaccine Dec 24 2018 3:08PM Breast cancer screening by mammogram Mar 19 2019 10:46AM Hypertension Mar 19 2019 11:46AM T2DM (type 2 diabetes mellitus) Mar 19 2019 11:46AM Atrial Fibrillation Mar 19 2019 11:49AM half-way use of anticoagulants Mar 19 2019 11:49AM Type 2 diabetes mellitus Mar 19 2019 11:27AM Hypertension Mar 19 2019 11:27AM Atrial fibrillation Mar 19 2019 11:27AM Atrial Fibrillation Apr 17 2019 4:32PM half-way use of anticoagulants Apr 17 2019 4:32PM Atrial fibrillation Jul 17 2019 11:21AM Hypertension Jul 17 2019 11:21AM Diabetes mellitus, type II Jul 17 2019 11:21AM Atrial Fibrillation Jul 17 2019 11:30AM buttermaker use of anticoagulants Jul 17 2019 11:30AM Hypertension Jul 17 2019 10:42AM Atrial fibrillation Jul 17 2019 10:42AM Type 2 diabetes mellitus Jul 17 2019 10:42AM Type 2 diabetes mellitus Aug 06 2019 1:36PM Hypertension Aug 06 2019 1:36PM Atrial fibrillation Aug 06 2019 1:36PM Atrial Fibrillation Aug 06 2019 2:00PM half-way use of anticoagulants Aug 06 2019 2:00PM Atrial Fibrillation Aug 20 2019 11:44AM buttermaker use of anticoagulants Aug 20 2019 11:44AM Hypertension Aug 21 2019 11:40AM CAD (coronary artery disease) Aug 21 2019 11:40AM Atrial fibrillation Aug 21 2019 11:40AM half-way use of anticoagulants Sep 02 2019 1:00PM Bitten or stung by nonvenomous insect an d other nonvenomous arthropods, initial encounter Sep 02 2019 1:00PM Capillary hemangioma Sep 02 2019 11:39AM Skin ulceration Sep 02 2019 11:39AM Hypertension, Benign Essential Sep 22 2019 4:00PM Atrial Fibrillation Sep 29 2019 1:55PM half-way use of anticoagulants Sep 29 2019 1:55PM Right leg ulcer Sep 29 2019 1:46PM Atrial fibrillation Sep 29 2019 1:46PM Edema Oct 13 2019 10:50AM UTI (urinary tract infection) Oct 13 2019 10:50AM Atrial Fibrillation Oct 13 2019 10:50AM buttermaker use of anticoagulants Oct 13 2019 10:50AM UTI (urinary tract infection) Oct 13 2019 10:15AM Diverticulitis Oct 13 2019 10:15AM Atrial fibrillation Oct 13 2019 10:15AM Renal insufficiency Oct 13 2019 10:15AM Fatigue Oct 13 2019 10:15AM Right Leg ulcer Oct 13 2019 10:15AM Atrial Fibrillation Oct 16 2019 2:47PM buttermaker use of anticoagulants Oct 16 2019 2:47PM Atrial Fibrillation Oct 22 2019 4:29PM buttermaker use of anticoagulants Oct 22 2019 4:29PM Atrial Fibrillation Oct 30 2019 10:29AM buttermaker use of anticoagulants Oct 30 2019 10:29AM Atrial Fibrillation Nov 06 2019 3:05PM half-way use of anticoagulants Nov 06 2019 3:05PM Nonhealing skin ulcer Nov 11 2019 2:03PM Atrial Fibrillation Nov 11 2019 2:39PM half-way use of anticoagulants Nov 11 2019 2:39PM Non-healing wound of right lower extremity Nov 12 2019 4:22 PM Atrial Fibrillation Nov 25 2019 4:03PM half-way use of anticoagulants Nov 25 2019 4:03PM Atrial Fibrillation Dec 09 2019 1:41PM half-way use of anticoagulants Dec 09 2019 1:41PM Atrial Fibrillation Dec 22 2019 10:47AM buttermaker use of anticoagulants Dec 22 2019 10:47AM Flu Vaccine Dec 22 2019 10:54AM Atrial Fibrillation Jan 07 2020 1:00PM buttermaker use of anticoagulants Jan 07 2020 1:00PM Atrial Fibrillation Jan 20 2020 11:44AM buttermaker use of anticoagulants Jan 20 2020 11:44AM Atrial Fibrillation Feb 10 2020 11:51AM half-way use of anticoagulants Feb 10 2020 11:51AM COPD (chronic obstructive pulmonary disease) Feb 23 2020 4: 04PM Atrial fibrillation Feb 23 2020 4:04PM Leg wound, right Feb 23 2020 4:04PM Atrial Fibrillation Feb 24 2020 5:38PM half-way use of anticoagulants Feb 24 2020 5:38PM Encounter for laboratory testing for COVID-19 virus Mar 03 2 020 1:18PM Close exposure to severe acute respiratory syndrome co ronavirus 2 (SARS-CoV-2) Mar 03 2020 1:18PM Cough Mar 03 2020 1:18PM Congestion of nasal sinus Mar 03 2020 1:18PM Atrial Fibrillation Mar 15 2020 3:32PM buttermaker use of anticoagulants Mar 15 2020 3:32PM [...] 1:45PM Atrial Fibrillation Apr 22 2020 12:17PM buttermaker use of anticoagulants Apr 22 2020 12:17PM Atrial Fibrillation May 04 2020 2:26PM half-way use of anticoagulants May 04 2020 2:26PM Diabetes mellitus, type II May 04 2020 3:15PM Dysuria May 04 2020 3:15PM Type 2 diabetes mellitus May 04 2020 1:26PM Dysuria May 04 2020 1:26PM Atrial fibrillation May 04 2020 1:26PM Encounter for laboratory testing for COVID-19 virus May 27 4:54PM Cough May 27 2020 4:54PM Atrial Fibrillation May 31 2020 11:28AM buttermaker use of anticoagulants May 31 2020 11:28AM Follow up Jun 21 2020 2:09PM Diabetes mellitus, type II Jun 21 2020 4:36PM Fatigue Jun 21 2020 4:36PM COVID-19 Jun 21 2020 4:36PM Atrial Fibrillation Jun 22 2020 11:34AM buttermaker use of anticoagulants Jun 22 2020 11:34AM [...] 2:08PM Atrial Fibrillation Aug 25 2020 2:15PM buttermaker use of anticoagulants Aug 25 2020 2:15PM Rash Aug 25 2020 1:24PM Atrial fibrillation Aug 25 2020 1:24PM Anemia Aug 25 2020 1:24PM Rash Aug 30 2020 3:03PM Hyperkalemia Aug 31 2020 2:03PM Payers Insurance Name Company Name Plan Name Plan Number Policy Number [place] Group Number Start Date Medicare RHC Medicare RHC [id number] N/ A [employer] Insurance [employer] Ins Compan [id number] N/A Medicare Part B Medicare Of [place] [id number] N/A Medicare Part A Medicare - Lab/Xray [id number] N/A Sen[place]e Family Senegalese Family Auto [id number] N/A Sen[place]alese Family Senegalese Family [id number] N/A [employer] Insurance [employer] Ins [id number] N/A History of Encounters Visit Date Visit Type Provider 08/30/2020 Office visit Jazmine Meade MD 08/25/2020 Office visit Jazmine Meade MD 08/03/2020 Office visit Jazmine Meade MD 07/21/2020 Office visit Jzamine Meade MD 07/02/2020 Office visit Jazmine Meade [...] Meade MD 03/02/2020 Office visit Chaz Damon TEACHER DANCING 02/23/2020 Office visit Jazmine Meade MD 02/10/2020 Laboratory Jazmine Meade MD 01/20/2020 Laboratory Jazmine Meade MD 01/07/2020 Laboratory Jazmine Meade MD 12/22/2019 Laboratory Jazmine Meade MD 12/09/2019 Laboratory Jazmine Meade MD 11/25/2019 Laboratory Jazmine Meade MD 11/11/2019 Office visit Jazmine Meade MD 11/06/2019 Nurse visit Jazmine Meade MD 10/30/2019 Laboratory Jazmine Meade MD 10/22/2019 Laboratory Jimillyina LCydney Frazell A PRN 10/16/2019 Laboratory Jimillyina L. Frazell A PRN 10/13/2019 Office visit Jazmine Meade MD 09/29/2019 Office visit Jazmine Meade MD 09/22/2019 Nurse visit David L. Frazell A PRN 09/02/2019 Office visit [...] Jazmine Meade MD 03/22/2018 Laboratory Chaz Damon TEACHER DANCING 03/15/2018 Laboratory Chaz Damon APRN 03/13/2018 Office visit Jazmine Meade MD 03/08/2018 Laboratory Chaz Damon TEACHER DANCING 03/07/2018 Voided Jazmine Meade MD 02/28/2018 Office visit Jazmine Meade MD
--- NOTE | 2020-10-29 14:33 | Progress Note-Post Operative ---
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
--- NOTE | 2020-10-29 14:33 | Anesthesia-General Post-Op ---
General Patient Condition Mental Status/LOC: Same as Preop Cardiovascular: Satisfactory Nausea/Vomiting: Absent Respiratory: Satisfactory Pain: Controlled Complications: Absent Post Op Complications Complications None Follow Up Care/Instructions Patient Instructions None needed. Anesthesia/Patient Condition Patient Condition Patient is doing well, no complaints, stable vital signs, no apparent adverse anesthesia problems. JIMMY FERRARI DO Oct 29, 2020 14:33
[2020-10-29] MEDS ORDERED: CLIN150C2 PO (14:37)
[2020-10-29] MEDS ORDERED: ONDANSETRON 4 MG/2 ML (SDV) Z0FRAN IVP PRN (14:45)
[2020-10-29] MEDS ORDERED: LACTATED RINGERS 1,000 ML IV SCH (14:45)
--- NOTE | 2020-10-29 16:39 | Physical Therapy Ortho Eval ---
PT Orthopedic Evaluation Type of Surgery right foot 2nd toe amputation, partial weight bearing Prior Level of Function Current Living Status: Locomotion (Upon Admit): Straight Cane Established Durable Medical Eq: Front Wheeled Walker Subjective Subjective Patient in bed pre tx, agrees to PT, has no complaints of pain. Entry Into Home: Stairs Without Railing Steps Into Home: 1 Motor Control Motor Control: Motor Control WNL ROM ROM: WFL Transfer SCALE: Activities may be completed with or without assistive devices. 9-Obmtnchbxw-bnccpaq completes the activity by him/herself with no assistance from a helper. 5-Set-up or Clean-up Assistance-helper sets up or cleans up; patient completes activity. [place] assists only prior to or following the activity. 4-Supervision or Touching Assistance-helper provides verbal cues and/or touching/steadying and/or contact guard assistance as patient completes activity. Assistance may be provided throughout the activity or intermittently. 3-Partial/Moderate Assistance-helper does LESS THAN HALF the effort. [place] lifts, holds or supports trunk or limbs, but provides less than half the effort. 2-Substantial/Maximal Assistance-helper does MORE THAN HALF the effort. [place] lifts or holds trunk or limbs and provides more than half the effort. 9-Nfouadqoe-znerlq does ALL the effort. Patient does none of the effort to complete the activity. Or, the assistance of 2 or more helpers is required for the patient to complete the activity. If activity was not attempted, code reason: 7-Patient Refused. 9-Not Applicable-not attempted and the patient did not perform the activity before the current illness, exacerbation or injury. 10-Not Attempted due to Environmental Limitations-(lack of equipment, weather restraints, etc.). 88-Not Attempted due to Medical Conditions or Safety Concerns. Transfers (B, C, W/C) (QC): 4 Gait Right Lower Extremity: Right Weight Bearing Status RLE: Partial Weight Bearing Left Lower Extremity: Left Weight Bearing Status LLE: Full Weight Bearing Summary/Comments Patient ambulated 150' with a rolling walker with CGA, has slow but steady ambulation. Patient also went up and down 1 step using a rolling walker with CGA and cues for foot placement. Treatment Rendered Treatment: Therapeutic Exercises, Gait Train, Step Train Exercise Instruction: Ankle Pumps Assessment/Goals Goal Time Frame: 1 Visit Understands HEP: Yes Safe Ambulation: Yes Plan Treatment Plan: Discharge PT/Family Agrees to Plan: Yes Time Time In: 1620 Time Out: 1633 Total Billed Treatment Time: 13 Billed Treatment Time 1 visit EVRADHA BATEMAN PT Oct 29, 2020 16:39
--- NOTE | 2020-10-29 16:53 | Diagnostic Imaging Report ---
INDICATION: Post foot surgery COMPARISON: None available TECHNIQUE: Two radiographs of the right foot dated 10/29/2020. FINDINGS: Amputation of the 2nd toe is noted. The osseous structures appear diffusely demineralized. No acute fracture or dislocation. Questionable lucencies within the 3rd, 4th, and 5th metatarsal heads. Small plantar calcaneal enthesophyte. Advanced background vascular calcifications. No suspicious radiopaque foreign body. IMPRESSION: Amputation of the 2nd toe without suspicious radiopaque foreign body. Questionable lucencies associated with the 3rd through 5th metatarsal heads. This could simply relate to overlying bandage or soft tissue gas, though osteomyelitis is not excluded. Recommend clinical correlation. Additionally, radiographic follow-up in 10-14 days is recommended. Dictated by: Dictated on workstation # [id number]
--- NOTE | 2020-10-29 23:02 | OPERATIVE REPORT ---
DATE OF SERVICE: 10/29/2020 SURGEON: Hayley French DPM. PREOPERATIVE DIAGNOSIS: Osteomyelitis, right second toe. POSTOPERATIVE DIAGNOSIS: Osteomyelitis, right second toe. PROCEDURE: Amputation of right second toe. WOUND CLASS: Contaminated. ANESTHESIA: General. HEMOSTASIS: Pneumatic ankle tourniquet was applied, but never inflated. PROCEDURE: Amputation of right second toe. INDICATION: This 84-year-old female presents with an open wound to the top of the right second toe with exposed bone. It was evident that there was osteomyelitis and in poor circulation. The patient has undergone a stent of the artery supplying blood to the right lower extremity. The wound began to heal, and we felt it was appropriate timing to remove the toe for best chance at healing. The patient is agreeable to this after risks and complications were discussed at length. No guarantees were given to the patient and she is willing to proceed. DESCRIPTION OF PROCEDURE: The patient was brought back to the operating table, placed in secure supine position. Appropriate timeout was performed. I had ordered a monitored anesthesia care for anesthesia but we ended up with a general anesthetic. A pneumatic ankle tourniquet was placed on the right lower extremity over several layers of padding but was never inflated throughout the procedure. The right foot was then anesthetized utilizing 10 mL of 1:1 mixture of 1% Xylocaine, 0.5% Marcaine injected in a digital block as well as a block to the second ray of the right foot. The right foot was then prepped and draped in normal sterile manner. The right foot was then addressed to the dorsal aspect of the right second toe where two semielliptical incisions were created starting at the metatarsophalangeal joint extending distally into the medial and lateral aspect of the proximal phalanx. The incision was then curved down inferiorly and meeting up with one another in a fish mouth type of incision. The power sagittal saw was then utilized to cut the proximal phalanx at mid diaphysis. The distal specimen was sent for gross and microscopic evaluation. Prior to the specimen leaving the back table, a small portion of the head of the proximal phalanx was sent for culture and sensitivity. The remaining proximal phalanx was soft, and this is likely due to osteopenia; however, it did not want to take a chance and the remainder of the proximal phalanx was surgically removed and disarticulated at the metatarsophalangeal joint. This proximal section was also sent for pathology to confirm clear proximal border. The articular cartilage of the head of the second metatarsal was found to be without pathology. No purulence or other abnormalities were identified. There was consistent oozing, but no active bleeders associated with the amputation site. The flexor and extensor tendons were identified and cut as proximally as possible. The wound was then flushed with power irrigation utilizing 1000 mL of normal saline. Before closing, a swab culture was taken of the wound to hopefully confirm a sterile environment. Closure was then performed in layers. Deep closure was performed with 4-0 Vicryl with a single stitch. Skin was then reapproximated utilizing 4-0 Prolene in a simple interrupted type stitch. Excellent skin proximity was noted without skin tension. Capillary refill time was less than 3 seconds to the tissue around the amputation site. Postoperative dressing consisted of Betadine soaked Adaptic, sterile 4 x 4, sterile Kerlix, all secured with a Coban wrap. The patient tolerated the anesthesia and procedure well and was transported from the operating room to the recovery area with vital signs stable. We will see her back in the office in approximately one week period of time or sooner if necessary. Job ID: [id number] DocumentID: [id number] Dictated Date: 10/29/2020 14:44:15 Chief Crna Date: 10/29/2020 23:01:40 Dictated By: YAZ VARGHESE
== END 2020-10-29 16:40 | disposition home or self-care (01) ==
LOC: SDC 12:06
PROVIDERS: ATTEND Podiatrist Foot & Ankle Surgery
DX: E11.69 Type 2 diabetes mellitus with other specified complication (principal); M86.9 Osteomyelitis, unspecified; I10 Essential (primary) hypertension; I25.10 Atherosclerotic heart disease of native coronary artery without angina pectoris; I48.91 Unspecified atrial fibrillation; J44.9 Chronic obstructive pulmonary disease, unspecified; K21.9 Gastro-esophageal reflux disease without esophagitis; E11.51 Type 2 diabetes mellitus with diabetic peripheral angiopathy without gangrene; Z79.84 Long term (current) use of oral hypoglycemic drugs; Z79.899 Other long term (current) drug therapy; Z95.5 Presence of coronary angioplasty implant and graft
CPT/HCPCS: 73620; 82947; 87070; 87075; 87077; 87081; 87101; 87186; 87205